=== PATIENT | female | born 1950 | race Caucasian/White ===

== ENCOUNTER → 2016-12-13 | Outpatient (CLI) | payer MEDICARE, BC ==
[2016-12-13 10:03] LABS: Anion Gap 12 mmol/L; Blood Urea Nitrogen 18 mg/dL (7-17); Calcium 9.9 mg/dL (8.4-10.2); Carbon Dioxide 27 mmol/L (22-30); Chloride 100 mmol/L (98-107); Cholesterol 182 mg/dL (<200); Glucose 87 mg/dL (74-99); HDL Cholesterol 66 mg/dL (40-60); Non-African American GFR(MDRD) 55 (>60 ml/min/1.73 sqM); Potassium 4.5 mmol/L (3.5-5.1); Sodium 139 mmol/L (137-145); Triglycerides 113 mg/dL (<150)
== END | disposition home or self-care (01) ==
LOC: LABWHC1 08:23
PROVIDERS: ATTEND Internal Medicine
DX: I11.9 Hypertensive heart disease without heart failure (principal); E78.2 Mixed hyperlipidemia
CPT/HCPCS: 36415; 80048; 80061

== ENCOUNTER 2016-12-15 01:35 | Emergency (ER) | payer MEDICARE, BC ==
[2016-12-15 01:43] VITALS: RESP 18
--- NOTE | 2016-12-15 02:17 | ED ---
General Adult HPI - General Chief complaint: Abdominal Pain Stated complaint: constipation Time Seen by Provider: 12/15/16 01:48 Source: patient Mode of arrival: ambulatory Limitations: no limitations - History of Present Illness Initial comments: This is a 66-year-old female with a history of constipation presents emergency department for constipation. She states the last time she had a bowel movement was 2 days ago. She was told by Dr. Flores to start taking Colace and Metamucil which she has been taking however she has not had a bowel movement. She states that she woke up tonight and felt very nauseated so she decided to come in. She was concerned about blockage. She denies any abdominal pain. No blood in the stool. Appears or chills. No other complaints. - Related Data Home Medications Medication Instructions Recorded Confirmed Calcium Carbonate/Vitamin D3 2 tab PO DAILY 08/20/15 06/12/16 [Calcium 600 + Vit D Tablet] Clopidogrel [Plavix] 75 mg PO DAILY 08/20/15 06/12/16 Diazepam [Valium] 10 mg PO BID 08/20/15 06/12/16 Fluocinolone Acetonide Oil 2 drop BOTH EARS BID PRN 08/20/15 06/12/16 [Fluocinolone Acetonide Oil (Otic)] Fluticasone Nasal [place] [Flonase 1 spray EA NOSTRIL DAILY PRN 08/20/15 06/12/16 Nasal [place]] HYDROcodone/APAP 5-325MG [[place] 5] 1 tab PO BID PRN 08/20/15 06/12/16 Ibuprofen [Advil] 200 mg PO Q6HR PRN 08/20/15 06/12/16 Loperamide [Imodium] 2 mg PO QID PRN 08/20/15 06/12/16 amLODIPine [Norvasc] 5 mg PO BID 08/20/15 06/12/16 Famotidine [Pepcid] 20 mg PO BID 08/21/15 06/12/16 L.acidoph,Paracasei, B.lactis 1 cap PO DAILY 08/21/15 06/12/16 [Probiotic] Meclizine [Antivert] 25 - 50 mg PO DAILY PRN 08/21/15 06/12/16 Oxybutynin Chloride [Oxybutynin 10 mg PO DAILY 08/21/15 06/12/16 Chloride ER] diphenhydrAMINE [Benadryl] 25 mg PO TID PRN 08/21/15 06/12/16 Amoxic-Pot Clav 875-125Mg 1 tab PO Q12HR 03/02/16 06/12/16 [Augmentin 875-125] Simvastatin [Zocor] 10 mg PO HS 03/02/16 06/12/16 Calcium Carbonate [Tums] 500 mg PO DAILY PRN 06/12/16 06/12/16 Estradiol Cream [Estrace Cream] 1 gm VAGINAL MOFR 06/12/16 06/12/16 Loratadine [Claritin] 10 mg PO DAILY PRN 06/12/16 06/12/16 Naphazoline HCl/Glycerin [Clear 15 ml OP DAILY 06/12/16 06/12/16 Eyes Max Redness Rlf Drp] Polyethylene Glycol 3350 [Miralax] 17 gm PO DAILY 06/12/16 06/12/16 Previous Rx's Medication Instructions Recorded Bisacodyl [Dulcolax] 10 mg RECTAL DAILY #15 supp 12/15/16 Allergies Allergy/AdvReac Type Severity Reaction Status Date / Time cefuroxime axetil Allergy Unknown Verified 12/15/16 01:43 [From Ceftin] levofloxacin [From Levaquin] Allergy Unknown Verified 12/15/16 01:43 Review of Systems ROS Statement: Those systems with pertinent positive or pertinent negative responses have been documented in the HPI. ROS Other: All systems not noted in ROS Statement are negative. Past Medical History Past Medical History: CVA/TIA, GERD/Reflux, Hyperlipidemia, Hypertension, Osteoarthritis (OA) Additional Past Medical History / Comment(s): IBS, overactive bladder; vertigo, steroids recently prescribed History of Any Multi-Drug Resistant Organisms: None Reported Past Surgical History: Breast Surgery Past Anesthesia/Blood Transfusion Reactions: No Reported Reaction Past Psychological History: Anxiety Smoking Status: Former smoker Past Alcohol Use History: None Reported Additional Past Alcohol Use History / Comment(s): started smoking age [age] years old quit 30 years ago 2 ppd Past Drug Use History: None Reported - Past Family History Father Family Medical History: Myocardial Infarction ([place]) Mother Family Medical History: Congestive Heart Failure (CHF) General Exam - General Exam Comments Initial Comments: Constitutional: Awake alert Appears comfortable Head: Normocephalic atraumatic Eyes: no conjunctival injection No scleral icterus EOMI Neck: No JVD Supple Heart: Regular rate rhythm normal S1-S2 no murmurs Lungs: Clear to auscultation bilaterally No wheezing No rales Abdomen: Soft nondistended nontender Extremities: Non edematous DP pulses intact Radial pulses intact Neuro: A&Ox3 No focal neurologic deficits Psych: Appropriate mood and affect Limitations: no limitations Course Vital Signs 12/15/16 12/15/16 01:40 03:47 Temperature 96.9 F L 96.8 F L Pulse Rate 87 78 Respiratory 18 18 Rate Blood Pressure 175/74 142/72 O2 Sat by Pulse 98 98 Oximetry Medical Decision Making - Medical Decision Making This is a 58-year-old female who presents emergency department for constipation. She was given a molasses enema with good result and had a bowel movement. She states she felt improved. Told her that I would send her home with o'clock suppositories. She can take these in addition to her Colace and Metamucil. She is to follow-up with Dr. hill as an outpatient. She can return to his worsening symptoms. Disposition Clinical Impression: Constipation Disposition: HOME SELF-CARE Condition: Stable Instructions: Constipation (ED) Prescriptions: Bisacodyl [Dulcolax] 10 mg RECTAL DAILY #15 supp Referrals: Munir Beltran MD [Primary Care Provider] - 1-2 days Luigi Lew MD [Medical Doctor] - 1-2 days
--- NOTE | 2016-12-15 02:48 | XR ---
EXAMINATION TYPE: XR abdomen acute w cxr DATE OF EXAM: 12/15/2016 2:18 AM COMPARISON: Abdominal x-ray 03/02/2016 and chest x-rays 03/02/2016. HISTORY: Constipation for several days TECHNIQUE: Single view of the chest and 2 views of the abdomen are submitted. FINDINGS: Single view of the chest fails demonstrate evidence for acute pulmonary disease. Chronic lung change s are suggested. Heart is not enlarged. There is no evidence for pneumoperitoneum. Supine and upright radiographs of abdomen showed mild to moderate gas distention of bowel loops in th e abdomen with mild focal ileus with few air-fluid levels in the midabdomen. Moderate to large amount of fecal material is noted in the colon and rectum. No unusual calcifications. IMPRESSION: 1. No active lung infiltrates. Chronic lung changes are suggested. 2. Suggestion of mild ileus. 3. Patient is constipated.
[2016-12-15 03:48] VITALS: BP 142/72; PULSE 78; TEMP 96.8
== END 2016-12-15 03:53 | disposition home or self-care (01) ==
LOC: EC 01:35
DX: K59.00 Constipation, unspecified (principal); M19.90 Unspecified osteoarthritis, unspecified site; I10 Essential (primary) hypertension; K21.9 Gastro-esophageal reflux disease without esophagitis; K58.9 Irritable bowel syndrome, unspecified; E78.5 Hyperlipidemia, unspecified; N32.81 Overactive bladder; R42 Dizziness and giddiness; F41.9 Anxiety disorder, unspecified; Z87.891 Personal history of nicotine dependence; Z79.899 Other long term (current) drug therapy; Z79.02 Long term (current) use of antithrombotics/antiplatelets; Z88.1 Allergy status to other antibiotic agents; Z86.73 Personal history of transient ischemic attack (TIA), and cerebral infarction without residual deficits
CPT/HCPCS: 74022; 99284

== ENCOUNTER 2016-12-16 22:54 | Inpatient (IN) | payer MEDICARE, BC ==
[2016-12-16] MEDS ORDERED: SODIUM CHLORIDE 0.9% 1,000 ML IV STA (23:44)
[2016-12-16] MEDS ORDERED: ACETAMINOPHEN IV (For NPO) 1,000 MG in SALINE 1 100ML.BAG IVPB STA (23:46)
[2016-12-16] MEDS ORDERED: FAMOTIDINE 20 MG/2 ML VIAL IV STA (23:46)
[2016-12-17 00:13] LABS: Basophils % (A) 0 %; Hyperchromasia Moderate; Luc # (Auto) 0.18; MCHC 36.2 g/dL (31.0-37.0); RDW 12.5 % (11.5-15.5)
[2016-12-17 00:19] LABS: Amylase 38 U/L (30-110); Anion Gap 8 mmol/L; Calcium 10.1 mg/dL (8.4-10.2); Carbon Dioxide 26 mmol/L (22-30); Chloride 94 mmol/L (98-107); Glucose 100 mg/dL (74-99); Non-African American GFR(MDRD) 55 (>60 ml/min/1.73 sqM); Sodium 128 mmol/L (137-145); Total Bilirubin 0.5 mg/dL (0.2-1.3); Total Protein 6.6 g/dL (6.3-8.2)
[2016-12-17 00:20] LABS: ALT 29 U/L (9-52); AST 17 U/L (14-36); Alkaline Phosphatase 51 U/L (38-126); Blood Urea Nitrogen 12 mg/dL (7-17); Potassium 4.4 mmol/L (3.5-5.1)
[2016-12-17 00:22] LABS: CH 33.4; Eosinophils # (A) 0.1 k/uL (0-0.7); Eosinophils % (A) 1 %; HCT 37.7 % (34.0-46.0); HDW 3.03; HGB 13.6 gm/dL (11.4-16.0); Luc % (Auto) 3; Lymphocytes # (A) 1.6 k/uL (1.0-4.8); Lymphocytes % (A) 23 %; MCH 31.1 pg (25.0-35.0); MCV 86.1 fL (80.0-100.0); Mean Platelet Volume 6.3; Monocytes # (A) 0.4 k/uL (0-1.0); Monocytes % (A) 7 %; Neutrophils # (A) 4.5 k/uL (1.3-7.7); Neutrophils % (A) 67 %; RBC 4.38 m/uL (3.80-5.40); WBC 6.7 k/uL (3.8-10.6); WBC (Perox) 6.89
[2016-12-17 00:26] LABS: Appearance,Urine Clear (Clear); Bilirubin,Urine Negative (Negative); Glucose,Urine (UA) Negative (Negative); Ketones,Urine Negative (Negative); Leukocyte Esterase,Urine Moderate (Negative); Mucus,Urine Rare /hpf; Nitrite,Urine Negative (Negative); Particle Count 1748; Protein,Urine Negative (Negative); RBC,Urine <1 /hpf (0-5); Specific Gravity,Urine 1.003 (1.001-1.035); Squamous Epithelial Cell,Urine 2 /hpf (0-4); UA Billing (MACRO vs. MICRO) MICRO; Urobilinogen,Urine <2.0 mg/dL (<2.0); WBC,Urine 5 /hpf (0-5)
[2016-12-17 00:28] LABS: Creatine Kinase 176 U/L (30-135)
[2016-12-17 00:41] LABS: Creatine Kinase MB 2.1 ng/mL (0.0-2.4); Troponin I <0.012 ng/mL (0.000-0.034)
--- NOTE | 2016-12-17 00:43 | XR ---
EXAMINATION TYPE: XR chest 2V DATE OF EXAM: 12/17/2016 12:19 AM COMPARISON: 12/15/2016 HISTORY: History of cough, history of breast surgery. TECHNIQUE: Frontal and lateral views of the chest are obtained. FINDINGS: Mild chronic interstitial lung changes are suggested bilaterally. There is no focal air space opacity, pleural effusion, or pneumothorax seen. The cardiac silhouette size is within normal limits. Mild degenerative changes are present in the thoracic spine. IMPRESSION: 1. No acute cardiopulmonary process. 2. No significant change.
--- NOTE | 2016-12-17 00:45 | XR ---
EXAMINATION TYPE: XR abdomen 1V DATE OF EXAM: 12/17/2016 12:20 AM CLINICAL HISTORY: Abdominal pain, constipation. TECHNIQUE: 2 supine frontal radiographs of abdomen were obtained. COMPARISON: 12/15/2016 FINDINGS: Scattered gas is seen in non-distended small bowel loops. [id number] fecal material is noted in the colon. There is no visceromegaly, pneumoperitoneum, or abnormal calcification apprec iated. The lung bases are clear and the osseous structures are intact. IMPRESSION: Mild to moderate fecal material is noted in the colon. Overall nonobstructive bowel gas pattern.
--- NOTE | 2016-12-17 00:55 | ED ---
Abdominal Pain HPI - General Chief Complaint: Abdominal Pain Stated Complaint: Nausea/Abd Pain Time Seen by Provider: 12/16/16 23:37 Source: patient, family, RN notes reviewed, old records reviewed Mode of arrival: wheelchair Limitations: no limitations - History of Present Illness Initial Comments: This is a 66-year-old female who presents with complaints of abdominal pain. She states is burning in nature and radiates up and down her abdomen and her lower chest. States he has some chills she was initially diverticulosis no fevers or sweats. She also complains of a toothache which seems to be unrelated. She was seen here 2 days ago and diagnosed with constipation. She' s taken to suppositories one laxative one enema. No other complaints at this time MD Complaint: abdominal pain - Related Data Home Medications Medication Instructions Recorded Confirmed Calcium Carbonate/Vitamin D3 2 tab PO DAILY 08/20/15 06/12/16 [Calcium 600 + Vit D Tablet] Clopidogrel [Plavix] 75 mg PO DAILY 08/20/15 06/12/16 Diazepam [Valium] 10 mg PO BID 08/20/15 06/12/16 Fluocinolone Acetonide Oil 2 drop BOTH EARS BID PRN 08/20/15 06/12/16 [Fluocinolone Acetonide Oil (Otic)] Fluticasone Nasal [place] [Flonase 1 spray EA NOSTRIL DAILY PRN 08/20/15 06/12/16 Nasal [place]] HYDROcodone/APAP 5-325MG [[place] 5] 1 tab PO BID PRN 08/20/15 06/12/16 Ibuprofen [Advil] 200 mg PO Q6HR PRN 08/20/15 06/12/16 Loperamide [Imodium] 2 mg PO QID PRN 08/20/15 06/12/16 amLODIPine [Norvasc] 5 mg PO BID 08/20/15 06/12/16 Famotidine [Pepcid] 20 mg PO BID 08/21/15 06/12/16 L.acidoph,Paracasei, B.lactis 1 cap PO DAILY 08/21/15 06/12/16 [Probiotic] Meclizine [Antivert] 25 - 50 mg PO DAILY PRN 08/21/15 06/12/16 Oxybutynin Chloride [Oxybutynin 10 mg PO DAILY 08/21/15 06/12/16 Chloride ER] diphenhydrAMINE [Benadryl] 25 mg PO TID PRN 08/21/15 06/12/16 Amoxic-Pot Clav 875-125Mg 1 tab PO Q12HR 03/02/16 06/12/16 [Augmentin 875-125] Simvastatin [Zocor] 10 mg PO HS 03/02/16 06/12/16 Calcium Carbonate [Tums] 500 mg PO DAILY PRN 06/12/16 06/12/16 Estradiol Cream [Estrace Cream] 1 gm VAGINAL MOFR 06/12/16 06/12/16 Loratadine [Claritin] 10 mg PO DAILY PRN 06/12/16 06/12/16 Naphazoline HCl/Glycerin [Clear 15 ml OP DAILY 06/12/16 06/12/16 Eyes Max Redness Rlf Drp] Polyethylene Glycol 3350 [Miralax] 17 gm PO DAILY 06/12/16 06/12/16 Previous Rx's Medication Instructions Recorded Bisacodyl [Dulcolax] 10 mg RECTAL DAILY #15 supp 12/15/16 Allergies Allergy/AdvReac Type Severity Reaction Status Date / Time cefuroxime axetil Allergy Unknown Verified 12/16/16 23:16 [From Ceftin] levofloxacin [From Levaquin] Allergy Unknown Verified 12/16/16 23:16 Review of Systems ROS Statement: Those systems with pertinent positive or pertinent negative responses have been documented in the HPI. ROS Other: All systems not noted in ROS Statement are negative. Past Medical History Past Medical History: CVA/TIA, GERD/Reflux, Hyperlipidemia, Hypertension, Osteoarthritis (OA) Additional Past Medical History / Comment(s): IBS, overactive bladder; vertigo, steroids recently prescribed History of Any Multi-Drug Resistant Organisms: None Reported Past Surgical History: Breast Surgery Past Anesthesia/Blood Transfusion Reactions: No Reported Reaction Past Psychological History: Anxiety Smoking Status: Former smoker Past Alcohol Use History: None Reported Additional Past Alcohol Use History / Comment(s): started smoking age [age] years old quit 30 years ago 2 ppd Past Drug Use History: None Reported - Past Family History Father Family Medical History: Myocardial Infarction ([place]) Mother Family Medical History: Congestive Heart Failure (CHF) General Exam - General Exam Comments Initial Comments: This is a well-developed well-nourished awake alert oriented x3 female Limitations: no limitations General appearance: alert, in no apparent distress Head exam: Present: atraumatic, normocephalic, normal inspection Eye exam: Present: normal appearance, PERRL, EOMI. Absent: scleral icterus, conjunctival injection, periorbital swelling ENT exam: Present: normal exam, mucous membranes moist Neck exam: Present: normal inspection. Absent: tenderness, meningismus, lymphadenopathy Respiratory exam: Present: normal lung sounds bilaterally. Absent: respiratory distress, wheezes, rales, rhonchi, stridor Cardiovascular Exam: Present: regular rate, normal rhythm, normal heart sounds. Absent: systolic murmur, diastolic murmur, rubs, gallop, clicks GI/Abdominal exam: Present: soft, normal bowel sounds. Absent: distended, tenderness, guarding, rebound, rigid Extremities exam: Present: normal inspection, full ROM, normal capillary refill. Absent: tenderness, pedal edema, joint swelling, calf tenderness Back exam: Present: normal inspection Neurological exam: Present: alert, oriented X3, CN II-XII intact Psychiatric exam: Present: normal affect, normal mood Skin exam: Present: warm, dry, intact, normal color. Absent: rash Course Vital Signs 12/16/16 23:10 Temperature 98.4 F Pulse Rate 92 Respiratory 16 Rate Blood Pressure 165/74 O2 Sat by Pulse 98 Oximetry Medical Decision Making - Medical Decision Making The patient continues with abdominal pain and nausea she will be admitted for IV hydration and evaluation. I did discuss the case with Dr. Ivy - Lab Data Result diagrams: 12/17/16 00:00 12/17/16 00:00 Lab Results 12/17/16 12/17/16 12/17/16 Range/Units 00:00 00:00 00:00 WBC 6.7 (3.8-10.6) k/uL RBC 4.38 (3.80-5.40) m/uL Hgb 13.6 (11.4-16.0) gm/dL Hct 37.7 (34.0-46.0) % MCV 86.1 (80.0-100.0) fL MCH 31.1 (25.0-35.0) pg MCHC 36.2 (31.0-37.0) g/dL RDW 12.5 (11.5-15.5) % Plt Count 336 (150-450) k/uL Neutrophils % 67 % Lymphocytes % 23 % Monocytes % 7 % Eosinophils % 1 % Basophils % 0 % Neutrophils # 4.5 (1.3-7.7) k/uL Lymphocytes # 1.6 (1.0-4.8) k/uL Monocytes # 0.4 (0-1.0) k/uL Eosinophils # 0.1 (0-0.7) k/uL Basophils # 0.0 (0-0.2) k/uL Hyperchromasia Moderate Sodium 128 L (137-145) mmol/L Potassium 4.4 (3.5-5.1) mmol/L Chloride 94 L (98-107) mmol/L Carbon Dioxide 26 (22-30) mmol/L Anion Gap 8 mmol/L BUN 12 (7-17) mg/dL Creatinine 1.00 (0.52-1.04) mg/dL Est GFR (MDRD) Af Amer >60 (>60 ml/min/1.73 sqM) Est GFR (MDRD) Non-Af 55 (>60 ml/min/1.73 sqM) Glucose 100 H (74-99) mg/dL Calcium 10.1 (8.4-10.2) mg/dL Magnesium 2.0 (1.6-2.3) mg/dL Total Bilirubin 0.5 (0.2-1.3) mg/dL AST 17 (14-36) U/L ALT 29 (9-52) U/L Alkaline Phosphatase 51 (38-126) U/L Total Creatine Kinase 176 H (30-135) U/L CK-MB (CK-2) 2.1 (0.0-2.4) ng/mL CK-MB (CK-2) Rel Index 1.2 Troponin I <0.012 (0.000-0.034) ng/mL Total Protein 6.6 (6.3-8.2) g/dL Albumin 4.0 (3.5-5.0) g/dL Amylase 38 (30-110) U/L Lipase 89 (23-300) U/L Urine Color Urine Appearance (Clear) Urine pH (5.0-8.0) Ur Specific [place] (1.001-1.035) Urine Protein (Negative) Urine Glucose (UA) (Negative) Urine Ketones (Negative) Urine Blood (Negative) Urine Nitrate (Negative) Urine Bilirubin (Negative) Urine Urobilinogen (<2.0) mg/dL Ur Leukocyte Esterase (Negative) Urine RBC (0-5) /hpf Urine WBC (0-5) /hpf Ur Squamous Epith Cells (0-4) /hpf Urine Mucus (None) /hpf 12/17/16 Range/Units 00:00 WBC (3.8-10.6) k/uL RBC (3.80-5.40) m/uL Hgb (11.4-16.0) gm/dL Hct (34.0-46.0) % MCV (80.0-100.0) fL MCH (25.0-35.0) pg MCHC (31.0-37.0) g/dL RDW (11.5-15.5) % Plt Count (150-450) k/uL Neutrophils % % Lymphocytes % % Monocytes % % Eosinophils % % Basophils % % Neutrophils # (1.3-7.7) k/uL Lymphocytes # (1.0-4.8) k/uL Monocytes # (0-1.0) k/uL Eosinophils # (0-0.7) k/uL Basophils # (0-0.2) k/uL Hyperchromasia Sodium (137-145) mmol/L Potassium (3.5-5.1) mmol/L Chloride (98-107) mmol/L Carbon Dioxide (22-30) mmol/L Anion Gap mmol/L BUN (7-17) mg/dL Creatinine (0.52-1.04) mg/dL Est GFR (MDRD) Af Amer (>60 ml/min/1.73 sqM) Est GFR (MDRD) Non-Af (>60 ml/min/1.73 sqM) Glucose (74-99) mg/dL Calcium (8.4-10.2) mg/dL Magnesium (1.6-2.3) mg/dL Total Bilirubin (0.2-1.3) mg/dL AST (14-36) U/L ALT (9-52) U/L Alkaline Phosphatase (38-126) U/L Total Creatine Kinase (30-135) U/L CK-MB (CK-2) (0.0-2.4) ng/mL CK-MB (CK-2) Rel Index Troponin I (0.000-0.034) ng/mL Total Protein (6.3-8.2) g/dL Albumin (3.5-5.0) g/dL Amylase (30-110) U/L Lipase (23-300) U/L Urine Color Colorless Urine Appearance Clear (Clear) Urine pH 7.0 (5.0-8.0) Ur Specific [place] 1.003 (1.001-1.035) Urine Protein Negative (Negative) Urine Glucose (UA) Negative (Negative) Urine Ketones Negative (Negative) Urine Blood Negative (Negative) Urine Nitrate Negative (Negative) Urine Bilirubin Negative (Negative) Urine Urobilinogen <2.0 (<2.0) mg/dL Ur Leukocyte Esterase Moderate H (Negative) Urine RBC <1 (0-5) /hpf Urine WBC 5 (0-5) /hpf Ur Squamous Epith Cells 2 (0-4) /hpf Urine Mucus Rare H (None) /hpf - Radiology Data Radiology results: report reviewed (I did review the imaging and reports no definite acute findings or is evidence of uterine fibroids and diverticulosis.) , image reviewed Disposition Clinical Impression: Abdominal pain, Intractable nausea and vomiting, Hyponatremia Disposition: ADMITTED IP TO THIS [facility] Condition: Stable Decision Time: 02:30
[2016-12-17] MEDS ORDERED: KETOROLAC 30 MG/ML 1 ML VIAL IVP STA (01:11)
[2016-12-17] MEDS ORDERED: MORPHINE SULFATE 4 MG/ML SYRINGE IVP STA (01:35)
[2016-12-17] MEDS ORDERED: SODIUM CHLORIDE 0.9% 1,000 ML IV STA (01:35)
--- NOTE | 2016-12-17 02:13 | CT ---
EXAMINATION TYPE: CT abdomen pelvis wo con DATE OF EXAM: 12/17/2016 1:18 AM COMPARISON: 03/02/2016 HISTORY: Abd pain, constipation. CT DLP: 234.50 mGycm Automated exposure control for dose reduction was used. TECHNIQUE: Helical acquisition of images was performed from the lung bases through the pelvis. FINDINGS: LUNG BASES: No significant abnormality is appreciated. LIVER/GB: Slight irregularity is noted in the outer contour of liver and possibility of mild acidosis changes and also portal hypertension changes cannot be excluded. Gallbladder is contracted. Thickened wall of gallbladder is probably related to contracted status. PANCREAS: No significant abnormality is seen. SPLEEN: No significant abnormality is seen. ADRENALS: No significant abnormality is seen. KIDNEYS: Mild fullness is noted in the bilateral kidneys without significant hydronephrosis or obstru cting opaque stones. RETROPERITONEAL ADENOPATHY: None visualized REPRODUCTIVE ORGANS: Uterus appears slightly prominent with possible uterine fibroids. There is 3.4 x 3.6 cm solid mass like area in the right adnexa in the axial image 66 and is probably related to sub serosal fibroid. Ovaries are not well visualized. URINARY BLADDER: Urinary bladder is moderately distended. PELVIC ADENOPATHY: None visualized. OSSEOUS STRUCTURES: There is mild degenerative changes in the thoracolumbar spine with mild grade 1 anterior spondylolisthesis of L4 on L5 vertebra with vacuum disc phenomenon with the degenerative dis c disease changes. BOWEL: Small hiatal hernia is noted. Small bowel loops showed mild fluid distention without significant obstruction. Colon showed moderate fecal material and gas. Mild to moderate colonic diverticulosis is noted. No si gnificant acute diverticulitis changes are present. Visualized appendix appears grossly unremarkable in the coronal image 29. OTHER: Small fat-containing umbilical hernia is noted. IMPRESSION: 1. MODERATE FECAL MATERIAL IN THE COLON. MILD COLONIC DIVERTICULOSIS IS NOTED WITHOUT ACUTE DIVERTICU LITIS. 2. MILD FULLNESS IS NOTED IN BILATERAL KIDNEYS WITHOUT SIGNIFICANT HYDRONEPHROSIS OR OBSTRUCTING STON ES. 3. APPENDIX APPEARS UNREMARKABLE. 4. 3.4 x 3.6 cm solid masslike area in the right side of the uterus is probably related to uterine fi broid. An ultrasound study would BE helpful in the evaluation. 5. No significant acute processes noted in the abdomen and pelvis.
[2016-12-17] MEDS ORDERED: ONDANSETRON 4 MG/2 ML VIAL IVP STA (02:32)
[2016-12-17] MEDS ORDERED: DICYCLOMINE 10 MG/ML 2 ML AMP IM STA (02:33)
[2016-12-17] MEDS ORDERED: NALOXONE 0.4 MG/ML 1 ML VIAL IV PRN (03:30)
[2016-12-17] MEDS: SODIUM CHLORIDE 0.9% 1,000 ML IV SCH ×3 (04:37→17:06)
[2016-12-17] MEDS ORDERED: KETOROLAC 30 MG/ML 1 ML VIAL IVP SCH (06:00)
[2016-12-17] MEDS: HYDROmorphone 1 MG/ML 1 ML SYRINGE IV PRN ×4 (08:45→23:29)
[2016-12-17] MEDS: ONDANSETRON 4 MG/2 ML VIAL IVP PRN ×2 (08:45→19:15)
[2016-12-17] MEDS: PANTOPRAZOLE 40 MG/10 ML VIAL IV SCH (10:01)
--- NOTE | 2016-12-17 16:28 | P.GSCN ---
History of Present Illness Consult date: 12/17/16 Reason for Consult: Abdominal pain constipation History of present illness: Patient is known to our service. The patient has issues with chronic constipation. She had an upper and lower endoscopy last year which did not reveal any evidence of obstruction. She has tried a variety of different stool softeners and cathartics at home. She struggles between constipation and diarrhea. She came to the hospital because of lower abdominal pain and persistent constipation. Enema is resolved her constipation she states. She had a CAT scan which showed a right pelvic mass for which a pelvic ultrasound is been ordered. Review of Systems The patient denies any acute changes in his vision or hearing, no dysphagia or odynophagia, no chest pain or shortness of breath, no dysuria or hematuria, no headache, no runny nose, no rectal bleeding or melena, no unexplained weight loss Past Medical History Past Medical History: CVA/TIA, GERD/Reflux, Hyperlipidemia, Hypertension, Osteoarthritis (OA) Additional Past Medical History / Comment(s): IBS, overactive bladder; vertigo, steroids recently prescribed, diverticulosis, uterine fibroids History of Any Multi-Drug Resistant Organisms: None Reported Past Surgical History: Breast Surgery Past Anesthesia/Blood Transfusion Reactions: No Reported Reaction Past Psychological History: Anxiety Smoking Status: Former smoker Past Alcohol Use History: None Reported Additional Past Alcohol Use History / Comment(s): started smoking age [age] years old quit 30 years ago 2 ppd Past Drug Use History: None Reported - Past Family History Father Family Medical History: Myocardial Infarction ([place]) Mother Family Medical History: Congestive Heart Failure (CHF) Medications and Allergies Home Medications Medication Instructions Recorded Confirmed Type Calcium Carbonate/Vitamin D3 2 tab PO DAILY 08/20/15 12/17/16 History [Calcium 600 + Vit D Tablet] Clopidogrel [Plavix] 75 mg PO DAILY 08/20/15 12/17/16 History Diazepam [Valium] 10 mg PO BID 08/20/15 12/17/16 History Fluocinolone Acetonide Oil 2 drop BOTH EARS BID PRN 08/20/15 12/17/16 History [Fluocinolone Acetonide Oil (Otic)] HYDROcodone/APAP 5-325MG [[place] 5] 1 tab PO BID PRN 08/20/15 12/17/16 History Ibuprofen [Advil] 200 mg PO Q6HR PRN 08/20/15 12/17/16 History Loperamide [Imodium] 2 mg PO QID PRN 08/20/15 12/17/16 History amLODIPine [Norvasc] 5 mg PO BID 08/20/15 12/17/16 History L.acidoph,Paracasei, B.lactis 1 cap PO DAILY 08/21/15 12/17/16 History [Probiotic] Meclizine [Antivert] 25 - 50 mg PO DAILY PRN 08/21/15 12/17/16 History Oxybutynin Chloride [Oxybutynin 10 mg PO DAILY 08/21/15 12/17/16 History Chloride ER] diphenhydrAMINE [Benadryl] 25 mg PO TID PRN 08/21/15 12/17/16 History Calcium Carbonate [Tums] 500 - 1,000 mg PO TID PRN 06/12/16 12/17/16 History Loratadine [Claritin] 10 mg PO DAILY PRN 06/12/16 12/17/16 History Naphazoline HCl/Glycerin [Clear 1 - 2 drops BOTH EYES DAILY PRN 06/12/16 History Eyes Max Redness Rlf Drp] Acetaminophen [Tylenol Arthritis] 650 mg PO Q4-6H PRN 12/17/16 12/17/16 History Aspirin/Acetaminophen/Caffeine 1 - 2 tab PO BID PRN 12/17/16 12/17/16 History [Excedrin Migraine Caplet] Atorvastatin Calcium [Lipitor] 10 mg PO DAILY 12/17/16 12/17/16 History Bisacodyl [Dulcolax] 10 mg RECTAL DAILY PRN 12/17/16 12/17/16 History Docusate [Colace] 100 mg PO BID 12/17/16 12/17/16 History Fexofenadine HCl [Charo Allergy] 90 mg PO DAILY 12/17/16 12/17/16 History Naproxen Sodium [Aleve] 220 mg PO Q12H PRN 12/17/16 12/17/16 History Phenyleph/Pramoxin/Glycr/W.pet 1 applic RECTAL DAILY PRN 12/17/16 12/17/16 History [Preparation H Cream] Phenylephrine HCl/[place] Butter 1 supp RECTAL DAILY PRN 12/17/16 12/17/16 History [Preparation H Suppository] Ranitidine HCl [Zantac] 75 mg PO AC-BID PRN 12/17/16 12/17/16 History Simethicone [Gas-X] 125 mg PO DAILY PRN 12/17/16 12/17/16 History Spironolactone [Aldactone] 25 mg PO BID 12/17/16 12/17/16 History Triamcinolone Acetonide [Nasacort] 1 - 2 spray EA NOSTRIL DAILY PRN 12/17/1604/27 History Wheat Dextrin [Benefiber] 1 packet PO TID 12/17/16 12/17/16 History Allergies Allergy/AdvReac Type Severity Reaction Status Date / Time cefuroxime axetil Allergy Unknown Verified 12/17/16 08:27 [From Ceftin] dicyclomine [From Bentyl] Allergy Unknown Verified 12/17/16 08:27 hyoscyamine [From Levbid] Allergy Unknown Verified 12/17/16 08:27 levofloxacin [From Levaquin] Allergy Unknown Verified 12/17/16 08:27 tramadol Allergy Unknown Verified 12/17/16 08:27 Surgical - Exam Vital Signs Temp Pulse Resp BP Pulse Ox 98.4 F 92 16 165/74 98 12/16/16 23:10 12/16/16 23:10 12/16/16 23:10 12/16/16 23:10 12/16/16 23:10 Physical exam: General: Well-developed, well-nourished HEENT: Normocephalic, sclerae nonicteric Abdomen: Nontender, nondistended Extremities: No edema Neuro: Alert and oriented Results - Labs 12/17/16 00:00 12/17/16 00:00 Assessment and Plan (1) Chronic constipation Narrative/Plan: Continue stool softeners. No surgical intervention planned. Status: Acute
[2016-12-17] MEDS ORDERED: DICYCLOMINE 10 MG CAP PO PRN (16:29)
[2016-12-17] MEDS ORDERED: MAGNESIUM HYDROXIDE 2,400 MG/10 ML CUP PO PRN (16:29)
--- NOTE | 2016-12-17 18:47 | US ---
EXAMINATION TYPE: US pelvis complete transvag DATE OF EXAM: 12/17/2016 6:24 PM COMPARISON: US, CT, and MRI in PACS CLINICAL HISTORY: uterine fibroids. Patient states she is not having any pelvic pain at this time TECHNIQUE: Transvaginal (TV) and Transabdominal (TA) Date of LMP: About 20 years ago EXAM MEASUREMENTS: Uterus: 4.5 x 2.6 x 3.0 cm cm Endometrial Stripe: 0.2 cm Right Ovary: Not visualized with certainty Left Ovary: 2.2 x 1.1 x 1.5 cm TECHNOLOGIST IMPRESSION: 1. Uterus: Multiple probable fibroids visualized, largest in the left uterine fundus measuring 2.2 x 1.8 x 2.1 2. Endometrium: wnl 3. Right Ovary: Not visualized with certainty. Within the right adnexa, there is a heterogeneous are a measuring 4.8 x 3.0 x 4.2 cm. There is bloodflow within this area. 4. Left Ovary: wnl 5. Bilateral Adnexa: Left adnexa: wnl, right adnexa: see above 6. Posterior cul-de-sac: wnl IMPRESSION: There is a complex area that measures overall 5 x 3 cm involving the right adnexa that co uld be an enlarged right ovary and solid ovarian mass. Follow-up is recommended.
--- NOTE | 2016-12-17 20:37 | HP ---
DATE OF ADMISSION: 12/17/2016 CHIEF COMPLAINT: Abdominal pain, nausea and vomiting. HISTORY OF PRESENT ILLNESS: This is a 66-year-old white female who was having abdominal pain, nausea and vomiting for about 2 days. Patient was in the emergency room with constipation 2 or 3 days ago. Patient denies any fever. Denies any vomiting of blood. She also has had no diarrhea. In the emergency room, her CT scan showed evidence of diverticulosis but no diverticulitis. There was a mass near the uterus, possibly due to fibroid. CBC showed a WBC count of 6.7, hemoglobin 13.6 and platelet count 336,000. Sodium was 128, potassium 4.4; BUN 12, creatinine 1.00. Blood sugar was 100. Liver enzymes within normal limits. Amylase and lipase within normal limits. Patient was admitted to the hospital for further evaluation and treatment. PAST MEDICAL HISTORY: 1. History of hypertensive cardiovascular disease. 2. Chronic obstructive pulmonary disease. 3. Gastroesophageal reflux disease. 4. Past history of CVA and TIA. Her current medications include: 1. Plavix 75 mg p.o. daily. 2. Valium 10 mg b.i.d. p.r.n. 3. Nasal sprays. 4. Calcium with vitamin D. 5. [place] 5/325 one b.i.d. p.r.n. 6. Imodium p.r.n. 7. Antivert 25 mg daily p.r.n. for dizziness. 8. Oxybutynin 10 mg p.o. daily. ALLERGIES: She has QUESTIONABLE ALLERGY TO CEFTIN AND LEVAQUIN. She does not smoke and she does not drink alcohol. Family history is strongly positive for heart disease. REVIEW OF SYSTEMS: Patient denies any headache. Appetite has been poor lately. She denies any chest pain or cough. She has abdominal pain, as mentioned before. She has no polyuria or dysuria. She has no neurological symptoms. Physical examination reveals a 66-year-old white female, well nourished and well developed. She is alert and oriented. She is complaining of abdominal pain, but she is not in acute distress. There is no jaundice. There is no generalized lymphadenopathy. There are no petechiae or bruises. Temperature in the ER was 98.4, respiration 16, blood pressure 165/74, oxygen saturation 98%. There is no jaundice. There is no generalized lymphadenopathy. There are no petechiae or bruises. Examination of the ENT is negative. Neck is supple. There is no jugular venous distention. There is no goiter. There is no carotid bruit. Heart is in sinus rhythm. Lungs are clear to auscultation and percussion. Abdomen is soft and non-tender. There is no mass palpable. Examination of the lower extremities reveals no pitting edema. Neurologic examination does not reveal any localizing signs. IMPRESSION: 1. Abdominal pain, nausea and vomiting. 2. Hyponatremia. 3. Diverticulosis of the colon. 4. Past history of cerebrovascular accident and transient ischemic attack. 5. Hypertensive cardiovascular disease. 6. Hyperlipidemia. 7. Chronic obstructive pulmonary disease. PLAN: Patient will be admitted to hospital. She will be given IV fluids to correct the electrolyte imbalance. Also initially she will be placed on liquid diet and placed back on her previous home medications. Pain will be controlled with Dilaudid given on a p.r.n. basis. Will also get surgical consultation; ( ) has asked Dr. Lew to see the patient in consultation. Prognosis is guarded. The diagnoses, prognosis and therapeutic plans were discussed in detail with the patient.
[2016-12-18] MEDS: HYDROmorphone 1 MG/ML 1 ML SYRINGE IV PRN ×5 (03:31→21:14)
[2016-12-18] MEDS: POLYETHYLENE GLYCOL 3350 17 GM POWD.PACK PO SCH (07:45)
[2016-12-18] MEDS: PANTOPRAZOLE 40 MG/10 ML VIAL IV SCH (07:45)
[2016-12-18] MEDS: SODIUM CHLORIDE 0.9% 1,000 ML IV SCH (07:45)
--- NOTE | 2016-12-18 10:45 | PN ---
DATE OF SERVICE: 12/18/2016 This is a 66-year-old white female who was admitted with abdominal pain, nausea and vomiting and patient also was found to have hyponatremia and patient was admitted to the hospital for further evaluation and treatment. She had a CT scan of the abdomen which showed some diverticulosis and there was a mass in the pelvis near the uterus and ultrasound was obtained. This showed a possible solid ovarian mass on the right side and patient was also seen by Dr. Louann mejias. Because the CT scan showed diverticulosis and apparently there was no evidence of diverticulitis. Patient is getting IV fluids to correct the hyponatremia. Patient is feeling better, but still has some nausea. Vital signs are otherwise stable. Heart is in sinus rhythm. Lungs are clear. There is no acute cardiorespiratory problems. We will get a gynecology consultation for the abdominal pain and possible right ovarian mass. Prognosis is guarded. The diagnosis, prognosis, and therapeutic plans were discussed in detail with the patient.
[2016-12-18 10:57] LABS: Basophils % (A) 0 %; CH 32.9; CHCM 37.5; Eosinophils % (A) 0 %; HCT 36.1 % (34.0-46.0); HDW 3.11; HGB 12.7 gm/dL (11.4-16.0); Hyperchromasia Slight; Luc % (Auto) 1; Lymphocytes % (A) 12 %; MCHC 35.1 g/dL (31.0-37.0); MCV 88.3 fL (80.0-100.0); Mean Platelet Volume 6.4; Monocytes # (A) 0.5 k/uL (0-1.0); Monocytes % (A) 6 %; Neutrophils # (A) 6.9 k/uL (1.3-7.7); Neutrophils % (A) 81 %; RBC 4.09 m/uL (3.80-5.40); RDW 12.4 % (11.5-15.5); WBC 8.6 k/uL (3.8-10.6); WBC (Perox) 9.42
[2016-12-18 11:08] LABS: Anion Gap 8 mmol/L; Blood Urea Nitrogen 4 mg/dL (7-17); Calcium 8.8 mg/dL (8.4-10.2); Carbon Dioxide 25 mmol/L (22-30); Chloride 95 mmol/L (98-107); Glucose 105 mg/dL (74-99); Non-African American GFR(MDRD) >60 (>60 ml/min/1.73 sqM); Potassium 3.9 mmol/L (3.5-5.1); Sodium 128 mmol/L (137-145)
[2016-12-18] MEDS: ONDANSETRON 4 MG/2 ML VIAL IVP PRN ×2 (13:11→21:10)
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
[2016-12-19] MEDS: SODIUM CHLORIDE 0.9% 1,000 ML IV SCH ×2 (01:57→04:57)
[2016-12-19] MEDS: HYDROmorphone 1 MG/ML 1 ML SYRINGE IV PRN ×4 (01:57→22:58)
[2016-12-19] MEDS: ONDANSETRON 4 MG/2 ML VIAL IVP PRN ×2 (04:58→17:56)
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
[2016-12-19] MEDS: PANTOPRAZOLE 40 MG TABLET PO SCH (09:22)
[2016-12-19] MEDS: POLYETHYLENE GLYCOL 3350 17 GM POWD.PACK PO SCH (09:22)
--- NOTE | 2016-12-19 12:28 | P.PN ---
Subjective Principal diagnosis: Constipation Patient doing well today. Her pain is improved. She is tolerating diet. She is having loose stools. Objective - Vital Signs Vital signs: Vital Signs Temp 97.1 F L 12/19/16 07:00 Pulse 77 12/19/16 07:00 Resp 18 12/19/16 07:00 BP 148/72 12/19/16 07:00 Pulse Ox 94 L 12/19/16 07:00 Intake & Output 12/18/16 12/19/16 12/19/16 18:59 06:59 18:59 Intake Total 500 Balance 500 Intake: Oral 500 Other: Voiding Method Toilet # Voids 3 1 - Exam Abdomen: Soft, nondistended, no appreciable tenderness - Labs CBC & Chem 7: 12/18/16 09:51 12/18/16 09:51 Assessment and Plan (1) Chronic constipation Narrative/Plan: Continue diet as tolerated. Continue stool softeners. I will be leaving town today. We'll sign off at this point. Please contact my coverage if issues arise. Status: Acute
--- NOTE | 2016-12-19 17:21 | PN ---
DATE OF SERVICE: 12/19/2016 This is a 66-year-old white female who was admitted with abdominal pain, nausea and vomiting. Patient's CT scan showed evidence of some diverticulosis, but no diverticulitis. No other abnormality except that in the pelvis there is some abnormal masses which look like a fibroid of the uterus, but there was one lesion in the region of the right ovary which was questionable and an ultrasound also was done that there was a suspicion of solid mass in the ovary. Dr. 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 The patient also was seen by Dr. Lew in consultation and he felt that the patient does not need any surgical intervention. The patient's overall symptoms are improving. Patient had a persistent hyponatremia. At the time of admission, sodium was 128 and the patient received IV normal saline and today also patient's serum sodium is 128 and because of his persistent hyponatremia, we will get a nephrology consultation. Otherwise, patient's vital signs are stable. Heart is in sinus rhythm. Lungs are clear. She denies any chest pain or shortness of breath. There are no acute cardiorespiratory problems. Will continue current medications and will have the human services assistant evaluate the patient. Overall prognosis is guarded.
[2016-12-20] MEDS: HYDROmorphone 1 MG/ML 1 ML SYRINGE IV PRN ×3 (04:49→20:11)
[2016-12-20] MEDS: SODIUM CHLORIDE 0.9% 1,000 ML IV SCH (04:49)
[2016-12-20] MEDS: FEXOFENADINE 180 MG TAB PO SCH (07:53)
[2016-12-20] MEDS: ONDANSETRON 4 MG/2 ML VIAL IVP PRN ×2 (07:53→20:11)
[2016-12-20] MEDS: PANTOPRAZOLE 40 MG TABLET PO SCH (07:53)
[2016-12-20 12:00] LABS: Anion Gap 9 mmol/L; Blood Urea Nitrogen 8 mg/dL (7-17); Calcium 9.6 mg/dL (8.4-10.2); Carbon Dioxide 29 mmol/L (22-30); Chloride 101 mmol/L (98-107); Glucose 99 mg/dL (74-99); Non-African American GFR(MDRD) >60 (>60 ml/min/1.73 sqM); Potassium 4.1 mmol/L (3.5-5.1); Sodium 139 mmol/L (137-145)
--- NOTE | 2016-12-20 13:27 | P.NPCON ---
History of Present Illness - Reason for Consult hypernatremia - History of Present Illness Reason for consultation: Hyponatremia History of present illness: Patient is a 66-year-old female seen in renal consultation for hyponatremia. Her sodium level on 12/13/2016 was 139. Her sodium level on December 17 and was 128. This morning is 139. Patient presented to the hospital with nausea and vomiting. Patient does a history of diverticulosis. She denies any diarrhea. Patient states oral intake has been quite poor due to abdominal cramps. Does admit to drinking quite a bit of water. Denies chest pain or shortness of breath. She's been maintained on IV fluids since admission with improvement in hyponatremia. She still feels quite nauseous. GFR is at baseline with creatinine of 0.84 today. Vital signs are stable. General: The patient appeared well nourished and normally developed. HEENT: Head exam is unremarkable. Neck is without jugular venous distension. LUNGS: Lungs are clear to auscultation and percussion. Breath sounds decreased. HEART: Rate and Rhythm are regular. First and second heart sounds normal. No murmurs, rubs or gallops. ABDOMEN: Abdominal exam reveals normal bowel sounds. Non-tender and non- distended. No evidence of peritonitis. EXTREMITITES: No clubbing, cyanosis, or edema. Past Medical History Past Medical History: CVA/TIA, GERD/Reflux, Hyperlipidemia, Hypertension, Osteoarthritis (OA) Additional Past Medical History / Comment(s): IBS, overactive bladder; vertigo, steroids recently prescribed, diverticulosis, uterine fibroids History of Any Multi-Drug Resistant Organisms: None Reported Past Surgical History: Breast Surgery Past Anesthesia/Blood Transfusion Reactions: No Reported Reaction Past Psychological History: Anxiety Smoking Status: Former smoker Past Alcohol Use History: None Reported Additional Past Alcohol Use History / Comment(s): started smoking age [age] years old quit 30 years ago 2 ppd Past Drug Use History: None Reported - Past Family History Father Family Medical History: Myocardial Infarction ([place]) Mother Family Medical History: Congestive Heart Failure (CHF) Medications and Allergies Home Medications Medication Instructions Recorded Confirmed Type Calcium Carbonate/Vitamin D3 2 tab PO DAILY 08/20/15 12/17/16 History [Calcium 600 + Vit D Tablet] Clopidogrel [Plavix] 75 mg PO DAILY 08/20/15 12/17/16 History Diazepam [Valium] 10 mg PO BID 10/10/15 02/06/17 History Fluocinolone Acetonide Oil 2 drop BOTH EARS BID PRN 08/20/15 12/17/16 History [Fluocinolone Acetonide Oil (Otic)] HYDROcodone/APAP 5-325MG [[place] 5] 1 tab PO BID PRN 08/20/15 12/17/16 History Ibuprofen [Advil] 200 mg PO Q6HR PRN 08/20/15 12/17/16 History Loperamide [Imodium] 2 mg PO QID PRN 08/20/15 12/17/16 History amLODIPine [Norvasc] 5 mg PO BID 08/20/15 12/17/16 History L.acidoph,Paracasei, B.lactis 1 cap PO DAILY 08/21/15 12/17/16 History [Probiotic] Meclizine [Antivert] 25 - 50 mg PO DAILY PRN 08/21/15 12/17/16 History Oxybutynin Chloride [Oxybutynin 10 mg PO DAILY 08/21/15 12/17/16 History Chloride ER] diphenhydrAMINE [Benadryl] 25 mg PO TID PRN 08/21/15 12/17/16 History Calcium Carbonate [Tums] 500 - 1,000 mg PO TID PRN 06/12/16 12/17/16 History Loratadine [Claritin] 10 mg PO DAILY PRN 06/12/16 12/17/16 History Naphazoline HCl/Glycerin [Clear 1 - 2 drops BOTH EYES DAILY PRN 06/12/16 History Eyes Max Redness Rlf Drp] Acetaminophen [Tylenol Arthritis] 650 mg PO Q4-6H PRN 12/17/16 12/17/16 History Aspirin/Acetaminophen/Caffeine 1 - 2 tab PO BID PRN 12/17/16 12/17/16 History [Excedrin Migraine Caplet] Atorvastatin Calcium [Lipitor] 10 mg PO DAILY 12/17/16 12/17/16 History Bisacodyl [Dulcolax] 10 mg RECTAL DAILY PRN 12/17/16 12/17/16 History Docusate [Colace] 100 mg PO BID 12/17/16 12/17/16 History Fexofenadine HCl [Charo Allergy] 90 mg PO DAILY 12/17/16 12/17/16 History Naproxen Sodium [Aleve] 220 mg PO Q12H PRN 12/17/16 12/17/16 History Phenyleph/Pramoxin/Glycr/W.pet 1 applic RECTAL DAILY PRN 12/17/16 12/17/16 History [Preparation H Cream] Phenylephrine HCl/[place] Butter 1 supp RECTAL DAILY PRN 12/17/16 12/17/16 History [Preparation H Suppository] Ranitidine HCl [Zantac] 75 mg PO AC-BID PRN 12/17/16 12/17/16 History Simethicone [Gas-X] 125 mg PO DAILY PRN 12/17/16 12/17/16 History Spironolactone [Aldactone] 25 mg PO BID 12/17/16 12/17/16 History Triamcinolone Acetonide [Nasacort] 1 - 2 spray EA NOSTRIL DAILY PRN 12/17/1604/27 History Wheat Dextrin [Benefiber] 1 packet PO TID 12/17/16 12/17/16 History Allergies Allergy/AdvReac Type Severity Reaction Status Date / Time cefuroxime axetil Allergy Unknown Verified 12/17/16 08:27 [From Ceftin] dicyclomine [From Bentyl] Allergy Unknown Verified 12/17/16 08:27 hyoscyamine [From Levbid] Allergy Unknown Verified 12/17/16 08:27 levofloxacin [From Levaquin] Allergy Unknown Verified 12/17/16 08:27 tramadol Allergy Unknown Verified 12/17/16 08:27 Physical Exam Vitals: Vital Signs Temp Pulse Resp BP Pulse Ox 12/20/16 07:00 96.7 F L 91 16 130/75 97 12/19/16 23:00 98.2 F 87 16 136/74 96 Intake and Output 12/19/16 12/20/16 12/20/16 22:59 06:59 14:59 Other: # Voids 2 2 Results - Lab Results Most recent lab results Calcium 9.6 mg/dL (8.4-10.2) 12/20/16 11:33 Magnesium 2.0 mg/dL (1.6-2.3) 12/17/16 00:00 12/18/16 09:51 12/20/16 11:33 Assessment and Plan Plan: Assessment: #1. Hypovolemic hyponatremia secondary to excess water intake in the setting of poor oral intake. There may also be a component of SIADH from nausea. Improving. Up to 139 this morning. Hyponatremia is acute in nature as sodium level on 12/13/2016 was 139. #2. Diverticulosis. #3. History of irritable bowel disease. Plan: Hep-Lock IV fluids. I will add ensure with meals. Currently on a full liquid diet. Repeat electrolytes in the morning. Thank you for the consultation. I will continue to follow the patient with you during her hospital stay.
[2016-12-20] MEDS: POLYETHYLENE GLYCOL 3350 17 GM POWD.PACK PO SCH (17:58)
--- NOTE | 2016-12-20 18:02 | PN ---
DATE OF SERVICE: 12/20/2016 This 66-year-old white female who was admitted with abdominal pain, nausea and vomiting and the patient was also found to have severe hyponatremia. Her sodium was 128. Also patient had a CT scan of the abdomen and pelvis which showed diverticulosis without any diverticulitis and also there was a masslike lesion at the region of the right ovary and the patient was seen by Dr. Lew in consultation and he felt that there is no need for surgical intervention. The patient was also was seen by Dr. Hernandez in consultation and felt that this is related to her uterine fibroids. Patient was given IV fluids to correct the electrolyte imbalance, but she did have persistent hyponatremia and Nephrology consultation has been requested. Today her sodium has come up to 189 and patient is still complaining of abdominal discomfort and loose stools and the patient was seen by Dr. Edwin Rueda in the past for possibly irritable bowel syndrome and the patient is insisting on getting Dr. Edwin Rueda to see her before discharge. Will put in a consultation for Dr. Edwin Rueda to see her. Patient's vital signs are otherwise stable. She denies any chest pain or cough and there is no acute cardiorespiratory problems. Her prognosis is guarded.
[2016-12-21] MEDS: HYDROmorphone 1 MG/ML 1 ML SYRINGE IV PRN ×2 (01:09→06:15)
[2016-12-21 07:48] VITALS: BP 142/87; PULSE 78; RESP 18; TEMP 98.4
[2016-12-21] MEDS: FEXOFENADINE 180 MG TAB PO SCH (08:04)
[2016-12-21] MEDS: ONDANSETRON 4 MG/2 ML VIAL IVP PRN (08:05)
[2016-12-21] MEDS: POLYETHYLENE GLYCOL 3350 17 GM POWD.PACK PO SCH ×2 (08:05→08:07)
[2016-12-21] MEDS: PANTOPRAZOLE 40 MG TABLET PO SCH (08:05)
[2016-12-21] MEDS ORDERED: HYDROcodone/APAP 5-325MG 1 EACH TAB PO PRN (08:53)
[2016-12-21] MEDS ORDERED: amLODIPine 5 MG TAB PO SCH (09:00)
[2016-12-21] MEDS ORDERED: CLOPIDOGREL 75 MG TAB PO SCH (09:00)
[2016-12-21] MEDS ORDERED: DOCUSATE 100 MG CAP PO SCH (09:00)
[2016-12-21] MEDS ORDERED: OXYBUTYNIN 10 MG TAB.ER.24 PO SCH (09:00)
[2016-12-21] MEDS ORDERED: DIAZEPAM 5 MG TAB PO SCH (09:00)
[2016-12-21] MEDS ORDERED: ATORVASTATIN 10 MG TAB PO SCH (09:00)
--- NOTE | 2016-12-21 10:21 | P.CONS ---
History of Present Illness - Reason for Consult Consult date: 12/21/16 IBS constipation Requesting physician: Munir Beltran - History of Present Illness 66-year-old female patient Dr. Beltran with past medical history of IBS-D, uterine fibroids, CVA TIA, GERD, diverticulosis, hyperlipidemia, anxiety, hypertension, and osteoarthritis. Admitted with abdominal pain nausea vomiting and hyponatremia. Sodium 128. Consultation requested for constipation. She underwent EGD colonoscopy with Dr. Lew less than a year ago with no evidence of obstruction. She has a history of IBS-D but now over the past 6 months more constipated. She has been taking [place] occasionally for osteoarthritis. She is having a bowel movement every 3-4 days. She has tried multiple over-the- counter laxatives including Dulcolax, MiraLAX without improvement. MiraLAX tends to make the patient feels more bloated and gassy. CT abdomen and pelvis reported findings consistent with constipation as well as colonic diverticulosis and uterine fibroid. Current laboratory studies sodium 139. White count 8.6. Hemoglobin 12.7. Review of Systems Constitutional: Denies fever, chills, sweats, weight gain, or loss. HEENT: Negative for migraines, blurred vision or loss, earaches, drainage, tinnitus, oral mucosal lesions, dysphagia, or odynophagia. CARDIAC: Hypertension. Hyperlipidemia. Negative for chest pain, arrhythmias, or palpitation. RESPIRATORY: Negative for shortness of breath, hemoptysis, cough, or sputum production. GI: See HPI for pertinent findings. : Negative for hematuria, urgency, frequency, polyuria, or dysuria. GYNc: Uterine fibroids. MUSCULOSKELETAL: Negative for muscle aches, swelling, arthritis, and arthralgias. NEUROLOGIC: History of CVA.. ENDOCRINE: Negative for thyroid problems. SKIN: Negative for rash or itching. PSYCHIATRIC: Anxiety All systems: negative (See HPI) Past Medical History Past Medical History: CVA/TIA, GERD/Reflux, Hyperlipidemia, Hypertension, Osteoarthritis (OA) Additional Past Medical History / Comment(s): IBS, overactive bladder; vertigo, steroids recently prescribed, diverticulosis, uterine fibroids History of Any Multi-Drug Resistant Organisms: None Reported Past Surgical History: Breast Surgery Past Anesthesia/Blood Transfusion Reactions: No Reported Reaction Past Psychological History: Anxiety Smoking Status: Former smoker Past Alcohol Use History: None Reported Additional Past Alcohol Use History / Comment(s): started smoking age [age] years old quit 30 years ago 2 ppd Past Drug Use History: None Reported - Past Family History Father Family Medical History: Myocardial Infarction (MT) Mother Family Medical History: Congestive Heart Failure (CHF) Medications and Allergies Home Medications Medication Instructions Recorded Confirmed Type Calcium Carbonate/Vitamin D3 2 tab PO DAILY 08/20/15 12/17/16 History [Calcium 600 + Vit D Tablet] Clopidogrel [Plavix] 75 mg PO DAILY 08/20/15 12/17/16 History Diazepam [Valium] 10 mg PO BID 08/20/15 12/17/16 History Fluocinolone Acetonide Oil 2 drop BOTH EARS BID PRN 08/20/15 12/17/16 History [Fluocinolone Acetonide Oil (Otic)] HYDROcodone/APAP 5-325MG [[place] 5] 1 tab PO BID PRN 08/20/15 12/17/16 History Ibuprofen [Advil] 200 mg PO Q6HR PRN 08/20/15 12/17/16 History Loperamide [Imodium] 2 mg PO QID PRN 08/20/15 12/17/16 History amLODIPine [Norvasc] 5 mg PO BID 08/20/15 12/17/16 History L.acidoph,Paracasei, B.lactis 1 cap PO DAILY 08/21/15 12/17/16 History [Probiotic] Meclizine [Antivert] 25 - 50 mg PO DAILY PRN 08/21/15 12/17/16 History Oxybutynin Chloride [Oxybutynin 10 mg PO DAILY 08/21/15 12/17/16 History Chloride ER] diphenhydrAMINE [Benadryl] 25 mg PO TID PRN 08/21/15 12/17/16 History Calcium Carbonate [Tums] 500 - 1,000 mg PO TID PRN 06/12/16 12/17/16 History Loratadine [Claritin] 10 mg PO DAILY PRN 06/12/16 12/17/16 History Naphazoline HCl/Glycerin [Clear 1 - 2 drops BOTH EYES DAILY PRN 06/12/16 History Eyes Max Redness Rlf Drp] Acetaminophen [Tylenol Arthritis] 650 mg PO Q4-6H PRN 12/17/16 12/17/16 History Aspirin/Acetaminophen/Caffeine 1 - 2 tab PO BID PRN 12/17/16 12/17/16 History [Excedrin Migraine Caplet] Atorvastatin Calcium [Lipitor] 10 mg PO DAILY 12/17/16 12/17/16 History Bisacodyl [Dulcolax] 10 mg RECTAL DAILY PRN 12/17/16 12/17/16 History Docusate [Colace] 100 mg PO BID 12/17/16 12/17/16 History Fexofenadine HCl [Charo Allergy] 90 mg PO DAILY 12/17/16 12/17/16 History Naproxen Sodium [Aleve] 220 mg PO Q12H PRN 12/17/16 12/17/16 History Phenyleph/Pramoxin/Glycr/W.pet 1 applic RECTAL DAILY PRN 12/17/16 12/17/16 History [Preparation H Cream] Phenylephrine HCl/[place] Butter 1 supp RECTAL DAILY PRN 12/17/16 12/17/16 History [Preparation H Suppository] Ranitidine HCl [Zantac] 75 mg PO AC-BID PRN 12/17/16 12/17/16 History Simethicone [Gas-X] 125 mg PO DAILY PRN 12/17/16 12/17/16 History Spironolactone [Aldactone] 25 mg PO BID 12/17/16 12/17/16 History Triamcinolone Acetonide [Nasacort] 1 - 2 spray EA NOSTRIL DAILY PRN 12/17/1604/27 History Wheat Dextrin [Benefiber] 1 packet PO TID 12/17/16 12/17/16 History Allergies Allergy/AdvReac Type Severity Reaction Status Date / Time cefuroxime axetil Allergy Unknown Verified 12/17/16 08:27 [From Ceftin] dicyclomine [From Bentyl] Allergy Unknown Verified 12/17/16 08:27 hyoscyamine [From Levbid] Allergy Unknown Verified 12/17/16 08:27 levofloxacin [From Levaquin] Allergy Unknown Verified 12/17/16 08:27 tramadol Allergy Unknown Verified 12/17/16 08:27 Physical Exam Vitals: Vital Signs Temp Pulse Resp BP Pulse Ox 12/21/16 08:00 18 12/21/16 07:00 98.4 F 78 18 142/87 97 12/20/16 21:39 83 16 144/81 97 12/20/16 15:00 97.0 F L 83 16 118/65 97 Intake and Output 12/20/16 12/21/16 12/21/16 22:59 06:59 14:59 Intake Total 400 300 200 Balance 400 300 200 Intake: Oral 400 300 200 Other: Voiding Method Toilet Toilet # Voids 1 General appearance: The patient is alert, oriented, in no acute distress. HET: Head is normocephalic and atraumatic. Pupils are equal and reactive. Oropharynx is clear without lesions. Neck: Supple without lymphadenopathy. Trachea midline. Heart: S1 S2. Regular rate and rhythm. Lungs: No crackles or wheezes are heard. Abdomen: Soft, nontender, nondistended with bowel sounds. No peritoneal signs. No palpable organomegaly or masses. Extremities: Normal skin color and turgor. No cyanosis, rash, ulceration, clubbing, or edema. Radial and pedal pulses are 2/4 bilaterally. Neurological: No focal deficits. Strength and sensation are grossly intact. Results CBC & Chem 7: 12/18/16 09:51 12/20/16 11:33 Assessment and Plan (1) IBS (irritable bowel syndrome) Narrative/Plan: 66-year-old female admitted with intractable nausea vomiting abdominal pain with hypovolemia hyponatremia with underlying history of IBS-D Tali reporting constipation over the last 6 months status post EGD colonoscopy less than a year ago without evidence of obstruction with underlying history diverticulosis. Status: Acute Plan: 1. Senokot-S 1-2 tablets 1-2 times daily; titrate for bowel movement every 1-2 days. 2. MiraLAX 17 g daily as needed. 3. Return to GI office in 2 weeks for reevaluation. 4. Discharge per medicine. Thank you for this kind referral and the opportunity to participate in the care of your patient. This consultation was discussed with Dr. Rueda. The impression and plan of care have been directed as dictated.
[2016-12-21] MEDS ORDERED: SENNOSIDES-DOCUSATE SODIUM 1 EACH TAB PO STA (10:23)
--- NOTE | 2016-12-21 16:17 | PN ---
Patient is seen for follow-up for hyponatremia. Her sodium is now up to 139. Patient denies the use of any thiazide diuretics. She is currently comfortable with no significant complaints. She is actually being discharged today. Urine osmolality and urine sodium was not performed. On examination, blood pressure is 142/87, heart rate 78 per minute. The patient is afebrile. She appears euvolemic with no evidence of edema bilateral lower extremities. Labs show sodium 139 from yesterday. ASSESSMENT: Hyponatremia possibly hypovolemic, currently improved status post IV fluids. Okay to resume Aldactone as outpatient. Patient is advised to maintain good protein intake and repeat labs as outpatient.
[2016-12-21] MEDS ORDERED: POLYETHYLENE GLYCOL 3350 17 GM POWD.PACK PO SCH (21:00)
[2016-12-24 14:42] LABS: Mis test requested (Blood) OVA #1
--- NOTE | 2017-01-13 09:12 | DS ---
DATE OF ADMISSION: 12/19/2016 DATE OF DISCHARGE: 12/21/2016 DISCHARGE DIAGNOSES: 1. Abdominal pain, nausea and vomiting. 2. Dehydration. 3. Hyponatremia due to hypovolemia. 4. Diverticulosis of the colon. 5. Past history of cerebrovascular accident and transient ischemic attacks. 6. Hypertensive cardiovascular disease. 7. Hyperlipidemia. 8. Chronic obstructive pulmonary disease. 9. Fibroid uterus. This is a 66-year-old white female who was having abdominal pain, nausea and vomiting and patient came to the emergency room with complaints of constipation for 2 to 3 days. Patient also had nausea and vomiting, abdominal pain and in the emergency room, her CT scan showed evidence of diverticulosis without diverticulitis. There was also a mass near the uterus which was considered fibroid uterus and CBC was unremarkable. WBC count of 6.7, hemoglobin 13.6 and BUN 12, creatinine 1 and blood sugar was 100. Because of persistent pain the patient was admitted to the hospital for further evaluation and treatment. For details of the physical examination at the time of admission, please refer to the history and physical. HOSPITAL COURSE: Patient was given IV fluids to correct the dehydration and electrolyte imbalance. CT scan showed evidence of diverticulosis, but there was no diverticulitis. The patient was seen by Dr. Lew in consultation and he felt that there is no clinical evidence requiring any surgical intervention. The patient also was seen by Dr. Hernandez in consultation because a possible mass in the pelvis and she felt that mass affect in the CT scan was due to fibroid of the uterus. The patient was known to have that even prior to this admission. The patient was also seen by [facility] [employer] in consultation. The patient has a history of irritable bowel syndrome and patient has been seeing Dr. Edwin Rueda. So Dr. Rueda was consulted and she also felt the patient has irritable bowel syndrome and she arranged for follow-up with her as outpatient in her office. As the patient's overall symptoms have improved and her condition stabilized, she was discharged home on 12/21/2016 and she was advised to continue on her previous home medications including Plavix and Valium and stool softeners and she also advised to take Imodium p.r.n. for diarrhea and we will continue her previous home medications and she will be seen in my office for follow-up in a week's time.
== END 2016-12-21 12:15 | disposition home or self-care (01) | DRG 392 ==
LOC: EC 22:54 → 4MS4W 12-17 03:30 → OBSVTOIN 12-19 15:50
PROVIDERS: ADMIT Internal Medicine; ATTEND Internal Medicine
DX: K58.9 Irritable bowel syndrome, unspecified (principal); E87.1 Hypo-osmolality and hyponatremia; I11.9 Hypertensive heart disease without heart failure; J44.9 Chronic obstructive pulmonary disease, unspecified; D25.9 Leiomyoma of uterus, unspecified; E78.5 Hyperlipidemia, unspecified; E86.0 Dehydration; E86.1 Hypovolemia; K08.89 Other specified disorders of teeth and supporting structures; K21.9 Gastro-esophageal reflux disease without esophagitis; K57.30 Diverticulosis of large intestine without perforation or abscess without bleeding; K59.09 Other constipation; M19.90 Unspecified osteoarthritis, unspecified site; N32.81 Overactive bladder; F41.9 Anxiety disorder, unspecified; R11.2 Nausea with vomiting, unspecified; Z79.02 Long term (current) use of antithrombotics/antiplatelets; Z79.899 Other long term (current) drug therapy; Z88.5 Allergy status to narcotic agent; Z88.8 Allergy status to other drugs, medicaments and biological substances; Z87.891 Personal history of nicotine dependence; Z88.1 Allergy status to other antibiotic agents; Z82.49 Family history of ischemic heart disease and other diseases of the circulatory system
CPT/HCPCS: 36415; 71020; 74000; 74176; 76830; 76856; 80048; 80053; 81001; 81503; 82150; 82550; 82553; 83690; 83735; 84484; 85025; 96361; 96365; 96372; 96375; 96376; 99285

== ENCOUNTER → 2017-02-21 | Outpatient (CLI) | payer MEDICARE, BC ==
[2017-02-21 07:43] LABS: ALT 33 U/L (9-52); AST 9 U/L (14-36); Cholesterol 152 mg/dL (<200); Creatine Kinase 38 U/L (30-135); HDL Cholesterol 79 mg/dL (40-60); Triglycerides 103 mg/dL (<150)
== END | disposition home or self-care (01) ==
LOC: LABWHC1 06:58
PROVIDERS: ATTEND Internal Medicine
DX: E78.2 Mixed hyperlipidemia (principal)
CPT/HCPCS: 36415; 80061; 82550; 84450; 84460

== ENCOUNTER → 2017-03-21 | Outpatient (CLI) | payer MEDICARE, BC ==
--- NOTE | 2017-03-28 11:05 | MM ---
Reason for exam: screening (asymptomatic). Last mammogram was performed 1 year and 1 month ago. History: Patient is postmenopausal. 2 benign excisional biopsies of the left breast. Took estrogen for 11 years 9 months. Took progesterone for 11 years 9 months. Physical Findings: Nurse did not find any significant physical abnormalities on exam. MG 3D Screening Mammo W/Cad Bilateral CC and MLO view(s) were taken. Prior study comparison: February 15, 2016, bilateral MG 3d screening mammo w/cad. February 08, 2015, bilateral MG diagnostic mammo w CAD [facility]. The breast tissue is heterogeneously dense. This may lower the sensitivity of mammography. There is chronic nodularity bilaterally. There is no dominant lesion. No significant changes when compared with prior studies. ASSESSMENT: Benign, BI-RAD 2 RECOMMENDATION: Routine screening mammogram of both breasts in 1 year.
== END ==
LOC: RADMAMWWP 13:43
PROVIDERS: ATTEND Internal Medicine
DX: Z12.31 Encounter for screening mammogram for malignant neoplasm of breast (principal)
CPT/HCPCS: 77063; G0202

== ENCOUNTER → 2017-06-05 | Outpatient (CLI) | payer MEDICARE, BC ==
[2017-06-05 09:38] LABS: CH 32.4; CHCM 36.2; HCT 41.4 % (34.0-46.0); HDW 3.21; HGB 14.6 gm/dL (11.4-16.0); MCH 31.7 pg (25.0-35.0); MCHC 35.2 g/dL (31.0-37.0); MCV 90.1 fL (80.0-100.0); Mean Platelet Volume 6.9; RBC 4.59 m/uL (3.80-5.40); RDW 13.7 % (11.5-15.5); WBC 5.9 k/uL (3.8-10.6)
[2017-06-05 10:35] LABS: ALT 30 U/L (9-52); AST 12 U/L (14-36); Alkaline Phosphatase 52 U/L (38-126); Anion Gap 11 mmol/L; Blood Urea Nitrogen 25 mg/dL (7-17); Calcium 9.8 mg/dL (8.4-10.2); Carbon Dioxide 26 mmol/L (22-30); Chloride 106 mmol/L (98-107); Glucose 82 mg/dL (74-99); Non-African American GFR(MDRD) 56 (>60 ml/min/1.73 sqM); Potassium 4.2 mmol/L (3.5-5.1); Sodium 143 mmol/L (137-145); Total Bilirubin 0.6 mg/dL (0.2-1.3); Total Protein 6.8 g/dL (6.3-8.2)
== END | disposition home or self-care (01) ==
LOC: LABWHC1 08:59
PROVIDERS: ATTEND Internal Medicine
DX: I11.9 Hypertensive heart disease without heart failure (principal); E78.2 Mixed hyperlipidemia; G45.9 Transient cerebral ischemic attack, unspecified
CPT/HCPCS: 36415; 80053; 84439; 84443; 85027

== ENCOUNTER → 2017-06-25 | Outpatient (CLI) | payer MEDICARE, BC ==
--- NOTE | 2017-06-25 15:53 | US ---
EXAMINATION TYPE: US carotid duplex BILAT DATE OF EXAM: 06/25/2017 COMPARISON: US CLINICAL HISTORY: R09.89 CAROTID BRUIT,G45.9 TIA. Bruit, TIA EXAM MEASUREMENTS: RIGHT: Peak Systolic Velocity (PSV) cm/sec ----- Right CCA: 85.3 ----- Right ICA: 79.8 ----- Right ECA: 93.0 ICA/CCA ratio: 0.9 RIGHT: End Diastole cm/sec ----- Right CCA: 20.4 ----- Right ICA: 22.6 ----- Right ECA: 18.2 LEFT: Peak Systolic Velocity (PSV) cm/sec ----- Left CCA: 98.5 ----- Left ICA: 70.1 ----- Left ECA: 70.1 ICA/CCA ratio: 0.7 LEFT: End Diastole cm/sec ----- Left CCA: 23.8 ----- Left ICA: 21.7 ----- Left ECA: 10.7 VERTEBRALS (direction of flow): Right Vertebral: Antegrade Left Vertebral: Antegrade No elevated velocities, no significant stenosis. IMPRESSION: No hemodynamically significant stenosis appreciated. Criteria for Assigning % of Stenosis / Diameter reduction (Estimation based on the indirect measurements of the internal carotid artery velocities (ICA PSV). 1. Normal (no stenosis)=ICA PSV < 125 cm/s: ratio < 2.0: ICA EDV<40 cm/s. 2. Less than 50% stenosis=ICA PSV < 125 cm/s: ratio < 2.0: ICA EDV<40 cm/s. 3. 50 to 69% stenosis=ICA PSV of 125 to 230 cm/s: ration 2.0 ? 4.0: ICA EDV 40-100 cm/s. 4. Greater than 70% stenosis to near occlusion= ICA PSV > 230 cm/s: ratio > 4.0: ICA EDV > 100 cm/s. 5. Near occlusion= ICA PSV velocities may be low or undetectable: variable ratio and ICA EDV. 6. Total occlusion=unable to detect flow.
== END | disposition home or self-care (01) ==
LOC: RADUSWWP 15:20
PROVIDERS: ATTEND Internal Medicine
DX: R09.89 Other specified symptoms and signs involving the circulatory and respiratory systems (principal); G45.9 Transient cerebral ischemic attack, unspecified
CPT/HCPCS: 93880

== ENCOUNTER 2018-05-24 21:54 | Emergency (ER) | payer MEDICARE, BC ==
[2018-05-24] MEDS ORDERED: MAG HYDROX/AL HYDROX/SIMETH 30 ML, HYOSCYAMINE ELIXIR 10 ML, CIMETIDINE HCL 300 MG, LID... PO STA ×4 (23:04)
[2018-05-24] MEDS ORDERED: SODIUM CHLORIDE 0.9% 500 ML IV STA (23:05)
--- NOTE | 2018-05-24 23:06 | ED ---
General Adult HPI - General Chief complaint: Recheck/Abnormal Lab/Rx Stated complaint: Cough Time Seen by Provider: 05/24/18 22:47 Source: patient Mode of arrival: ambulatory Limitations: no limitations - History of Present Illness Initial comments: This patient is a 67-year-old woman who presents with a constellation of symptoms that include nasal congestion and drainage, cough with occasional sputum, abdominal discomfort and nausea as well as epigastric pain. The patient states that her symptoms started approximately a month ago with a cough and some sputum. She was seen by the solar sales ambassador in preparation for a stress test and she was given course prednisone and antibiotic, and followed with an ear nose and throat doctor. She saw Dr. Caraballo who gave her another course of steroid and an antibiotic that she states she is having a difficult time taking because it gives a metallic taste when she has not had enough appetite take it with food. The patient states that she believes due to the sputum that she has been swallowing she has had some generalized abdominal and epigastric pain, dull or crampy in nature, constant, and at times there is some nausea. The patient does not believe that she has had much relief from the medications. Onset/Timin -: month(s) Location: chest, abdomen Radiation: non-radiation Quality: dull Consistency: constant Improves with: none Worsens with: none Associated Symptoms: cough Treatments Prior to Arrival: other (Patient has had 2 courses of steroids and course of antibiotics as well) - Related Data Home Medications Medication Instructions Recorded Confirmed Calcium Carbonate/Vitamin D3 2 tab PO DAILY 08/20/15 12/17/16 [Calcium 600 + Vit D Tablet] Clopidogrel [Plavix] 75 mg PO DAILY 08/20/15 12/17/16 Diazepam [Valium] 10 mg PO BID 08/20/15 12/17/16 Fluocinolone Acetonide Oil 2 drop BOTH EARS BID PRN 08/20/15 12/17/16 [Fluocinolone Acetonide Oil (Otic)] HYDROcodone/APAP 5-325MG [[place] 5] 1 tab PO BID PRN 08/20/15 12/17/16 Ibuprofen [Advil] 200 mg PO Q6HR PRN 08/20/15 12/17/16 Loperamide [Imodium] 2 mg PO QID PRN 08/20/15 12/17/16 amLODIPine [Norvasc] 5 mg PO BID 08/20/15 12/17/16 L.acidoph,Paracasei, B.lactis 1 cap PO DAILY 08/21/15 12/17/16 [Probiotic] Meclizine [Antivert] 25 - 50 mg PO DAILY PRN 08/21/15 12/17/16 Oxybutynin Chloride [Oxybutynin 10 mg PO DAILY 08/21/15 12/17/16 Chloride ER] diphenhydrAMINE [Benadryl] 25 mg PO TID PRN 08/21/15 12/17/16 Calcium Carbonate [Tums] 500 - 1,000 mg PO TID PRN 06/12/16 12/17/16 Loratadine [Claritin] 10 mg PO DAILY PRN 06/12/16 12/17/16 Naphazoline HCl/Glycerin [Clear 1 - 2 drops BOTH EYES DAILY PRN 06/12/16 Eyes Max Redness Rlf Drp] Acetaminophen [Tylenol Arthritis] 650 mg PO Q4-6H PRN 12/17/16 12/17/16 Aspirin/Acetaminophen/Caffeine 1 - 2 tab PO BID PRN 12/17/16 12/17/16 [Excedrin Migraine Caplet] Atorvastatin Calcium [Lipitor] 10 mg PO DAILY 12/17/16 12/17/16 Bisacodyl [Dulcolax] 10 mg RECTAL DAILY PRN 12/17/16 12/17/16 Docusate [Colace] 100 mg PO BID 12/17/16 12/17/16 Fexofenadine HCl [[place] Allergy] 90 mg PO DAILY 12/17/16 12/17/16 Naproxen Sodium [Aleve] 220 mg PO Q12H PRN 12/17/16 12/17/16 Phenyleph/Pramoxin/Glycr/W.pet 1 applic RECTAL DAILY PRN 12/17/16 12/17/16 [Preparation H Cream] Phenylephrine HCl/[place] Butter 1 supp RECTAL DAILY PRN 12/17/16 12/17/16 [Preparation H Suppository] Ranitidine HCl [Zantac] 75 mg PO AC-BID PRN 12/17/16 12/17/16 Simethicone [Gas-X] 125 mg PO DAILY PRN 12/17/16 12/17/16 Spironolactone [Aldactone] 25 mg PO BID 12/17/16 12/17/16 Triamcinolone Acetonide [Nasacort] 1 - 2 spray EA NOSTRIL DAILY PRN 12/17/1604/27 Wheat Dextrin [Benefiber] 1 packet PO TID 12/17/16 12/17/16 Previous Rx's Medication Instructions Recorded Sennosides-Docusate Sodium 2 tab PO DAILY #60 tablet 12/21/16 [Senokot-S] Benzonatate [Tessalon Perles] 100 mg PO TID PRN #15 capsule 05/25/18 Ondansetron Odt [Zofran ODT] 4 mg PO Q8HR PRN #10 tab 05/25/18 Allergies Allergy/AdvReac Type Severity Reaction Status Date / Time cefuroxime axetil Allergy Unknown Verified 05/24/18 22:11 [From Ceftin] dicyclomine [From Bentyl] Allergy Unknown Verified 05/24/18 22:11 hyoscyamine [From Levbid] Allergy Unknown Verified 05/24/18 22:11 levofloxacin [From Levaquin] Allergy Unknown Verified 05/24/18 22:11 tramadol Allergy Unknown Verified 05/24/18 22:11 Review of Systems ROS Statement: Those systems with pertinent positive or pertinent negative responses have been documented in the HPI. ROS Other: All systems not noted in ROS Statement are negative. Constitutional: Denies: fever, chills, weakness ENT: Reports: congestion. Denies: ear pain, throat pain Respiratory: Reports: cough. Denies: dyspnea, wheezes, hemoptysis Cardiovascular: Reports: palpitations. Denies: dyspnea on exertion, orthopnea, edema, syncope Gastrointestinal: Reports: abdominal pain, nausea. Denies: vomiting, diarrhea, constipation, melena, hematochezia Genitourinary: Denies: dysuria, hematuria Musculoskeletal: Denies: back pain Skin: Denies: rash Neurological: Denies: headache, weakness, numbness, paresthesias Psychiatric: Reports: anxiety Past Medical History Past Medical History: CVA/TIA, GERD/Reflux, Hyperlipidemia, Hypertension, Osteoarthritis (OA) Additional Past Medical History / Comment(s): IBS, overactive bladder; vertigo, steroids recently prescribed, diverticulosis, uterine fibroids, [place] History of Any Multi-Drug Resistant Organisms: None Reported Past Surgical History: Breast Surgery Past Anesthesia/Blood Transfusion Reactions: No Reported Reaction Past Psychological History: Anxiety Smoking Status: Former smoker Past Alcohol Use History: None Reported Past Drug Use History: None Reported - Past Family History Father Family Medical History: Myocardial Infarction ([place]) Mother Family Medical History: Congestive Heart Failure (CHF) General Exam Limitations: no limitations General appearance: alert, in no apparent distress, anxious Head exam: Present: atraumatic, normocephalic Eye exam: Present: normal appearance. Absent: scleral icterus, conjunctival injection ENT exam: Present: mucous membranes dry Neck exam: Present: normal inspection Respiratory exam: Present: normal lung sounds bilaterally. Absent: respiratory distress, wheezes, rales, rhonchi, stridor Cardiovascular Exam: Present: tachycardia (Heart rate approximately 108 at my exam), normal heart sounds. Absent: systolic murmur, diastolic murmur, rubs, gallop GI/Abdominal exam: Present: soft. Absent: distended, tenderness, guarding, rebound, rigid, mass Extremities exam: Present: normal inspection, normal capillary refill. Absent: pedal edema, calf tenderness Back exam: Present: normal inspection. Absent: CVA tenderness (R), CVA tenderness (L) Neurological exam: Present: alert Skin exam: Present: warm, dry, intact, normal color. Absent: rash Course Vital Signs 05/24/18 05/24/18 05/24/18 22:08 22:36 22:54 Temperature 98.6 F Pulse Rate 118 H 103 H 107 H Respiratory 20 20 18 Rate Blood Pressure 157/78 156/72 O2 Sat by Pulse 98 98 99 Oximetry 05/25/18 05/25/18 05/25/18 01:11 02:37 03:38 Temperature Pulse Rate 72 98 100 Respiratory 16 20 16 Rate Blood Pressure 150/70 156/71 167/66 O2 Sat by Pulse 97 99 Oximetry EKG Findings - EKG Results: EKG: interpreted by ERMD, sinus rhythm, normal axis, normal QRS, normal ST/T EKG shows: tachycardia (Rate approximately 111 bpm) Medical Decision Making - Medical Decision Making Case is discussed with Dr. Ivy, covering tonight for Dr. Beltran who is familiar with patient. Will see the patient first thing in clinic tomorrow morning, for follow-up. Discussed appropriate further care and follow-up as well as return parameters. - Lab Data Result diagrams: 05/24/18 22:25 05/24/18 22:25 Lab Results 05/24/18 05/24/18 05/24/18 Range/Units 22:25 22:25 22:25 WBC 15.8 H (3.8-10.6) k/uL RBC 4.80 (3.80-5.40) m/uL Hgb 15.0 (11.4-16.0) gm/dL Hct 41.8 (34.0-46.0) % MCV 87.1 (80.0-100.0) fL MCH 31.3 (25.0-35.0) pg MCHC 35.9 (31.0-37.0) g/dL RDW 12.3 (11.5-15.5) % Plt Count 315 (150-450) k/uL Neutrophils % 79 % Lymphocytes % 12 % Monocytes % 7 % Eosinophils % 0 % Basophils % 0 % Neutrophils # 12.5 H (1.3-7.7) k/uL Lymphocytes # 1.9 (1.0-4.8) k/uL Monocytes # 1.1 H (0-1.0) k/uL Eosinophils # 0.0 (0-0.7) k/uL Basophils # 0.0 (0-0.2) k/uL Hyperchromasia Slight Sodium 129 L (137-145) mmol/L Potassium 4.4 (3.5-5.1) mmol/L Chloride 93 L (98-107) mmol/L Carbon Dioxide 21 L (22-30) mmol/L Anion Gap 15 mmol/L BUN 21 H (7-17) mg/dL Creatinine 0.90 (0.52-1.04) mg/dL Est GFR (CKD-EPI)AfAm 76 (>60 ml/min/1.73 sqM) Est GFR (CKD-EPI)NonAf 66 (>60 ml/min/1.73 sqM) Glucose 116 H (74-99) mg/dL Calcium 10.1 (8.4-10.2) mg/dL Total Bilirubin 0.5 (0.2-1.3) mg/dL AST 13 L (14-36) U/L ALT 37 (9-52) U/L Alkaline Phosphatase 72 (38-126) U/L Troponin I <0.012 (0.000-0.034) ng/mL Total Protein 7.3 (6.3-8.2) g/dL Albumin 4.8 (3.5-5.0) g/dL Amylase 63 (30-110) U/L Lipase 192 (23-300) U/L Urine Color Urine Appearance (Clear) Urine pH (5.0-8.0) Ur Specific [place] (1.001-1.035) Urine Protein (Negative) Urine Glucose (UA) (Negative) Urine Ketones (Negative) Urine Blood (Negative) Urine Nitrite (Negative) Urine Bilirubin (Negative) Urine Urobilinogen (<2.0) mg/dL Ur Leukocyte Esterase (Negative) Group A Strep Rapid (Negative) 05/24/18 05/25/18 Range/Units 23:45 00:35 WBC (3.8-10.6) k/uL RBC (3.80-5.40) m/uL Hgb (11.4-16.0) gm/dL Hct (34.0-46.0) % MCV (80.0-100.0) fL MCH (25.0-35.0) pg MCHC (31.0-37.0) g/dL RDW (11.5-15.5) % Plt Count (150-450) k/uL Neutrophils % % Lymphocytes % % Monocytes % % Eosinophils % % Basophils % % Neutrophils # (1.3-7.7) k/uL Lymphocytes # (1.0-4.8) k/uL Monocytes # (0-1.0) k/uL Eosinophils # (0-0.7) k/uL Basophils # (0-0.2) k/uL Hyperchromasia Sodium (137-145) mmol/L Potassium (3.5-5.1) mmol/L Chloride (98-107) mmol/L Carbon Dioxide (22-30) mmol/L Anion Gap mmol/L BUN (7-17) mg/dL Creatinine (0.52-1.04) mg/dL Est GFR (CKD-EPI)AfAm (>60 ml/min/1.73 sqM) Est GFR (CKD-EPI)NonAf (>60 ml/min/1.73 sqM) Glucose (74-99) mg/dL Calcium (8.4-10.2) mg/dL Total Bilirubin (0.2-1.3) mg/dL AST (14-36) U/L ALT (9-52) U/L Alkaline Phosphatase (38-126) U/L Troponin I (0.000-0.034) ng/mL Total Protein (6.3-8.2) g/dL Albumin (3.5-5.0) g/dL Amylase (30-110) U/L Lipase (23-300) U/L Urine Color Light Yellow Urine Appearance Clear (Clear) Urine pH 6.5 (5.0-8.0) Ur Specific [place] 1.007 (1.001-1.035) Urine Protein Negative (Negative) Urine Glucose (UA) Negative (Negative) Urine Ketones Negative (Negative) Urine Blood Negative (Negative) Urine Nitrite Negative (Negative) Urine Bilirubin Negative (Negative) Urine Urobilinogen <2.0 (<2.0) mg/dL Ur Leukocyte Esterase Negative (Negative) Group A Strep Rapid Negative (Negative) Disposition Clinical Impression: Abdominal pain, Hyponatremia Disposition: HOME SELF-CARE Condition: Fair Instructions: Hyponatremia (ED), Abdominal Pain (ED) Prescriptions: Benzonatate [Tessalon Perles] 100 mg PO TID PRN #15 capsule PRN Reason: Cough Ondansetron Odt [Zofran ODT] 4 mg PO Q8HR PRN #10 tab PRN Reason: Nausea Is patient prescribed a controlled substance at d/c from ED?: No Referrals: Munir Beltran MD [Primary Care Provider] - 1-2 days
[2018-05-24 23:26] LABS: Basophils % (A) 0 %; Eosinophils % (A) 0 %; HCT 41.8 % (34.0-46.0); Hyperchromasia Slight; Lymphocytes # (A) 1.9 k/uL (1.0-4.8); Lymphocytes % (A) 12 %; MCH 31.3 pg (25.0-35.0); MCHC 35.9 g/dL (31.0-37.0); MCV 87.1 fL (80.0-100.0); Mean Platelet Volume 6.1; Monocytes # (A) 1.1 k/uL (0-1.0); Monocytes % (A) 7 %; Neutrophils # (A) 12.5 k/uL (1.3-7.7); Neutrophils % (A) 79 %; Platelet Count 315 k/uL (150-450); RDW 12.3 % (11.5-15.5); WBC 15.8 k/uL (3.8-10.6)
[2018-05-24 23:35] LABS: Albumin 4.8 g/dL (3.5-5.0); Calcium 10.1 mg/dL (8.4-10.2); Potassium 4.4 mmol/L (3.5-5.1); Total Bilirubin 0.5 mg/dL (0.2-1.3); Total Protein 7.3 g/dL (6.3-8.2)
--- NOTE | 2018-05-24 23:59 | XR ---
EXAMINATION TYPE: XR abdomen acute w cxr DATE OF EXAM: 05/24/2018 COMPARISON: 03/31/2018 HISTORY: Cough TECHNIQUE: Chest x-ray with supine and upright abdomen FINDINGS: There is no heart failure nor confluent pneumonic infiltrate. Heart size is normal. Costophrenic angl es are clear. There are chest leads. Bowel gas pattern is normal. There is no sign of intestinal obstruction or pneumoperitoneum. Fecal pa ttern is normal. There is no evidence of a mass. There are no pathologic calcifications over the kidn eys. IMPRESSION: Nonacute abdomen. No active cardiopulmonary disease. Chest is stable compared to old exam.
[2018-05-25] MEDS ORDERED: MORPHINE SULFATE 4 MG/ML SYRINGE IV STA ×2 (00:35→01:41)
[2018-05-25 00:59] LABS: Appearance,Urine Clear (Clear); Bilirubin,Urine Negative (Negative); Blood,Urine Negative (Negative); Color,Urine Light Yellow; Glucose,Urine (UA) Negative (Negative); Ketones,Urine Negative (Negative); Leukocyte Esterase,Urine Negative (Negative); Nitrite,Urine Negative (Negative); PH, Urine 6.5 (5.0-8.0); Protein,Urine Negative (Negative); Specific Gravity,Urine 1.007 (1.001-1.035); Urobilinogen,Urine <2.0 mg/dL (<2.0)
[2018-05-25] MEDS ORDERED: ONDANSETRON 4 MG/2 ML VIAL IVP STA (03:38)
--- NOTE | 2018-05-25 03:42 | CT ---
EXAMINATION TYPE: CT abdomen pelvis wo con DATE OF EXAM: 05/25/2018 COMPARISON: 12/17/2016 HISTORY: abd pain CT DLP: 292.90 mGycm Automated exposure control for dose reduction was used. TECHNIQUE: Helical acquisition of images was performed from the lung bases through the pelvis. FINDINGS: Lung bases are clear. There is no pleural effusion. Heart size is normal. There is no pericardial eff usion. There is small hiatal hernia. Liver spleen pancreas appear normal. Bile ducts are not dilated. There is no adrenal mass. Kidneys have normal size and contour. There is umbilical hernia that contai ns fat. Ureters are not dilated. Bladder distends smoothly. Uterus is apparently retroverted. There i s 3 cm soft tissue density mass in the pelvis on the right side at could be exophytic uterine fibroid . There is no ascites. Appendix appears normal. I see no intestinal wall thickening. There are no dilated loops. Lumbar spine is intact. There is a d egenerative first-degree L4-5 spondylolisthesis. IMPRESSION: NO SIGN OF ACUTE ABDOMEN AND PELVIS. SMALL HIATAL HERNIA. SMALL UMBILICAL HERNIA. THERE IS MILD ENLAR GEMENT OF THE RENAL COLLECTING SYSTEMS ON OLD EXAM THAT IS NOT PRESENT ON CURRENT EXAM. PELVIC MASS C ONSISTENT WITH UTERINE FIBROID IS UNCHANGED. THERE IS SIGMOID DIVERTICULOSIS WITHOUT DIVERTICULITIS.
[2018-05-25] MEDS ORDERED: SODIUM CHLORIDE 0.9% 1,000 ML IV ONE (03:51)
[2018-05-25] MEDS ORDERED: ACET/COD 300 MG/30 MG STARTER PACK 6 TAB BTL PO STA (04:44)
[2018-05-25 05:07] VITALS: BP 152/62; PULSE 88; RESP 20; TEMP 98
== END 2018-05-25 05:10 | disposition home or self-care (01) ==
LOC: EC 21:54
DX: E87.1 Hypo-osmolality and hyponatremia (principal); R00.0 Tachycardia, unspecified; R05 Cough; R10.13 Epigastric pain; R10.84 Generalized abdominal pain; R07.9 Chest pain, unspecified; R09.81 Nasal congestion; J34.89 Other specified disorders of nose and nasal sinuses; E78.5 Hyperlipidemia, unspecified; I10 Essential (primary) hypertension; N32.81 Overactive bladder; H91.90 Unspecified hearing loss, unspecified ear; Z87.891 Personal history of nicotine dependence; Z79.02 Long term (current) use of antithrombotics/antiplatelets; Z79.899 Other long term (current) drug therapy; Z88.1 Allergy status to other antibiotic agents; Z88.5 Allergy status to narcotic agent; Z88.8 Allergy status to other drugs, medicaments and biological substances; Z86.73 Personal history of transient ischemic attack (TIA), and cerebral infarction without residual deficits; Z82.49 Family history of ischemic heart disease and other diseases of the circulatory system
CPT/HCPCS: 36415; 93005; 80053; 82150; 83690; 84484; 85025; 81003; 87081; 87430; 74022; 74176; 99284; 96374; 96375; 96376; 96361 ×4; J2270; J2405

== ENCOUNTER 2018-05-28 22:50 | Emergency (ER) | payer MEDICARE, BC ==
[2018-05-28 23:06] VITALS: RESP 18
--- NOTE | 2018-05-28 23:32 | XR ---
EXAMINATION TYPE: XR chest 2V DATE OF EXAM: 05/28/2018 COMPARISON: 03/31/2018 HISTORY: Cough TECHNIQUE: Frontal and lateral views of the chest are obtained. FINDINGS: There is no heart failure. There is a small nodular infiltrate along right lateral chest w all. This is in the anterior segment right upper lobe. The other lung garcia are clear. Heart size is norm al. Bony thorax is intact. There is no pleural effusion. IMPRESSION: New small infiltrate on the right side could relate to some pleural plaque. This is incr eased compared to last exam. This appears new compared to 12/17/2016 exam. Normal heart.
[2018-05-28] MEDS ORDERED: IPRATROPIUM-ALBUTEROL 3 ML NEB INHALATION STA (23:59)
--- NOTE | 2018-05-29 00:23 | ED ---
URI HPI - General Chief Complaint: Upper Respiratory Infection Stated Complaint: cough Time Seen by Provider: 05/28/18 23:42 Source: patient, RN notes reviewed Mode of arrival: ambulatory Limitations: no limitations - History of Present Illness Initial Comments: This is a 67-year-old female who presents to the emergency department with chief complaint of cough. Patient states that she has had a persistent, chronic cough for the past few months. She states that a couple of months ago she was treated with antibiotics and steroids and a symptom through resolved. She states that the symptoms then returned. She was evaluated here in the emergency department on Saturday and did follow up with Dr. Caraballo yesterday. She states that she was given prescriptions for Augmentin and Tessalon Perles. Patient denies any fevers or chills, chest pain or shortness of breath. She presents complaining of this persistent cough. - Related Data Home Medications Medication Instructions Recorded Confirmed Calcium Carbonate/Vitamin D3 2 tab PO DAILY 08/20/15 12/17/16 [Calcium 600 + Vit D Tablet] Clopidogrel [Plavix] 75 mg PO DAILY 08/20/15 12/17/16 Diazepam [Valium] 10 mg PO BID 08/20/15 12/17/16 Fluocinolone Acetonide Oil 2 drop BOTH EARS BID PRN 08/20/15 12/17/16 [Fluocinolone Acetonide Oil (Otic)] HYDROcodone/APAP 5-325MG [[place] 5] 1 tab PO BID PRN 08/20/15 12/17/16 Ibuprofen [Advil] 200 mg PO Q6HR PRN 08/20/15 12/17/16 Loperamide [Imodium] 2 mg PO QID PRN 08/20/15 12/17/16 amLODIPine [Norvasc] 5 mg PO BID 08/20/15 12/17/16 L.acidoph,Paracasei, B.lactis 1 cap PO DAILY 08/21/15 12/17/16 [Probiotic] Meclizine [Antivert] 25 - 50 mg PO DAILY PRN 08/21/15 12/17/16 Oxybutynin Chloride [Oxybutynin 10 mg PO DAILY 08/21/15 12/17/16 Chloride ER] diphenhydrAMINE [Benadryl] 25 mg PO TID PRN 08/21/15 12/17/16 Calcium Carbonate [Tums] 500 - 1,000 mg PO TID PRN 06/12/16 12/17/16 Loratadine [Claritin] 10 mg PO DAILY PRN 06/12/16 12/17/16 Naphazoline HCl/Glycerin [Clear 1 - 2 drops BOTH EYES DAILY PRN 06/12/16 Eyes Max Redness Rlf Drp] Acetaminophen [Tylenol Arthritis] 650 mg PO Q4-6H PRN 12/17/16 12/17/16 Aspirin/Acetaminophen/Caffeine 1 - 2 tab PO BID PRN 12/17/16 12/17/16 [Excedrin Migraine Caplet] Atorvastatin Calcium [Lipitor] 10 mg PO DAILY 12/17/16 12/17/16 Bisacodyl [Dulcolax] 10 mg RECTAL DAILY PRN 12/17/16 12/17/16 Docusate [Colace] 100 mg PO BID 12/17/16 12/17/16 Fexofenadine HCl [Charo Allergy] 90 mg PO DAILY 12/17/16 12/17/16 Naproxen Sodium [Aleve] 220 mg PO Q12H PRN 12/17/16 12/17/16 Phenyleph/Pramoxin/Glycr/W.pet 1 applic RECTAL DAILY PRN 12/17/16 12/17/16 [Preparation H Cream] Phenylephrine HCl/[place] Butter 1 supp RECTAL DAILY PRN 12/17/16 12/17/16 [Preparation H Suppository] Ranitidine HCl [Zantac] 75 mg PO AC-BID PRN 12/17/16 12/17/16 Simethicone [Gas-X] 125 mg PO DAILY PRN 12/17/16 12/17/16 Spironolactone [Aldactone] 25 mg PO BID 12/17/16 12/17/16 Triamcinolone Acetonide [Nasacort] 1 - 2 spray EA NOSTRIL DAILY PRN 12/17/1604/27 Wheat Dextrin [Benefiber] 1 packet PO TID 12/17/16 12/17/16 Previous Rx's Medication Instructions Recorded Sennosides-Docusate Sodium 2 tab PO DAILY #60 tablet 12/21/16 [Senokot-S] Benzonatate [Tessalon Perles] 100 mg PO TID PRN #15 capsule 05/25/18 Ondansetron Odt [Zofran ODT] 4 mg PO Q8HR PRN #10 tab 05/25/18 Albuterol Inhaler [Ventolin Hfa 1 - 2 puff INHALATION Q6HR PRN #1 05/29/18 Inhaler] inhaler Allergies Allergy/AdvReac Type Severity Reaction Status Date / Time cefuroxime axetil Allergy Unknown Verified 05/24/18 22:11 [From Ceftin] dicyclomine [From Bentyl] Allergy Unknown Verified 05/24/18 22:11 hyoscyamine [From Levbid] Allergy Unknown Verified 05/24/18 22:11 levofloxacin [From Levaquin] Allergy Unknown Verified 05/24/18 22:11 tramadol Allergy Unknown Verified 05/24/18 22:11 Review of Systems ROS Statement: Those systems with pertinent positive or pertinent negative responses have been documented in the HPI. ROS Other: All systems not noted in ROS Statement are negative. Past Medical History Past Medical History: CVA/TIA, GERD/Reflux, Hyperlipidemia, Hypertension, Osteoarthritis (OA) Additional Past Medical History / Comment(s): IBS, overactive bladder; vertigo, steroids recently prescribed, diverticulosis, uterine fibroids, [place] History of Any Multi-Drug Resistant Organisms: None Reported Past Surgical History: Breast Surgery Past Anesthesia/Blood Transfusion Reactions: No Reported Reaction Past Psychological History: Anxiety Smoking Status: Former smoker Past Alcohol Use History: None Reported Past Drug Use History: None Reported - Past Family History Father Family Medical History: Myocardial Infarction ([place]) Mother Family Medical History: Congestive Heart Failure (CHF) General Exam - General Exam Comments Initial Comments: General: Awake and alert, well-developed; in no apparent distress. Patient sitting comfortably on ED stretcher. Cough does sound productive. HEENT: Head atraumatic, normocephalic. Pupils are equal, round and reactive to light. Extraocular movements intact. Oropharynx moist without erythema or exudate. Neck: Supple. Normal ROM. Cardiovascular: Regular rate and rhythm. No murmurs, rubs or gallops. Chest symmetrical. Respiratory: Lungs clear to auscultation bilaterally. No wheezes, rales or rhonchi. Normal respiratory effort with no use of accessory muscles. Musculoskeletal: Normal ROM, no tenderness bilateral upper and lower extremities. Ambulating normally. Skin: [place], warm and dry without rashes or lesions. Neurological: Alert and oriented x3. CN II-XII grossly intact. Speech is fluent and answers are appropriate. No focal neuro deficits. Psychiatric: Normal mood and affect. No overt signs of depression or anxiety noted. Limitations: no limitations Course Vital Signs 05/28/18 23:03 Temperature 98.7 F Pulse Rate 104 H Respiratory 18 Rate Blood Pressure 155/68 O2 Sat by Pulse 99 Oximetry Medical Decision Making - Medical Decision Making This is a 67-year-old female who presents to the emergency department with chief complaint of cough. Patient reports a persistent cough for the last few months. She was started on Augmentin, Tessalon Perles and Mucinex yesterday by Dr. Caraballo. Patient reports no improvement in her symptoms. A chest x-ray was obtained which revealed a new small infiltrate on the right side. Patient in no respiratory distress. Lungs are clear to auscultation bilaterally. DuoNeb treatment was administered. Recommended continuing medications that were prescribed yesterday. Patient does have a follow-up appointment in the morning with her primary care physician. Vital signs are stable and she is noted chest pressure she will be discharged home at this time. All questions were answered. Medications were reviewed and patient is not on an ROSE inhibitor. Disposition Clinical Impression: Bronchitis Disposition: HOME SELF-CARE Condition: Good Instructions: Chronic Bronchitis (ED) Additional Instructions: Please take medications as prescribed. Please follow up with primary care provider within 1-2 days. Return to emergency department if symptoms should worsen or any concerns arise. Prescriptions: Albuterol Inhaler [Ventolin Hfa Inhaler] 1 - 2 puff INHALATION Q6HR PRN #1 inhaler PRN Reason: Wheezing Is patient prescribed a controlled substance at d/c from ED?: No Referrals: Munir Beltran MD [Primary Care Provider] - 1-2 days Time of Disposition: 00:26
[2018-05-29 00:44] VITALS: BP 166/74; PULSE 95; TEMP 97.8
== END 2018-05-29 00:44 | disposition home or self-care (01) ==
LOC: EC 22:50
DX: J40 Bronchitis, not specified as acute or chronic (principal); K21.9 Gastro-esophageal reflux disease without esophagitis; E78.5 Hyperlipidemia, unspecified; I10 Essential (primary) hypertension; F41.9 Anxiety disorder, unspecified; M19.90 Unspecified osteoarthritis, unspecified site; Z86.73 Personal history of transient ischemic attack (TIA), and cerebral infarction without residual deficits; K58.9 Irritable bowel syndrome, unspecified; Z87.42 Personal history of other diseases of the female genital tract; Z87.891 Personal history of nicotine dependence; Z79.02 Long term (current) use of antithrombotics/antiplatelets; Z79.899 Other long term (current) drug therapy; Z88.1 Allergy status to other antibiotic agents; Z88.5 Allergy status to narcotic agent; Z88.8 Allergy status to other drugs, medicaments and biological substances
CPT/HCPCS: 71046; 94640; 99283

== ENCOUNTER 2018-06-01 11:42 | Emergency (ER) | payer MEDICARE, BC ==
[2018-06-01 12:07] VITALS: RESP 18; TEMP 98.5
[2018-06-01] MEDS ORDERED: IPRATROPIUM-ALBUTEROL 3 ML NEB INHALATION STA (13:59)
[2018-06-01] MEDS ORDERED: SODIUM CHLORIDE 0.9% 500 ML IV STA (13:59)
[2018-06-01] MEDS ORDERED: methylPREDNISolone SOD SUCCI 125 MG/2 ML VIAL IV STA (13:59)
[2018-06-01 14:26] LABS: Basophils % (A) 0 %; Eosinophils # (A) 0.1 k/uL (0-0.7); Eosinophils % (A) 1 %; HCT 43.2 % (34.0-46.0); HGB 15.1 gm/dL (11.4-16.0); Lymphocytes # (A) 2.1 k/uL (1.0-4.8); Lymphocytes % (A) 11 %; MCV 88.4 fL (80.0-100.0); Monocytes # (A) 0.8 k/uL (0-1.0); Monocytes % (A) 5 %; Neutrophils # (A) 15.1 k/uL (1.3-7.7); Neutrophils % (A) 82 %; Platelet Count 354 k/uL (150-450); RBC 4.88 m/uL (3.80-5.40); RDW 12.7 % (11.5-15.5); WBC 18.4 k/uL (3.8-10.6)
--- NOTE | 2018-06-01 14:32 | XR ---
EXAMINATION TYPE: XR chest 2V DATE OF EXAM: 06/01/2018 COMPARISON: 05/28/2018 HISTORY: Chest pain. Cough. TECHNIQUE: Frontal and lateral views of the chest are obtained. FINDINGS: Heart and mediastinum are normal. Lungs are clear of infiltrate. There is spurring in the thoracic spine. Costophrenic angles are clear. IMPRESSION: No active cardiopulmonary disease. No change.
[2018-06-01 14:35] LABS: Calcium 10.2 mg/dL (8.4-10.2); Potassium 4.5 mmol/L (3.5-5.1)
--- NOTE | 2018-06-01 14:36 | ED ---
General Adult HPI - General Chief complaint: Upper Respiratory Infection Stated complaint: Cough Time Seen by Provider: 06/01/18 13:34 Source: patient Mode of arrival: wheelchair Limitations: no limitations - History of Present Illness Initial comments: Monica is a 7-year-old female with past medical history of chronic bronchitis who presents to the emergency department today for persistent cough. Patient reports approximately one year ago she was diagnosed with bronchitis, she has followed with ENT and dental scheduling coordinator, she was seen by her dental scheduling coordinator earlier in the week and was prescribed low-dose steroids, Augmentin, albuterol and was advised to use Flonase, Charo and Mucinex. The patient reports that she has been compliant with this medical regimen, however she has a persistent cough. Patient reports that she has episodes of coughing and that she is just starting to feel run down and exhausted. Patient reports that at this time she just feels like she can't tolerate having a cough anymore. She denies any fevers, chills, nausea, vomiting, chest pain, chest pressure, palpitations, shortness of breath. She denies any recent change in activity level. Patient states that intermittently over the past year she has episodes of coughing so severe that she has had to seedling puller because she didnt feel safe driving. - Related Data Home Medications Medication Instructions Recorded Confirmed Calcium Carbonate/Vitamin D3 2 tab PO DAILY 08/20/15 12/17/16 [Calcium 600 + Vit D Tablet] Clopidogrel [Plavix] 75 mg PO DAILY 08/20/15 12/17/16 Diazepam [Valium] 10 mg PO BID 08/20/15 12/17/16 Fluocinolone Acetonide Oil 2 drop BOTH EARS BID PRN 08/20/15 12/17/16 [Fluocinolone Acetonide Oil (Otic)] HYDROcodone/APAP 5-325MG [[place] 5] 1 tab PO BID PRN 08/20/15 12/17/16 Ibuprofen [Advil] 200 mg PO Q6HR PRN 08/20/15 12/17/16 Loperamide [Imodium] 2 mg PO QID PRN 08/20/15 12/17/16 amLODIPine [Norvasc] 5 mg PO BID 08/20/15 12/17/16 L.acidoph,Paracasei, B.lactis 1 cap PO DAILY 08/21/15 12/17/16 [Probiotic] Meclizine [Antivert] 25 - 50 mg PO DAILY PRN 08/21/15 12/17/16 Oxybutynin Chloride [Oxybutynin 10 mg PO DAILY 08/21/15 12/17/16 Chloride ER] diphenhydrAMINE [Benadryl] 25 mg PO TID PRN 08/21/15 12/17/16 Calcium Carbonate [Tums] 500 - 1,000 mg PO TID PRN 06/12/16 12/17/16 Loratadine [Claritin] 10 mg PO DAILY PRN 06/12/16 12/17/16 Naphazoline HCl/Glycerin [Clear 1 - 2 drops BOTH EYES DAILY PRN 06/12/16 Eyes Max Redness Rlf Drp] Acetaminophen [Tylenol Arthritis] 650 mg PO Q4-6H PRN 12/17/16 12/17/16 Aspirin/Acetaminophen/Caffeine 1 - 2 tab PO BID PRN 12/17/16 12/17/16 [Excedrin Migraine Caplet] Atorvastatin Calcium [Lipitor] 10 mg PO DAILY 12/17/16 12/17/16 Bisacodyl [Dulcolax] 10 mg RECTAL DAILY PRN 12/17/16 12/17/16 Docusate [Colace] 100 mg PO BID 12/17/16 12/17/16 Fexofenadine HCl [Charo Allergy] 90 mg PO DAILY 12/17/16 12/17/16 Naproxen Sodium [Aleve] 220 mg PO Q12H PRN 12/17/16 12/17/16 Phenyleph/Pramoxin/Glycr/W.pet 1 applic RECTAL DAILY PRN 12/17/16 12/17/16 [Preparation H Cream] Phenylephrine HCl/[place] Butter 1 supp RECTAL DAILY PRN 12/17/16 12/17/16 [Preparation H Suppository] Ranitidine HCl [Zantac] 75 mg PO AC-BID PRN 12/17/16 12/17/16 Simethicone [Gas-X] 125 mg PO DAILY PRN 12/17/16 12/17/16 Spironolactone [Aldactone] 25 mg PO BID 12/17/16 12/17/16 Triamcinolone Acetonide [Nasacort] 1 - 2 spray EA NOSTRIL DAILY PRN 12/17/1604/27 Wheat Dextrin [Benefiber] 1 packet PO TID 12/17/16 12/17/16 Previous Rx's Medication Instructions Recorded Sennosides-Docusate Sodium 2 tab PO DAILY #60 tablet 12/21/16 [Senokot-S] Benzonatate [Tessalon Perles] 100 mg PO TID PRN #15 capsule 05/25/18 Ondansetron Odt [Zofran ODT] 4 mg PO Q8HR PRN #10 tab 05/25/18 Albuterol Inhaler [Ventolin Hfa 1 - 2 puff INHALATION Q6HR PRN #1 05/29/18 Inhaler] inhaler predniSONE [Deltasone] 40 mg PO DAILY 5 Days #10 tablet 06/01/18 Allergies Allergy/AdvReac Type Severity Reaction Status Date / Time cefuroxime axetil Allergy Unknown Verified 06/01/18 12:04 [From Ceftin] dicyclomine [From Bentyl] Allergy Unknown Verified 06/01/18 12:04 hyoscyamine [From Levbid] Allergy Unknown Verified 06/01/18 12:04 levofloxacin [From Levaquin] Allergy Unknown Verified 06/01/18 12:04 tramadol Allergy Unknown Verified 06/01/18 12:04 Review of Systems ROS Statement: Those systems with pertinent positive or pertinent negative responses have been documented in the HPI. ROS Other: All systems not noted in ROS Statement are negative. Constitutional: Denies: fever, chills ENT: Denies: ear pain, throat pain Respiratory: Reports: cough, wheezes. Denies: hemoptysis Cardiovascular: Denies: chest pain, palpitations, dyspnea on exertion, edema Endocrine: Reports: fatigue Gastrointestinal: Denies: abdominal pain, nausea, vomiting Genitourinary: Denies: urgency, dysuria Musculoskeletal: Denies: back pain Skin: Denies: rash, lesions Neurological: Denies: headache, weakness Psychiatric: Denies: anxiety, depression Hematological/Lymphatic: Reports: easy bleeding, easy bruising (on plavix) Past Medical History Past Medical History: COPD, CVA/TIA, GERD/Reflux, Hyperlipidemia, Hypertension, Osteoarthritis (OA) Additional Past Medical History / Comment(s): IBS, overactive bladder; vertigo, steroids recently prescribed, diverticulosis, uterine fibroids, [place] History of Any Multi-Drug Resistant Organisms: None Reported Past Surgical History: Breast Surgery Past Anesthesia/Blood Transfusion Reactions: No Reported Reaction Past Psychological History: Anxiety Smoking Status: Former smoker Past Alcohol Use History: None Reported Past Drug Use History: None Reported - Past Family History Father Family Medical History: Myocardial Infarction ([place]) Mother Family Medical History: Congestive Heart Failure (CHF) General Exam Limitations: no limitations General appearance: alert, in no apparent distress Head exam: Present: atraumatic, normocephalic Eye exam: Present: normal appearance, PERRL ENT exam: Present: normal exam, normal oropharynx, other (poor oral hygiene) Neck exam: Present: normal inspection Respiratory exam: Present: wheezes, other (crackles at right base). Absent: respiratory distress Cardiovascular Exam: Present: regular rate, normal rhythm GI/Abdominal exam: Present: soft. Absent: distended Rectal exam: Present: deferred Back exam: Present: normal inspection Neurological exam: Present: alert, oriented X3 Psychiatric exam: Present: anxious Skin exam: Present: warm, dry Course Vital Signs 06/01/18 06/01/18 06/01/18 12:04 14:32 14:43 Temperature 98.5 F Pulse Rate 97 93 100 Respiratory 18 Rate Blood Pressure 140/76 O2 Sat by Pulse 98 Oximetry 06/01/18 15:16 Temperature Pulse Rate 97 Respiratory 18 Rate Blood Pressure 158/74 O2 Sat by Pulse 96 Oximetry Medical Decision Making - Medical Decision Making 67-year-old female with a history of chronic bronchitis intermittently treated with steroids over the past year presents the ER with a persistent cough. This apparently has been going on intermittently for a year but has been pretty persistent over the past month. She has been evaluated by her primary care as well as dental scheduling coordinator. She is on very low dose steroids at this time. Vital signs reviewed, patient is afebrile, normal oxygen saturation, not tachypneic, not tachycardic, no Sirs criteria On physical exam patient has no concerning signs or symptoms, she does admit that this is a chronic cough that she is feeling set up. I will obtain a chest x-ray as well as basic labs and treat the patient with Dagmar montero steroids Labs reveal leukocytosis, however the patient is currently on steroids and has no signs of infection Chest x-ray with no acute findings Patient was reevaluated after steroids and DuoNeb, reports significant improvement. Patient is no longer coughing during her reexamination. Labs and x-ray findings were discussed with the patient who expresses relief that there is no pneumonia. I discussed treatment of COPD with the patient, at this time she is on symptomatic treatment but no preventative medicine. I advised her that she needs to follow up with a recovery operator helper who will I will refer her to for discussion of other medications for maintenance and prevention of exacerbations. In addition I will give a short burst dose of steroids. Patient requesting a refill on her albuterol, patient last saw her doctor 2 days ago. I advised the patient that she needs to have her albuterol by her doctor, she currently has plenty of albuterol to last her through the week. Patient asking for prescription for a nebulizer for home, I advised her again this needs to be discussed with her primary care physician. She contacted her primary care physician and advised him that she was in the emergency department. He recommended changing her antibiotics, he stated that he could call in a new antibiotic for her. At this time I don't feel antibiotic therapy is indicated. - Lab Data Result diagrams: 06/01/18 14:16 06/01/18 14:16 Lab Results 06/01/18 06/01/18 Range/Units 14:16 14:16 WBC 18.4 H (3.8-10.6) k/uL RBC 4.88 (3.80-5.40) m/uL Hgb 15.1 (11.4-16.0) gm/dL Hct 43.2 (34.0-46.0) % MCV 88.4 (80.0-100.0) fL MCH 31.0 (25.0-35.0) pg MCHC 35.0 (31.0-37.0) g/dL RDW 12.7 (11.5-15.5) % Plt Count 354 (150-450) k/uL Neutrophils % 82 % Lymphocytes % 11 % Monocytes % 5 % Eosinophils % 1 % Basophils % 0 % Neutrophils # 15.1 H (1.3-7.7) k/uL Lymphocytes # 2.1 (1.0-4.8) k/uL Monocytes # 0.8 (0-1.0) k/uL Eosinophils # 0.1 (0-0.7) k/uL Basophils # 0.0 (0-0.2) k/uL Sodium 131 L (137-145) mmol/L Potassium 4.5 (3.5-5.1) mmol/L Chloride 100 (98-107) mmol/L Carbon Dioxide 19 L (22-30) mmol/L Anion Gap 12 mmol/L BUN 27 H (7-17) mg/dL Creatinine 0.88 (0.52-1.04) mg/dL Est GFR (CKD-EPI)AfAm 78 (>60 ml/min/1.73 sqM) Est GFR (CKD-EPI)NonAf 68 (>60 ml/min/1.73 sqM) Glucose 101 H (74-99) mg/dL Calcium 10.2 (8.4-10.2) mg/dL Disposition Clinical Impression: Bronchitis Disposition: HOME SELF-CARE Condition: Good Instructions: Upper Respiratory Infection (ED), COPD (Chronic Obstructive Pulmonary Disease) (ED), Chronic Bronchitis (ED), How Your Lungs Work (ED) Prescriptions: predniSONE [Deltasone] 40 mg PO DAILY 5 Days #10 tablet Is patient prescribed a controlled substance at d/c from ED?: No Referrals: Munir Beltran MD [Primary Care Provider] - 1-2 days Jordan Quiñones DO [Doctor of Osteopathic Medicine] - 1-2 days Time of Disposition: 14:51
[2018-06-01 15:17] VITALS: BP 158/74; PULSE 97
== END 2018-06-01 15:17 | disposition home or self-care (01) ==
LOC: EC 11:42
DX: J40 Bronchitis, not specified as acute or chronic (principal); D72.829 Elevated white blood cell count, unspecified; J44.9 Chronic obstructive pulmonary disease, unspecified; K21.9 Gastro-esophageal reflux disease without esophagitis; E78.5 Hyperlipidemia, unspecified; I10 Essential (primary) hypertension; F41.9 Anxiety disorder, unspecified; Z86.73 Personal history of transient ischemic attack (TIA), and cerebral infarction without residual deficits; Z87.891 Personal history of nicotine dependence; Z79.02 Long term (current) use of antithrombotics/antiplatelets; Z79.899 Other long term (current) drug therapy; Z88.1 Allergy status to other antibiotic agents; Z88.8 Allergy status to other drugs, medicaments and biological substances; Z88.6 Allergy status to analgesic agent
CPT/HCPCS: 36415; 94640; 80048; 85025; 71046; 99284; 96374; 96361; J2930

== ENCOUNTER → 2018-07-04 | Outpatient (CLI) | payer MEDICARE, BC ==
[2018-07-04 10:05] LABS: HCT 43.9 % (34.0-46.0); HGB 15.4 gm/dL (11.4-16.0); MCH 32.4 pg (25.0-35.0); MCHC 35.1 g/dL (31.0-37.0); MCV 92.4 fL (80.0-100.0); Mean Platelet Volume 5.9; Platelet Count 261 k/uL (150-450); RBC 4.75 m/uL (3.80-5.40); RDW 13.2 % (11.5-15.5); WBC 8.3 k/uL (3.8-10.6)
[2018-07-04 11:13] LABS: Albumin 4.3 g/dL (3.5-5.0); Calcium 9.8 mg/dL (8.4-10.2); Potassium 4.6 mmol/L (3.5-5.1); Total Bilirubin 0.7 mg/dL (0.2-1.3); Total Protein 6.8 g/dL (6.3-8.2)
[2018-07-04 11:26] LABS: T4, Free (Free Thyroxine) 1.23 ng/dL (0.78-2.19)
== END | disposition home or self-care (01) ==
LOC: LABWHC1 09:14
PROVIDERS: ATTEND Internal Medicine
DX: Z00.00 Encounter for general adult medical examination without abnormal findings (principal); I11.9 Hypertensive heart disease without heart failure; E78.2 Mixed hyperlipidemia; K21.0 Gastro-esophageal reflux disease with esophagitis
CPT/HCPCS: 36415; 80053; 80061; 82272; 84439; 84443; 85027

== ENCOUNTER → 2018-08-06 | Outpatient (CLI) | payer MEDICARE, BC ==
--- NOTE | 2018-08-08 10:01 | MM ---
Reason for exam: screening (asymptomatic). Last mammogram was performed 1 year and 4 months ago. History: Patient is postmenopausal. 2 benign excisional biopsies of the left breast. Took estrogen for 11 years 9 months. Took progesterone for 11 years 9 months. Physical Findings: A clinical breast exam by your physician is recommended on an annual basis and results should be correlated with mammographic findings. MG 3D Screening Mammo W/Cad Bilateral CC and MLO view(s) were taken. Prior study comparison: March 21, 2017, bilateral MG 3d screening mammo w/cad. February 15, 2016, bilateral MG 3d screening mammo w/cad. There are scattered fibroglandular densities. There is chronic nodularity bilaterally. No significant changes when compared with prior studies. ASSESSMENT: Benign, BI-RAD 2 RECOMMENDATION: Routine screening mammogram of both breasts in 1 year.
== END | disposition home or self-care (01) ==
LOC: RADMAMWWP 15:11
PROVIDERS: ATTEND Internal Medicine
DX: Z12.31 Encounter for screening mammogram for malignant neoplasm of breast (principal)
CPT/HCPCS: 77063; 77067

== ENCOUNTER 2018-08-24 15:59 | Emergency (ER) | payer MEDICARE, BC ==
[2018-08-24 16:32] VITALS: TEMP 98.6
[2018-08-24] MEDS ORDERED: SODIUM CHLORIDE 0.9% 1,000 ML IV STA ×2 (17:01)
[2018-08-24] MEDS ORDERED: ONDANSETRON 4 MG/2 ML VIAL IVP STA (17:01)
[2018-08-24 17:19] LABS: Basophils % (A) 0 %; Eosinophils # (A) 0.1 k/uL (0-0.7); Eosinophils % (A) 1 %; HCT 44.1 % (34.0-46.0); HGB 15.3 gm/dL (11.4-16.0); Lymphocytes # (A) 1.4 k/uL (1.0-4.8); Lymphocytes % (A) 14 %; MCH 31.9 pg (25.0-35.0); MCHC 34.8 g/dL (31.0-37.0); MCV 91.8 fL (80.0-100.0); Mean Platelet Volume 6.1; Monocytes # (A) 0.5 k/uL (0-1.0); Monocytes % (A) 5 %; Neutrophils # (A) 7.7 k/uL (1.3-7.7); Neutrophils % (A) 78 %; Platelet Count 329 k/uL (150-450); RBC 4.81 m/uL (3.80-5.40); RDW 12.9 % (11.5-15.5); WBC 9.9 k/uL (3.8-10.6)
[2018-08-24 17:28] LABS: Albumin 4.9 g/dL (3.5-5.0); Calcium 10.6 mg/dL (8.4-10.2); Potassium 4.8 mmol/L (3.5-5.1); Total Bilirubin 0.5 mg/dL (0.2-1.3); Total Protein 7.8 g/dL (6.3-8.2)
[2018-08-24 17:32] LABS: INR 0.9 (<1.2); Partial Thromboplastin Time 23.2 sec (22.0-30.0); Prothrombin Time 9.4 sec (9.0-12.0)
--- NOTE | 2018-08-24 17:33 | ED ---
General Adult HPI - General Chief complaint: Nausea/Vomiting/Diarrhea Stated complaint: Abdominal pain & nausea Time Seen by Provider: 08/24/18 16:38 Source: patient, RN notes reviewed, old records reviewed Mode of arrival: ambulatory Limitations: no limitations - History of Present Illness Initial comments: is a 57-year-old female with history of IBS presents emergency department today with chief complaint of intermittent diarrhea and constipation for the past few months. Patient reports that she is concerned because she cannot seem to keep this under control. Patient states that she had episodes in the recent past where she is scheduled for bowel movements that she was unable to get to the bathroom fast enough. Patient states that it was after she was taking MiraLAX. Patient states that she does see Dr. Miguel GI specialist recommended Senokot. Patient has had no recent fever or chills. She denies any urinary symptoms. She just reports that she takes a Senokot she is having diffuse abdominal cramping. She also complains of significant nausea and has been using nausea medications at home. She had tomato soup today. She did not have any vomiting. Patient's concerned and states that she wants to be admitted for reevaluation. She denies any specific abdominal tenderness.Patient denies any recent fever, chills, shortness of breath, chest pain, back pain,, numbness or tingling, dysuria or hematuria, constipation or diarrhea, headaches or visual changes, or any other current symptoms - Related Data Home Medications Medication Instructions Recorded Confirmed Clopidogrel [Plavix] 75 mg PO DAILY 08/20/15 08/24/18 Fluocinolone Acetonide Oil 2 drop BOTH EARS BID PRN 08/20/15 08/24/18 [Fluocinolone Acetonide Oil (Otic)] Loperamide [Imodium] 2 mg PO QID PRN 08/20/15 08/24/18 amLODIPine [Norvasc] 5 mg PO DAILY 08/20/15 08/24/18 L.acidoph,Paracasei, B.lactis 1 cap PO DAILY 08/21/15 08/24/18 [Probiotic] Meclizine [Antivert] 25 - 50 mg PO DAILY PRN 08/21/15 08/24/18 Oxybutynin Chloride [Oxybutynin 10 mg PO DAILY 08/21/15 08/24/18 Chloride ER] Calcium Carbonate [Tums] 500 - 1,000 mg PO TID PRN 06/12/16 08/24/18 Naphazoline HCl/Glycerin [Clear 1 - 2 drops BOTH EYES DAILY PRN 06/12/16 Eyes Max Redness Rlf Drp] Acetaminophen [Tylenol Arthritis] 650 mg PO Q4-6H PRN 12/17/16 08/24/18 Atorvastatin Calcium [Lipitor] 10 mg PO DAILY 12/17/16 08/24/18 Fexofenadine HCl [Charo Allergy] 180 mg PO DAILY 12/17/16 08/24/18 Phenylephrine HCl/[place] Butter 1 supp RECTAL DAILY PRN 12/17/16 08/24/18 [Preparation H Suppository] Spironolactone [Aldactone] 25 mg PO BID 12/17/16 08/24/18 Triamcinolone Acetonide [Nasacort] 1 - 2 spray EA NOSTRIL DAILY PRN 12/17/16 ALPRAZolam [Xanax] 0.25 mg PO BID 08/24/18 08/24/18 Fleet Suppository 1 supp RECTAL DAILY PRN 08/24/18 08/24/18 LORazepam [Ativan] 0.5 mg PO BID 08/24/18 08/24/18 Lansoprazole 30 mg PO DAILY 08/24/18 08/24/18 Magnesium Citrate 296 ml PO DAILY PRN 08/24/18 08/24/18 Melatonin 3 mg PO HS PRN 08/24/18 08/24/18 Montelukast [Singulair] 10 mg PO HS 08/24/18 08/24/18 Multivitamins, Thera [Multivitamin 1 tab PO DAILY 08/24/18 08/24/18 (formulary)] Prochlorperazine [Compazine] 5 mg PO Q6HR PRN 08/24/18 08/24/18 Restfull Legs 1 tab PO DAILY PRN 08/24/18 08/24/18 Previous Rx's Medication Instructions Recorded Sennosides-Docusate Sodium 2 tab PO DAILY #60 tablet 12/21/16 [Senokot-S] Metoclopramide [Reglan] 10 mg PO ACHS #15 tab 08/24/18 Allergies Allergy/AdvReac Type Severity Reaction Status Date / Time amoxicillin [From Augmentin] Allergy Unknown Verified 08/24/18 17:11 cefuroxime axetil Allergy Unknown Verified 08/24/18 16:57 [From Ceftin] clavulanic acid Allergy Unknown Verified 08/24/18 17:11 [From Augmentin] dicyclomine [From Bentyl] Allergy Unknown Verified 08/24/18 16:57 hyoscyamine [From Levbid] Allergy Unknown Verified 08/24/18 16:57 levofloxacin [From Levaquin] Allergy Unknown Verified 08/24/18 16:57 tramadol Allergy Unknown Verified 08/24/18 16:57 Review of Systems ROS Statement: Those systems with pertinent positive or pertinent negative responses have been documented in the HPI. ROS Other: All systems not noted in ROS Statement are negative. Past Medical History Past Medical History: COPD, CVA/TIA, GERD/Reflux, Hyperlipidemia, Hypertension, Osteoarthritis (OA) Additional Past Medical History / Comment(s): IBS, overactive bladder; vertigo, steroids recently prescribed, diverticulosis, uterine fibroids, [place] History of Any Multi-Drug Resistant Organisms: None Reported Past Surgical History: Breast Surgery Past Anesthesia/Blood Transfusion Reactions: No Reported Reaction Past Psychological History: Anxiety Smoking Status: Former smoker Past Alcohol Use History: None Reported Past Drug Use History: None Reported - Past Family History Father Family Medical History: Myocardial Infarction ([place]) Mother Family Medical History: Congestive Heart Failure (CHF) General Exam - General Exam Comments Initial Comments: 67-year-old female. Alert and oriented 3. Patient appears in no significant distress. Limitations: no limitations General appearance: alert, in no apparent distress Head exam: Present: atraumatic, normocephalic, normal inspection Eye exam: Present: normal appearance, PERRL, EOMI. Absent: scleral icterus, conjunctival injection, periorbital swelling ENT exam: Present: normal exam, mucous membranes moist Neck exam: Present: normal inspection. Absent: tenderness, meningismus, lymphadenopathy Respiratory exam: Present: normal lung sounds bilaterally. Absent: respiratory distress, wheezes, rales, rhonchi, stridor Cardiovascular Exam: Present: regular rate, normal rhythm, normal heart sounds. Absent: systolic murmur, diastolic murmur, rubs, gallop, clicks GI/Abdominal exam: Present: soft, normal bowel sounds. Absent: distended, tenderness, guarding, rebound, rigid Extremities exam: Present: normal inspection, full ROM, normal capillary refill. Absent: tenderness, pedal edema, joint swelling, calf tenderness Back exam: Present: normal inspection Neurological exam: Present: alert, oriented X3, CN II-XII intact Psychiatric exam: Present: normal affect, normal mood Skin exam: Present: warm, dry, intact, normal color. Absent: rash Course Vital Signs 08/24/18 16:30 Temperature 98.6 F Pulse Rate 85 Respiratory 18 Rate Blood Pressure 133/72 O2 Sat by Pulse 99 Oximetry Medical Decision Making - Medical Decision Making 67-year-old female, well-appearing presents today with nausea as well as intermittent Patient diary. Patient's has no specific abdominal pain. Vital signs are stable. I did give the Patient IV fluids and lab work was obtained. Given Zofran for nausea. At this time patient's lab work was reviewed and unremarkable. She had a normal KUB. Patient has no tenderness. I discussed that with IBS in the medication she is taking to manage that she can't have the symptoms of nausea as well as cramping in her abdomen when she takes her constipation medication. Patient at this time has been informed that she's had normal exam findings and I do not want to do any further testing such as CT. Patient agrees. I discussed that she needs a prompt follow-up with her GI specialist and her primary care physician. Discussed close return parameters. - Lab Data Result diagrams: 08/24/18 17:06 08/24/18 17:06 Lab Results 08/24/18 08/24/18 08/24/18 Range/Units 17:06 17:06 17:06 WBC 9.9 (3.8-10.6) k/uL RBC 4.81 (3.80-5.40) m/uL Hgb 15.3 (11.4-16.0) gm/dL Hct 44.1 (34.0-46.0) % MCV 91.8 (80.0-100.0) fL MCH 31.9 (25.0-35.0) pg MCHC 34.8 (31.0-37.0) g/dL RDW 12.9 (11.5-15.5) % Plt Count 329 (150-450) k/uL Neutrophils % 78 % Lymphocytes % 14 % Monocytes % 5 % Eosinophils % 1 % Basophils % 0 % Neutrophils # 7.7 (1.3-7.7) k/uL Lymphocytes # 1.4 (1.0-4.8) k/uL Monocytes # 0.5 (0-1.0) k/uL Eosinophils # 0.1 (0-0.7) k/uL Basophils # 0.0 (0-0.2) k/uL PT 9.4 (9.0-12.0) sec INR 0.9 (<1.2) APTT 23.2 (22.0-30.0) sec Sodium 137 (137-145) mmol/L Potassium 4.8 (3.5-5.1) mmol/L Chloride 101 (98-107) mmol/L Carbon Dioxide 26 (22-30) mmol/L Anion Gap 10 mmol/L BUN 14 (7-17) mg/dL Creatinine 0.94 (0.52-1.04) mg/dL Est GFR (CKD-EPI)AfAm 72 (>60 ml/min/1.73 sqM) Est GFR (CKD-EPI)NonAf 62 (>60 ml/min/1.73 sqM) Glucose 112 H (74-99) mg/dL Calcium 10.6 H (8.4-10.2) mg/dL Total Bilirubin 0.5 (0.2-1.3) mg/dL AST 18 (14-36) U/L ALT 30 (9-52) U/L Alkaline Phosphatase 64 (38-126) U/L Total Protein 7.8 (6.3-8.2) g/dL Albumin 4.9 (3.5-5.0) g/dL Amylase 51 (30-110) U/L Lipase 50 (23-300) U/L Urine Color Urine Appearance (Clear) Urine pH (5.0-8.0) Ur Specific [place] (1.001-1.035) Urine Protein (Negative) Urine Glucose (UA) (Negative) Urine Ketones (Negative) Urine Blood (Negative) Urine Nitrite (Negative) Urine Bilirubin (Negative) Urine Urobilinogen (<2.0) mg/dL Ur Leukocyte Esterase (Negative) Urine RBC (0-5) /hpf Urine WBC (0-5) /hpf Ur Squamous Epith Cells (0-4) /hpf Urine Mucus (None) /hpf 10/14/18 Range/Units 17:41 WBC (3.8-10.6) k/uL RBC (3.80-5.40) m/uL Hgb (11.4-16.0) gm/dL Hct (34.0-46.0) % MCV (80.0-100.0) fL MCH (25.0-35.0) pg MCHC (31.0-37.0) g/dL RDW (11.5-15.5) % Plt Count (150-450) k/uL Neutrophils % % Lymphocytes % % Monocytes % % Eosinophils % % Basophils % % Neutrophils # (1.3-7.7) k/uL Lymphocytes # (1.0-4.8) k/uL Monocytes # (0-1.0) k/uL Eosinophils # (0-0.7) k/uL Basophils # (0-0.2) k/uL PT (9.0-12.0) sec INR (<1.2) APTT (22.0-30.0) sec Sodium (137-145) mmol/L Potassium (3.5-5.1) mmol/L Chloride (98-107) mmol/L Carbon Dioxide (22-30) mmol/L Anion Gap mmol/L BUN (7-17) mg/dL Creatinine (0.52-1.04) mg/dL Est GFR (CKD-EPI)AfAm (>60 ml/min/1.73 sqM) Est GFR (CKD-EPI)NonAf (>60 ml/min/1.73 sqM) Glucose (74-99) mg/dL Calcium (8.4-10.2) mg/dL Total Bilirubin (0.2-1.3) mg/dL AST (14-36) U/L ALT (9-52) U/L Alkaline Phosphatase (38-126) U/L Total Protein (6.3-8.2) g/dL Albumin (3.5-5.0) g/dL Amylase (30-110) U/L Lipase (23-300) U/L Urine Color Yellow Urine Appearance Clear (Clear) Urine pH 7.0 (5.0-8.0) Ur Specific [place] 1.011 (1.001-1.035) Urine Protein Negative (Negative) Urine Glucose (UA) Negative (Negative) Urine Ketones Negative (Negative) Urine Blood Negative (Negative) Urine Nitrite Negative (Negative) Urine Bilirubin Negative (Negative) Urine Urobilinogen <2.0 (<2.0) mg/dL Ur Leukocyte Esterase Trace H (Negative) Urine RBC 1 (0-5) /hpf Urine WBC 1 (0-5) /hpf Ur Squamous Epith Cells 1 (0-4) /hpf Urine Mucus Rare H (None) /hpf - Radiology Data Radiology results: report reviewed Nonacute abdomen. No acute changes noted. Disposition Clinical Impression: IBS (irritable bowel syndrome), Nausea Disposition: HOME SELF-CARE Condition: Good Instructions: Acute Nausea and Vomiting (ED), Irritable Bowel Syndrome (ED) Additional Instructions: Advised follow-up with primary care provider. She denies sick contact GI specialist, you may need Viberzi medication. Patient advised to monitor her sugar intake. Increase vegetables in your diet. Return to the emergency department if any alarming signs or symptoms occur. Prescriptions: Metoclopramide [Reglan] 10 mg PO ACHS #15 tab Is patient prescribed a controlled substance at d/c from ED?: No Referrals: Munir Beltran MD [Primary Care Provider] - 1-2 days Time of Disposition: 19:55
[2018-08-24 18:25] LABS: Appearance,Urine Clear (Clear); Bilirubin,Urine Negative (Negative); Blood,Urine Negative (Negative); Color,Urine Yellow; Glucose,Urine (UA) Negative (Negative); Ketones,Urine Negative (Negative); Leukocyte Esterase,Urine Trace (Negative); Mucus,Urine Rare /hpf; Nitrite,Urine Negative (Negative); Protein,Urine Negative (Negative); RBC,Urine 1 /hpf (0-5); Specific Gravity,Urine 1.011 (1.001-1.035); Squamous Epithelial Cell,Urine 1 /hpf (0-4); Urobilinogen,Urine <2.0 mg/dL (<2.0); WBC,Urine 1 /hpf (0-5)
[2018-08-24] MEDS ORDERED: ACETAMINOPHEN TAB 500 MG TAB PO STA (18:48)
--- NOTE | 2018-08-24 18:48 | XR ---
EXAMINATION TYPE: XR KUB DATE OF EXAM: 08/24/2018 COMPARISON: 05/24/2018 HISTORY: Abdominal pain TECHNIQUE: 2 views upright FINDINGS: There is no sign of intestinal obstruction or pneumoperitoneum. Fecal pattern is normal. Franny ng bases are clear. There are no pathologic calcifications. IMPRESSION: Nonacute abdomen. No change.
[2018-08-24 20:03] VITALS: BP 135/78; PULSE 93; RESP 16
== END 2018-08-24 20:10 | disposition home or self-care (01) ==
LOC: EC 15:59
DX: K58.0 Irritable bowel syndrome with diarrhea (principal); R11.0 Nausea; J44.9 Chronic obstructive pulmonary disease, unspecified; E78.5 Hyperlipidemia, unspecified; I10 Essential (primary) hypertension; N32.81 Overactive bladder; K21.9 Gastro-esophageal reflux disease without esophagitis; F41.9 Anxiety disorder, unspecified; H91.90 Unspecified hearing loss, unspecified ear; Z87.891 Personal history of nicotine dependence; Z88.0 Allergy status to penicillin; Z88.1 Allergy status to other antibiotic agents; Z88.5 Allergy status to narcotic agent; Z88.8 Allergy status to other drugs, medicaments and biological substances; Z79.02 Long term (current) use of antithrombotics/antiplatelets; Z79.899 Other long term (current) drug therapy; Z86.73 Personal history of transient ischemic attack (TIA), and cerebral infarction without residual deficits
CPT/HCPCS: 36415; 80053; 82150; 83690; 85025; 85610; 85730; 81001; 74018; 99284; 96374; 96361 ×2; J2405

== ENCOUNTER 2018-09-03 15:21 | Inpatient (IN) | payer MEDICARE, BC ==
[2018-09-03] MEDS ORDERED: SODIUM CHLORIDE 0.9% 500 ML 500 ML IV STA (15:47)
--- NOTE | 2018-09-03 15:52 | ED ---
General Adult HPI - General Chief complaint: Neuro Symptoms/Deficit Stated complaint: Numbness on R Side Source: patient Mode of arrival: wheelchair Limitations: no limitations - History of Present Illness Initial comments: Dictation was produced using [employer] dictation software. please excuse any grammatical, word or spelling errors. Chief Complaint: 67-year-old female past medical history of CVA several years ago presents with strokelike symptoms starting at 145. History of Present Illness: Patient is 67-year-old female presents to strokelike symptoms starting at 145. Patient states her symptoms are similar to when she had a stroke proximal couple years ago. Patient takes Plavix patient denies any anticoagulation medications. Patient states that she has paresthesias to the right upper right lower and right face region. Patient denies any history of intracranial hemorrhage. Denies any pain complaints. Any weakness. The ROS documented in this emergency department record has been reviewed and confirmed by me. Those systems with pertinent positive or negative responses have been documented in the HPI. All other systems are other negative and/or noncontributory. - Related Data Home Medications Medication Instructions Recorded Confirmed Clopidogrel [Plavix] 75 mg PO DAILY 08/20/15 09/03/18 Fluocinolone Acetonide Oil 2 drop BOTH EARS BID PRN 08/20/15 09/03/18 [Fluocinolone Acetonide Oil (Otic)] Loperamide [Imodium] 2 mg PO QID PRN 08/20/15 09/03/18 amLODIPine [Norvasc] 5 mg PO DAILY 08/20/15 09/03/18 L.acidoph,Paracasei, B.lactis 1 cap PO DAILY 08/21/15 09/03/18 [Probiotic] Meclizine [Antivert] 25 - 50 mg PO DAILY PRN 08/21/15 09/03/18 Oxybutynin Chloride [Oxybutynin 10 mg PO DAILY 08/21/15 09/03/18 Chloride ER] Calcium Carbonate [Tums] 500 - 1,000 mg PO TID PRN 06/12/16 09/03/18 Naphazoline HCl/Glycerin [Clear 1 - 2 drops BOTH EYES DAILY PRN 06/12/16 Eyes Max Redness Rlf Drp] Acetaminophen [Tylenol Arthritis] 650 mg PO Q4-6H PRN 12/17/16 09/03/18 Atorvastatin Calcium [Lipitor] 10 mg PO DAILY 12/17/16 09/03/18 Fexofenadine HCl [Charo Allergy] 180 mg PO DAILY 12/17/16 09/03/18 Phenylephrine HCl/[place] Butter 1 supp RECTAL DAILY PRN 12/17/16 09/03/18 [Preparation H Suppository] Spironolactone [Aldactone] 25 mg PO BID 12/17/16 09/03/18 Triamcinolone Acetonide [Nasacort] 1 - 2 spray EA NOSTRIL DAILY PRN 12/17/16 ALPRAZolam [Xanax] 0.25 mg PO BID 08/24/18 09/03/18 Fleet Suppository 1 supp RECTAL DAILY PRN 08/24/18 09/03/18 LORazepam [Ativan] 0.5 mg PO BID 08/24/18 09/03/18 Lansoprazole 30 mg PO DAILY 08/24/18 09/03/18 Magnesium Citrate 296 ml PO DAILY PRN 08/24/18 09/03/18 Melatonin 3 mg PO HS PRN 08/24/18 09/03/18 Montelukast [Singulair] 10 mg PO HS 08/24/18 09/03/18 Multivitamins, Thera [Multivitamin 1 tab PO DAILY 08/24/18 09/03/18 (formulary)] Prochlorperazine [Compazine] 5 mg PO Q6HR PRN 08/24/18 09/03/18 Restfull Legs 1 tab PO DAILY PRN 08/24/18 09/03/18 Previous Rx's Medication Instructions Recorded Sennosides-Docusate Sodium 2 tab PO DAILY #60 tablet 12/21/16 [Senokot-S] Metoclopramide [Reglan] 10 mg PO ACHS #15 tab 08/24/18 Allergies Allergy/AdvReac Type Severity Reaction Status Date / Time amoxicillin [From Augmentin] Allergy Unknown Verified 09/03/18 15:54 cefuroxime axetil Allergy Unknown Verified 09/03/18 15:54 [From Ceftin] clavulanic acid Allergy Unknown Verified 09/03/18 15:54 [From Augmentin] dicyclomine [From Bentyl] Allergy Unknown Verified 09/03/18 15:54 hyoscyamine [From Levbid] Allergy Unknown Verified 09/03/18 15:54 levofloxacin [From Levaquin] Allergy Unknown Verified 09/03/18 15:54 tramadol Allergy Unknown Verified 09/03/18 15:54 Review of Systems ROS Statement: Those systems with pertinent positive or pertinent negative responses have been documented in the HPI. ROS Other: All systems not noted in ROS Statement are negative. Past Medical History Past Medical History: COPD, CVA/TIA, GERD/Reflux, Hyperlipidemia, Hypertension, Osteoarthritis (OA) Additional Past Medical History / Comment(s): IBS, overactive bladder; vertigo, steroids recently prescribed, diverticulosis, uterine fibroids, [place] History of Any Multi-Drug Resistant Organisms: None Reported Past Surgical History: Breast Surgery Past Anesthesia/Blood Transfusion Reactions: No Reported Reaction Past Psychological History: Anxiety Smoking Status: Former smoker Past Alcohol Use History: None Reported Past Drug Use History: None Reported - Past Family History Father Family Medical History: Myocardial Infarction (AR) Mother Family Medical History: Congestive Heart Failure (CHF) General Exam - General Exam Comments Initial Comments: PHYSICAL EXAM: General Impression: Alert and oriented x3, not in acute distress HEENT: Normocephalic atraumatic, extra-ocular movements intact, pupils equal and reactive to light bilaterally, mucous membranes moist. Cardiovascular: Heart regular rate and rhythm, S1&S2 audible, no murmurs, rubs or gallops Chest: Lungs clear to auscultation bilaterally, no rhonchi, no wheeze, no rales Abdomen: Bowel sounds present, abdomen soft, non-tender, non-distended, no organomegaly Musculoskeletal: Pulses present and equal in all extremities, no peripheral edema Motor: Power 5/5 bilaterally, no focal deficits noted Neurological: CN II-XII grossly intact, mild sensory deficits to the entire right upper extremity, entire right lower extremity and miracle-face on the right side, patient mildly dysarthric. No aphasia, no facial weakness Skin: Intact with no visualized rashes Psych: Normal affect and mood Limitations: no limitations Course Vital Signs 09/03/18 09/03/18 09/03/18 15:23 15:39 15:45 Temperature 98.6 F 97.9 F Pulse Rate 110 H 98 Respiratory 18 22 18 Rate Blood Pressure 136/73 113/78 O2 Sat by Pulse 99 99 Oximetry 09/03/18 09/03/18 09/03/18 16:00 16:15 16:30 Temperature 98.0 F Pulse Rate 97 Respiratory 17 18 Rate Blood Pressure 155/77 144/70 132/63 O2 Sat by Pulse 98 100 Oximetry Medical Decision Making - Medical Decision Making ED course: 67-year-old female presents to strokelike symptoms started at 145. Vital signs upon arrival shows heart rate of 110. Blood pressure 136/73. Patient has a history of stroke. Patient has no absolute contraindications for TPA at this time. Patient is within 2 hours of onset. Code stroke was activated. Patient was given NIH of 4.Laboratory evaluation was obtained. CBC unremarkable. Coag panel unremarkable. Metabolic panel is negative. Urinalysis is unremarkable. CT angiogram of the head and neck shows right frontal lobe asymmetry and possibly of small vessel vasculature. No major intracranial occlusion aneurysm or dissection. CT of the brain did not show any intracranial bleeding however this progressive severe white matter change. Chest x-ray was obtained showing no acute findings. Closure was paged. Patient was evaluated by telemetry neurologist who did not recommend TPA administration. He did recommend administering aspirin, Lipitor. He also recommends MRI and neurology consultation. Patient reevaluated with stable medical condition. Patient felt slightly anxious and given 0.5 by mouth of Xanax. Patient be admitted for cerebral vascular accident. EKG interpretation: Ventricular rate 97, normal sinus rhythm,. Interval 132, care is 114, QTc 462. No TN prolongation, no QTC prolongation, no ST or T-wave changes noted. There appears to be right bundle-branch morphology. Compared to EKG from 05/24/2018 showing no changes.. Overall, this EKG is unremarkable - Lab Data Result diagrams: 09/03/18 16:02 09/03/18 16:02 Lab Results 09/03/18 09/03/18 09/03/18 Range/Units 16:02 16:02 16:02 WBC 6.5 (3.8-10.6) k/uL RBC 4.61 (3.80-5.40) m/uL Hgb 14.6 (11.4-16.0) gm/dL Hct 42.2 (34.0-46.0) % MCV 91.5 (80.0-100.0) fL MCH 31.6 (25.0-35.0) pg MCHC 34.5 (31.0-37.0) g/dL RDW 12.6 (11.5-15.5) % Plt Count 276 (150-450) k/uL Neutrophils % 63 % Lymphocytes % 29 % Monocytes % 6 % Eosinophils % 1 % Basophils % 1 % Neutrophils # 4.1 (1.3-7.7) k/uL Lymphocytes # 1.9 (1.0-4.8) k/uL Monocytes # 0.4 (0-1.0) k/uL Eosinophils # 0.1 (0-0.7) k/uL Basophils # 0.0 (0-0.2) k/uL PT (9.0-12.0) sec INR (<1.2) APTT (22.0-30.0) sec Sodium 139 (137-145) mmol/L Potassium 4.5 (3.5-5.1) mmol/L Chloride 106 (98-107) mmol/L Carbon Dioxide 24 (22-30) mmol/L Anion Gap 9 mmol/L BUN 17 (7-17) mg/dL Creatinine 0.98 (0.52-1.04) mg/dL Est GFR (CKD-EPI)AfAm 68 (>60 ml/min/1.73 sqM) Est GFR (CKD-EPI)NonAf 59 (>60 ml/min/1.73 sqM) Glucose 120 H (74-99) mg/dL Calcium 10.4 H (8.4-10.2) mg/dL Total Bilirubin 0.5 (0.2-1.3) mg/dL AST 17 (14-36) U/L ALT 37 (9-52) U/L Alkaline Phosphatase 53 (38-126) U/L Total Creatine Kinase 52 (30-135) U/L CK-MB (CK-2) 0.7 (0.0-2.4) ng/mL CK-MB (CK-2) Rel Index 1.3 Troponin I <0.012 (0.000-0.034) ng/mL Total Protein 7.4 (6.3-8.2) g/dL Albumin 4.8 (3.5-5.0) g/dL Urine Color Urine Appearance (Clear) Urine pH (5.0-8.0) Ur Specific [place] (1.001-1.035) Urine Protein (Negative) Urine Glucose (UA) (Negative) Urine Ketones (Negative) Urine Blood (Negative) Urine Nitrite (Negative) Urine Bilirubin (Negative) Urine Urobilinogen (<2.0) mg/dL Ur Leukocyte Esterase (Negative) Urine WBC (0-5) /hpf Ur Squamous Epith Cells (0-4) /hpf Urine Bacteria (None) /hpf 09/03/18 09/03/18 Range/Units 16:02 16:20 WBC (3.8-10.6) k/uL RBC (3.80-5.40) m/uL Hgb (11.4-16.0) gm/dL Hct (34.0-46.0) % MCV (80.0-100.0) fL MCH (25.0-35.0) pg MCHC (31.0-37.0) g/dL RDW (11.5-15.5) % Plt Count (150-450) k/uL Neutrophils % % Lymphocytes % % Monocytes % % Eosinophils % % Basophils % % Neutrophils # (1.3-7.7) k/uL Lymphocytes # (1.0-4.8) k/uL Monocytes # (0-1.0) k/uL Eosinophils # (0-0.7) k/uL Basophils # (0-0.2) k/uL PT 9.5 (9.0-12.0) sec INR 1.0 (<1.2) APTT 23.3 (22.0-30.0) sec Sodium (137-145) mmol/L Potassium (3.5-5.1) mmol/L Chloride (98-107) mmol/L Carbon Dioxide (22-30) mmol/L Anion Gap mmol/L BUN (7-17) mg/dL Creatinine (0.52-1.04) mg/dL Est GFR (CKD-EPI)AfAm (>60 ml/min/1.73 sqM) Est GFR (CKD-EPI)NonAf (>60 ml/min/1.73 sqM) Glucose (74-99) mg/dL Calcium (8.4-10.2) mg/dL Total Bilirubin (0.2-1.3) mg/dL AST (14-36) U/L ALT (9-52) U/L Alkaline Phosphatase (38-126) U/L Total Creatine Kinase (30-135) U/L CK-MB (CK-2) (0.0-2.4) ng/mL CK-MB (CK-2) Rel Index Troponin I (0.000-0.034) ng/mL Total Protein (6.3-8.2) g/dL Albumin (3.5-5.0) g/dL Urine Color Colorless Urine Appearance Clear (Clear) Urine pH 7.0 (5.0-8.0) Ur Specific [place] 1.016 (1.001-1.035) Urine Protein Negative (Negative) Urine Glucose (UA) Negative (Negative) Urine Ketones Negative (Negative) Urine Blood Negative (Negative) Urine Nitrite Negative (Negative) Urine Bilirubin Negative (Negative) Urine Urobilinogen <2.0 (<2.0) mg/dL Ur Leukocyte Esterase Trace H (Negative) Urine WBC 2 (0-5) /hpf Ur Squamous Epith Cells <1 (0-4) /hpf Urine Bacteria Rare H (None) /hpf Disposition Clinical Impression: Cerebrovascular accident Disposition: ADMITTED IP TO THIS HOSP Condition: Fair Referrals: Munir Beltran MD [Primary Care Provider] - 1-2 days Decision Time: 17:24
[2018-09-03 16:25] LABS: Basophils % (A) 1 %; Eosinophils # (A) 0.1 k/uL (0-0.7); Eosinophils % (A) 1 %; HCT 42.2 % (34.0-46.0); HGB 14.6 gm/dL (11.4-16.0); Lymphocytes # (A) 1.9 k/uL (1.0-4.8); Lymphocytes % (A) 29 %; MCH 31.6 pg (25.0-35.0); MCHC 34.5 g/dL (31.0-37.0); MCV 91.5 fL (80.0-100.0); Mean Platelet Volume 6.2; Monocytes # (A) 0.4 k/uL (0-1.0); Monocytes % (A) 6 %; Neutrophils # (A) 4.1 k/uL (1.3-7.7); Neutrophils % (A) 63 %; Platelet Count 276 k/uL (150-450); RBC 4.61 m/uL (3.80-5.40); RDW 12.6 % (11.5-15.5); WBC 6.5 k/uL (3.8-10.6)
[2018-09-03 16:28] LABS: Partial Thromboplastin Time 23.3 sec (22.0-30.0); Prothrombin Time 9.5 sec (9.0-12.0)
[2018-09-03 16:29] LABS: Albumin 4.8 g/dL (3.5-5.0); Calcium 10.4 mg/dL (8.4-10.2); Potassium 4.5 mmol/L (3.5-5.1); Total Bilirubin 0.5 mg/dL (0.2-1.3); Total Protein 7.4 g/dL (6.3-8.2)
--- NOTE | 2018-09-03 16:31 | CT ---
EXAMINATION TYPE: CT brain wo con for TPA DATE OF EXAM: 09/03/2018 COMPARISON: 08/20/2015 HISTORY: Left sided body weakness and numbness CT DLP: 788.3 mGycm Automated exposure control for dose reduction was used. TECHNIQUE: CT scan of the head is performed without contrast. FINDINGS: There is no acute intracranial hemorrhage or midline shift identified. There is diffuse v entricular and sulcal prominence consistent with diffuse age-related cerebral atrophy. No suspicious extra-axial fluid collection. There is confluent low-attenuation in the periventricular white matter consistent with chronic small vessel ischemic change. This is most pronounced in the frontal lobes as seen on the prior 2014, slightly progressed. The globes are intact and the visualized sinuses are clear. IMPRESSION: 1. No acute intracranial hemorrhage or midline shift. 2. Progression of severe white matter change in comparison the prior of 08/20/2015 most confluent in the frontal lobes.
[2018-09-03 16:32] LABS: Creatine Kinase 52 U/L (30-135)
--- NOTE | 2018-09-03 16:36 | CT ---
EXAMINATION TYPE: CT angio head neck DATE OF EXAM: 09/03/2018 HISTORY: Left sided body weakness and numbness COMPARISON: CT brain of the same date. CT DLP: 342.1 mGycm. Automated Exposure Control for Dose Reduction was Utilized. TECHNIQUE: CTA scan of the neck is performed with IV Contrast, patient injected with 65 mL of Isovue 370, axial images are obtained, coronal and sagittal reformatted images are reviewed. Three-D recons tructed images are created on an independent workstation and reviewed. FINDINGS: Carotid/Vascular Structures: There is normal variant direct origin of the left vertebral artery from the aortic arch. The right vertebral artery is slightly dominant. Basilar artery is unremarkable. The common carotid arteries are patent with nonhemodynamically significant stenosis of both carotid bulb s (less than 50%). The supraclinoid and cavernous portions of the internal carotid arteries demonstra te mild nonhemodynamically significant atheromatous plaquing as well. There is slight paucity of vasculature there is asymmetric within the right frontal lobe in compariso n to the left. This may be an incidental finding. No dissection or focal aneurysm. No complete occlus ion of the major intracranial vasculature. Other: Moderate multilevel degenerative change of the cervical spine is seen. IMPRESSION: Right frontal lobe slight asymmetry and paucity of small vessel vasculature may be an incidental find ing. No major intracranial vasculature occlusion, aneurysm or dissection. Follow-up MRI is suggested to evaluate for acute infarct.
[2018-09-03 16:45] LABS: Creatine Kinase MB 0.7 ng/mL (0.0-2.4); Troponin I <0.012 ng/mL (0.000-0.034)
[2018-09-03 16:49] LABS: Appearance,Urine Clear (Clear); Bacteria,Urine Rare /hpf; Bilirubin,Urine Negative (Negative); Blood,Urine Negative (Negative); Color,Urine Colorless; Glucose,Urine (UA) Negative (Negative); Ketones,Urine Negative (Negative); Leukocyte Esterase,Urine Trace (Negative); Nitrite,Urine Negative (Negative); Protein,Urine Negative (Negative); Specific Gravity,Urine 1.016 (1.001-1.035); Squamous Epithelial Cell,Urine <1 /hpf (0-4); Urobilinogen,Urine <2.0 mg/dL (<2.0); WBC,Urine 2 /hpf (0-5)
[2018-09-03] MEDS ORDERED: ALPRAZolam 0.5 MG TAB PO STA (17:00)
--- NOTE | 2018-09-03 17:09 | XR ---
EXAMINATION TYPE: XR chest 2V DATE OF EXAM: 09/03/2018 COMPARISON: 06/01/2018 HISTORY: Right-sided numbness TECHNIQUE: Frontal and lateral views of the chest are obtained. FINDINGS: Heart and mediastinum are normal. Lungs are clear. Diaphragm is normal. Bony thorax is int act. There are chest leads. IMPRESSION: No active cardiopulmonary disease. There is clearing of some pleural thickening and nodu larity on the right lateral chest wall compared to old exam.
[2018-09-03] MEDS ORDERED: ASPIRIN 81 MG PO STA (17:14)
[2018-09-03] MEDS ORDERED: ATORVASTATIN 40 MG TAB PO STA (17:14)
[2018-09-03] MEDS ORDERED: NALOXONE 0.4 MG/ML 1 ML VIAL IV PRN (17:24)
[2018-09-03] MEDS: SODIUM CHLORIDE 0.9% 1,000 ML IV SCH (17:49)
[2018-09-03] MEDS ORDERED: ALPRAZolam 1 MG TAB PO STA (19:35)
[2018-09-03] MEDS: ACETAMINOPHEN TAB 325 MG TAB PO PRN (21:42)
[2018-09-04] MEDS: ACETAMINOPHEN TAB 325 MG TAB PO PRN ×3 (02:42→20:45)
[2018-09-04] MEDS: ONDANSETRON 4 MG/2 ML VIAL IVP PRN ×3 (02:42→20:46)
[2018-09-04] MEDS: PANTOPRAZOLE 40 MG/10 ML VIAL IV SCH (08:48)
[2018-09-04] MEDS ORDERED: NON-FORMULARY DRUG (Acetaminophen [Tylenol Arthritis] 650 MG) PO PRN (08:51)
[2018-09-04] MEDS ORDERED: OXYBUTYNIN 10 MG TAB.ER.24 PO SCH (09:00)
[2018-09-04] MEDS: LACTULOSE 20 GM/30 ML CUP PO SCH ×3 (10:45→20:43)
[2018-09-04] MEDS: SPIRONOLACTONE 25 MG TAB PO SCH ×2 (10:46→20:43)
[2018-09-04] MEDS: MULTIVITAMINS, THERA 1 EACH TAB PO SCH (10:46)
[2018-09-04] MEDS: amLODIPine 5 MG TAB PO SCH (10:46)
[2018-09-04] MEDS: CLOPIDOGREL 75 MG TAB PO SCH (10:46)
[2018-09-04] MEDS: ALPRAZolam 0.25 MG TAB PO SCH ×3 (10:47→20:44)
[2018-09-04] MEDS: LACTOBACILLUS ACIDOPH & BULGAR 1 EACH PACKET PO SCH (10:47)
[2018-09-04] MEDS ORDERED: LORazepam 2 MG/ML INJ IV STA (16:12)
[2018-09-04] MEDS: SODIUM CHLORIDE 0.9% 1,000 ML IV SCH (17:18)
--- NOTE | 2018-09-04 18:21 | CONS ---
CONSULTATION DATE OF SERVICE: 09/04/2018. CHIEF COMPLAINT: Stroke. HISTORY OF PRESENT ILLNESS: The patient is a pleasant 67-year-old female, who is being evaluated by the neurology service per the request of Dr. Munir Beltran for a stroke. The patient was brought into [facility] Emergency Room after she had a sudden onset of numbness and tingling involving her right side. A CT scan of the brain was done which showed advanced small vessel ischemic changes. CT angiogram of the brain was done, which was normal. A CT angiogram of the neck showed less than 50% stenosis involving bilateral internal carotid arteries. The patient was within the therapeutic window for TPA but her symptoms were improving and it was decided to not undergo tPA therapy in the emergency room. The patient does take Plavix 75 mg daily at home. She is also on Lipitor for statin therapy. Her CBC, cardiac enzymes, urinalysis, and INR were all reviewed and were normal. Her comprehensive metabolic profile was normal except for mild hypercalcemia at 10.4 and hyperglycemia at 120. At the time of my evaluation, she is lying in her bed and appears to be in no acute distress. She states that the numbness and tingling has improved and is now having on and off symptoms on the right upper and lower extremity and also involving her right face. PAST MEDICAL HISTORY: Transient ischemic attack, gastroesophageal reflux disease, chronic obstructive pulmonary disease, dyslipidemia, hypertension, arthritis, irritable bowel syndrome, recurrent vertigo, diverticulosis, uterine fibroids, anxiety disorder, history of breast surgery. SOCIAL HISTORY: The patient is a former smoker. She denies any alcohol or drug use. FAMILY HISTORY: Positive for heart disease. HOME MEDICATIONS: Reviewed in the chart. ALLERGIES: AMOXICILLIN, CEFTIN, BENTYL, LEVBID, LEVAQUIN, AND TRAMADOL. REVIEW OF SYSTEMS: CONSTITUTIONAL: Negative. Eyes: Negative. ENT: Positive for occasional vertigo. CARDIOVASCULAR: Negative. RESPIRATORY: Positive for occasional shortness of breath. NEUROLOGICAL: As mentioned above. GASTROINTESTINAL: Positive for occasional heartburn. GENITOURINARY: Negative. PSYCHIATRIC: Positive for history of anxiety disorder. MUSCULOSKELETAL: Positive for occasional joint pain. ENDOCRINE: Negative. DERMATOLOGICAL: Negative. PHYSICAL EXAM: Vital signs show a temperature of 98.3, pulse 86, respirations 16, blood pressure 123/77. GENERAL APPEARANCE: The patient is a well-developed female who appears to be in no acute distress. HEENT: Normocephalic, atraumatic, no facial asymmetry is seen. Extraocular muscles are intact. NECK: Supple with no masses felt. CARDIOVASCULAR: Regular rate and rhythm. ABDOMEN: Nontender nondistended. Extremities showed no edema or clubbing. Neurological exam: The patient is awake and oriented x3. Speech and language are normal. Strength is full in all 4 extremities. Sensory exam showed slightly reduced light touch sensation in the right upper extremity compared to the left. Sensory exam was normal in the lower extremities. No pronator drift is seen. No tremors or seizure- like activity is noticed. No facial asymmetry is seen on cranial nerve testing but she did have slightly reduced light touch sensation on the right face compared to the left. IMPRESSION: 1. Acute ischemic stroke. 2. Right-sided numbness. 3. Hypertension. 4. Dyslipidemia. 5. Small vessel ischemic disease. 6. Mild to moderate carotid stenosis. RECOMMENDATION: The patient does appear to have suffered an acute ischemic stroke, likely involving the left middle cerebral artery or posterior circulation involving the thalamus. Her CT scan of the brain showed no acute intracranial abnormalities. I will order an MRI of the brain without contrast. I will pre treat her with Ativan IV as she does report a history of claustrophobia. I will order a fasting lipid panel, EEG, and serum homocystine level. Continue Plavix and Lipitor at the current doses. Continue IV hydration as tolerated. The patient reports that she needs to travel soon on a trip out of [facility]. From a neurology standpoint, I recommend holding off on traveling at this time. I will continue to follow with you. Further recommendations to follow. Thank you, Dr. Beltran for allowing me to participate in the care of your patient. If you have any questions, please feel free to contact me. MMODL / IJN: [id number] /
[2018-09-04] MEDS: MONTELUKAST 10 MG TAB PO SCH (20:43)
[2018-09-04] MEDS: OXYBUTYNIN 10 MG TAB.ER.24 PO SCH (20:44)
[2018-09-04] MEDS: MELATONIN 3 MG TABLET PO PRN (20:45)
[2018-09-04] MEDS: ATORVASTATIN 10 MG TAB PO SCH (20:48)
[2018-09-04] MEDS: LORATADINE 10 MG TAB PO SCH (20:48)
[2018-09-04] MEDS: CALCIUM CARBONATE 500 MG CHEWABLE PO PRN (20:49)
[2018-09-05] MEDS: ONDANSETRON 4 MG/2 ML VIAL IVP PRN (04:46)
[2018-09-05] MEDS: ACETAMINOPHEN TAB 325 MG TAB PO PRN ×3 (04:49→20:56)
[2018-09-05 07:09] LABS: Cholesterol 154 mg/dL (<200); HDL Cholesterol 69 mg/dL (40-60); LDL Cholesterol,Calculated 52 mg/dL (0-99); Triglycerides 167 mg/dL (<150)
[2018-09-05] MEDS ORDERED: LORazepam 2 MG/ML INJ IV STA (08:07)
[2018-09-05] MEDS: CALCIUM CARBONATE 500 MG CHEWABLE PO PRN ×2 (08:12→22:03)
[2018-09-05] MEDS: amLODIPine 5 MG TAB PO SCH (08:12)
[2018-09-05] MEDS: LORATADINE 10 MG TAB PO SCH (08:13)
[2018-09-05] MEDS: PANTOPRAZOLE 40 MG/10 ML VIAL IV SCH (08:13)
[2018-09-05] MEDS: CLOPIDOGREL 75 MG TAB PO SCH (08:13)
[2018-09-05] MEDS: ATORVASTATIN 10 MG TAB PO SCH (08:13)
[2018-09-05] MEDS: LACTOBACILLUS ACIDOPH & BULGAR 1 EACH PACKET PO SCH (08:13)
[2018-09-05] MEDS: ALPRAZolam 0.25 MG TAB PO SCH ×3 (08:14→20:56)
[2018-09-05] MEDS: SPIRONOLACTONE 25 MG TAB PO SCH ×2 (08:14→20:56)
[2018-09-05] MEDS: LACTULOSE 20 GM/30 ML CUP PO SCH ×3 (08:14→20:49)
[2018-09-05] MEDS: MULTIVITAMINS, THERA 1 EACH TAB PO SCH (08:14)
--- NOTE | 2018-09-05 09:22 | MR ---
EXAMINATION TYPE: MR brain wo con DATE OF EXAM: 09/05/2018 COMPARISON: Prior MRI brain August 22, 2015. CT brain from 2 days earlier. HISTORY: CVA per order. Acute onset left-sided body weakness and numbness for neuro deficits on admis fanny 2 days earlier. TECHNIQUE: Multiplanar, multisequence imaging of the brain and brainstem is performed without IV cont rast. FINDINGS: Diffusion weighted images demonstrate no evidence of a recent infarct or other diffusion abnormality. There is no worrisome extra-axial fluid collection. The ventricular system and cisternal spaces are normal in size and appearance. The brain volume is age appropriate. Confluent areas of T2 hyperinten sity in the seen throughout the deep and periventricular white matter bilaterally remain present. Mul tifocal areas of T2 hyperintensity superficial white matter bilaterally are redemonstrated. Midline structures demonstrate normal morphology. The craniocervical junction appears within normal limits. Normal vascular flow voids are present. The visualized sinuses are clear and the globes are i ntact. IMPRESSION: 1. No evidence of a recent infarct. 2. Fairly advanced nonspecific white matter changes presumed product of chronic small vessel ischemic change not significantly changed from 2015 MRI.
[2018-09-05] MEDS: SODIUM CHLORIDE 0.9% 1,000 ML IV SCH (15:33)
[2018-09-05] MEDS: MELATONIN 3 MG TABLET PO PRN (20:55)
[2018-09-05] MEDS: MONTELUKAST 10 MG TAB PO SCH (20:59)
--- NOTE | 2018-09-05 21:10 | P.PN ---
Subjective Progress Note Date: 09/05/18 Patient is a pleasant 67-year-old female who is being followed by the neurology service for possible stroke. Patient had sudden onset of numbness and tingling involving her right side. Patient states this is not the first time it happened. Patient states this happens when she is very anxious. Patient reports extreme family situation involving the Court and she is extremely anxious about this. Patient came to [facility] evaluation. Computed tomography scan of the brain was done which showed advanced small vessel ischemic changes. CT angiogram of the brain was done which was normal. CT angiogram of the neck showed less than 50% stenosis involving bilateral internal carotid arteries. MRI of the brain did not reveal any evidence of acute infarct. The patient is on Plavix 75 mg daily at home. She is also on statin therapy. At the time of my evaluation, patient is resting comfortably in bed and appears to be in no acute distress. Patient states numbness and tingling has improved but still comes and goes. Objective - Vital Signs Vital signs: Vital Signs Temp 97.6 F 09/05/18 16:00 Pulse 88 09/05/18 16:00 Resp 18 09/05/18 16:00 BP 126/62 09/05/18 16:00 Pulse Ox 98 09/05/18 16:00 Intake & Output 09/05/18 09/05/18 09/06/18 06:59 18:59 06:59 Intake Total 465 Balance 465 Intake: Intake, IV Titration 0 Amount Sodium Chloride 0.9% 1, 0 000 ml @ 20 mls/hr IV . Q24H [facility] Rx#:[id number] Oral 465 Other: Voiding Method Toilet Toilet # Voids 1 4 # Bowel Movements 2 - Exam PHYSICAL EXAM: GENERAL APPEARANCE: Patient is a well-developed, female who appears to be in no acute distress. HEENT: Normocephalic, atraumatic, no facial asymmetry is seen. Neck is supple with no masses felt. CARDIOVASCULAR: Regular rate and rhythm. ABDOMEN: Nontender, nondistended. EXTREMITIES: Show no edema or clubbing. NEUROLOGICAL EXAM: Patient is awake, alert, and oriented 3. Speech and language are normal. Strength is full in all 4 extremities. Sensory exam is normal to light touch in all 4 extremities. No facial asymmetry seen on cranial nerve testing. No tremors or seizure-like activity noted. - Labs CBC & Chem 7: 09/03/18 16:02 09/03/18 16:02 Labs: Abnormal Lab Results - Last 24 Hours (Table) 09/05/18 Range/Units 06:20 Triglycerides 167 H (<150) mg/dL HDL Cholesterol 69 H (40-60) mg/dL Assessment and Plan Plan: Impression: 1. Right-sided numbness 2. Hypertension 3. Dyslipidemia 4. Small vessel ischemic disease 5. Mild to moderate carotid stenosis Recommendation: The patient continues to have tingling sensation of the right upper extremity. Patient states this has happened in the past when she gets extremely anxious. As mentioned above, patient has a serious family crisis and she states she is extremely anxious about this. Computed tomography scan of the brain showed no acute abnormality. MRI of the brain showed no evidence of acute infarct. Lipid panel showed elevated triglycerides with an HDL of 69. Serum homocystine level was within normal limits. EEG was done and results are pending. Continue Plavix and Lipitor at current doses. Continue neurological checks. Patient is stable from a neurological standpoint for discharge. I will continue to follow with you on an as-needed basis. Feel free to call with any questions or concerns. I performed an examination of the patient and discussed the management with the PARTITION MAKING MACHINE OPERATOR. I have reviewed the PARTITION MAKING MACHINE OPERATOR notes and agree with the findings and plan of care.
[2018-09-05] MEDS: OXYBUTYNIN 10 MG TAB.ER.24 PO SCH (21:21)
[2018-09-06] MEDS: ONDANSETRON 4 MG/2 ML VIAL IVP PRN ×3 (00:59→21:25)
--- NOTE | 2018-09-06 03:55 | HP ---
HISTORY AND PHYSICAL DATE OF ADMISSION: 09/03/2018 HISTORY OF PRESENT ILLNESS: This is a 67-year-old white female who was brought to the emergency room with complaints of sudden onset of numbness and tingling of her right face and right side and she has a history of CVA and TIA's in the past and the patient was evaluated in the ER. She had a CT scan of the brain, which did not show any acute changes and she also had a CT angio of the brain that also did not show any acute changes, but there was evidence of widespread chronic microvascular ischemic changes. Her CBC showed a WBC count of 6.5, hemoglobin 14.6, and platelet count 276,000. Sodium 139, potassium 4.5, BUN 17, creatinine 0.68 and troponin less than 0.012. Chest x-ray did not show any acute process and EKG also did not show any acute changes. The patient continued to have symptoms in the ER of numbness and tingling of the right face and extremities. The patient was admitted to the hospital for further evaluation and treatment. PAST MEDICAL HISTORY: Reveals that she has multiple chronic medical problems. She has history of recurrent TIAs and CVAs in the past. She also has a history of irritable bowel syndrome and she has chronic diarrhea and constipation on and off. She has hypertensive cardiovascular disease and also she has severe anxiety disorder and gastroesophageal reflux disease and hyperlipidemia. ALLERGIES: SHE IS ALLERGIC TO AMOXICILLIN, CEFTIN, AUGMENTIN, AND BENTYL, LEVAQUIN, TRAMADOL. CURRENT MEDICATIONS: Include Tylenol 650 mg p.o. q.6 hours p.r.n., Xanax 0.25 mg p.o. t.i.d., Norvasc 5 mg p.o. daily, Lipitor 10 mg p.o. daily, Tums t.i.d. p.r.n., Plavix 75 mg p.o. daily, lactulose 20 g p.o. t.i.d., Claritin 10 mg p.o. daily, Antivert 50 mg p.o. daily, melatonin 3 mg p.o. q.h.s. p.r.n., Singulair 10 mg p.o. daily, oxybutynin 10 mg p.o. daily q.h.s., Protonix 40 mg p.o. daily, spironolactone 25 mg p.o. b.i.d. She also takes multivitamins. FAMILY HISTORY: Strongly positive for heart disease and arthritis and anxiety. REVIEW OF SYSTEMS: The patient denies any headache. She is extremely anxious and nervous. Appetite has been good. Has recurrent diarrhea and also has constant constipation on and off. She has no chest pain. She has cough on and off and also she is known to have asthma and COPD. She has abdominal pain on and off. She has no polyuria, dysuria, she is on oxybutynin for control of for bladder. She has neurological symptoms as mentioned before, numbness and tingling of the face and right side of the face and right extremities. PHYSICAL EXAMINATION: Reveals a 67-year-old white female and the patient was seen on 09/03/2018. She is alert and oriented, but extremely anxious and nervous. She is still complaining of the numbness in her face and right upper and lower extremities. Temperature 98.6, pulse 98 per minute, regular. Blood pressure 136/80. Examination of the ENT negative. Neck is supple. There is no jugular venous distention. There is no goiter. There is no carotid bruit. Heart is in sinus rhythm. LUNGS: Clear to auscultation and percussion. ABDOMEN: Soft and nontender. There is no mass palpable. Examination of the lower extremities reveal no pitting edema. Neurologic examination does not reveal any localizing signs other than her feeling of numbness and tingling right-side of the face and also right upper and lower extremities. IMPRESSION: 1. Acute onset of right-sided numbness and tingling involving the right side of the face and right extremities. 2. Possible transient ischemic attack. Rule out cerebrovascular accident recurrent. 3. History of hypertensive cardiovascular disease. 4. Severe anxiety and nervousness. 5. Hypertensive cardiovascular disease. 6. Irritable bowel syndrome. 7. Gastroesophageal reflux disease. 8. Hypertension. 9. Hyperlipidemia. PLAN: Patient will be admitted to hospital. We will monitor her neurological status. We will place her back on her previous home medications. We will get a neurology consultation and Dr. Wray has already been consulted. Prognosis is guarded. The diagnosis, prognosis and therapeutic plans were discussed in detail with the patient. MMODL / IJN: [id number] /
--- NOTE | 2018-09-06 04:01 | PN ---
PROGRESS NOTE DATE OF SERVICE: 09/04/2018 This is a 67-year-old white female who has a past history of CVA and TIA and the patient was brought to the emergency room with sudden onset of numbness and tingling of the right face and right extremities. The patient was evaluated in the ER and CT scan and CT angio came out essentially negative and there was significant small vessel ischemic changes. The patient was admitted to the hospital for further evaluation and treatment. She has been placed back on her previous home medications and since admission, her vital signs are stable. She is extremely nervous and anxious and heart is in sinus rhythm. Lungs are clear. There is no acute cardio or respiratory problems, but she still has symptoms of numbness and tingling of the right side and but she thinks that it is slightly better now. Neurology consultation has been requested and Dr. Wray is going to see her today. Prognosis is guarded. MMODL / IJN: [id number] /
--- NOTE | 2018-09-06 04:16 | PN ---
PROGRESS NOTE DATE OF SERVICE: 09/05/2018 This is a 67-year-old white female who was admitted with a symptoms of TIA and she came in with a sudden onset of numbness and tingling of the right face and right extremity. In the ER, her CT and CT angio did not show any acute process, but rather extensive chronic small-vessel ischemic changes. The patient was admitted to the hospital for further evaluation and treatment. The patient has been placed back on her previous home medications. She is extremely anxious and nervous and this is being controlled with Ativan. Neurology consultation was obtained. Dr. Wray saw the patient yesterday and he feels that the patient has an acute ischemic stroke and he has scheduled her for a MRI. The patient's neurologic symptoms shows some improvement and her vital signs are stable. Heart is in sinus rhythm. Lungs are clear. There is no acute cardio or respiratory problems. The MRI report is pending and we will continue to monitor her neurological status and continue the current medications and when her condition is stable and when it is okay with Dr. Wray, she will be discharged home. MMODL / IJN: [id number] /
[2018-09-06] MEDS: ALPRAZolam 0.25 MG TAB PO SCH ×3 (08:17→20:51)
[2018-09-06] MEDS: amLODIPine 5 MG TAB PO SCH (08:17)
[2018-09-06] MEDS: LORATADINE 10 MG TAB PO SCH (09:34)
[2018-09-06] MEDS: CLOPIDOGREL 75 MG TAB PO SCH (09:34)
[2018-09-06] MEDS: LACTOBACILLUS ACIDOPH & BULGAR 1 EACH PACKET PO SCH (09:35)
[2018-09-06] MEDS: ATORVASTATIN 10 MG TAB PO SCH (09:35)
[2018-09-06] MEDS: LACTULOSE 20 GM/30 ML CUP PO SCH ×3 (09:35→20:51)
[2018-09-06] MEDS: MULTIVITAMINS, THERA 1 EACH TAB PO SCH (09:35)
[2018-09-06] MEDS: SPIRONOLACTONE 25 MG TAB PO SCH ×2 (09:35→20:51)
[2018-09-06] MEDS: PANTOPRAZOLE 40 MG TABLET PO SCH (09:35)
[2018-09-06] MEDS: MECLIZINE 25 MG TAB PO PRN (11:36)
[2018-09-06] MEDS: CALCIUM CARBONATE 500 MG CHEWABLE PO PRN (11:36)
--- NOTE | 2018-09-06 15:23 | PN ---
PROGRESS NOTE DATE OF SERVICE: 09/06/2018 This is a 67-year-old white female who was admitted to the hospital through the emergency room with complaints of sudden onset of numbness and tingling of the right side of the face and right extremities. The patient also had extreme anxiety and nervousness. The patient has a past history of CVA and recurrent TIAs. The patient was evaluated in the ER and. Her CT scan and CT angio of the brain came out as without any acute process. The patient was admitted to hospital for further evaluation and treatment. Her neurological status was monitored and she was seen by Dr. Wray in consultation for neurological evaluation. The patient had an MRI of the brain which also did not show any acute process, but there were extensive small vessel ischemic changes. The patient was placed back on her previous medications. Neurologically her condition has stabilized. Patient's vital signs are stable. Heart is in sinus rhythm. Lungs are clear. There are no acute cardio or respiratory problems. However, the patient is extremely nervous and anxious and also apparently she has some signs of depression. The patient also is being continued on her anxiety medications. Her anxiety and her mental status were discussed in detail with the patient. I recommended that she have a psychiatric consultation and she is agreeable, so we will consult a psychiatrist to evaluate her for her severe anxiety, nervousness and also depression. The prognosis is guarded. The diagnosis, prognosis and therapeutic plans were discussed in detail with the patient today. AHMET / SHELLY: [id number] /
[2018-09-06] MEDS: SODIUM CHLORIDE 0.9% 1,000 ML IV SCH (15:29)
[2018-09-06] MEDS: OXYBUTYNIN 10 MG TAB.ER.24 PO SCH (20:51)
[2018-09-06] MEDS: MONTELUKAST 10 MG TAB PO SCH (20:51)
[2018-09-06] MEDS: MELATONIN 3 MG TABLET PO PRN (21:25)
[2018-09-07] MEDS: ONDANSETRON 4 MG/2 ML VIAL IVP PRN ×2 (06:14→16:16)
[2018-09-07] MEDS: PANTOPRAZOLE 40 MG TABLET PO SCH (07:30)
[2018-09-07] MEDS: CLOPIDOGREL 75 MG TAB PO SCH (07:30)
[2018-09-07] MEDS: ALPRAZolam 0.25 MG TAB PO SCH ×3 (07:30→21:00)
[2018-09-07] MEDS: ATORVASTATIN 10 MG TAB PO SCH (07:31)
[2018-09-07] MEDS: LACTOBACILLUS ACIDOPH & BULGAR 1 EACH PACKET PO SCH (07:31)
[2018-09-07] MEDS: amLODIPine 5 MG TAB PO SCH (07:31)
[2018-09-07] MEDS: SPIRONOLACTONE 25 MG TAB PO SCH ×2 (07:31→21:00)
[2018-09-07] MEDS: MULTIVITAMINS, THERA 1 EACH TAB PO SCH (07:32)
[2018-09-07] MEDS: LACTULOSE 20 GM/30 ML CUP PO SCH ×3 (07:32→21:00)
[2018-09-07] MEDS: LORATADINE 10 MG TAB PO SCH (07:32)
[2018-09-07] MEDS ORDERED: NA PHOS,M-B/NA PHOS,DI-BA 133 ML ENEMA RECTAL ONE (09:09)
--- NOTE | 2018-09-07 10:10 | XR ---
EXAMINATION TYPE: XR abdomen 2V , 2 VIEWS DATE OF EXAM ORDERED: 09/07/2018 HISTORY: abdominal pain . COMPARISON: Previous study dated 08/24/2018. FINDINGS: The lung bases are clear. Within the abdomen, the abdominal gas pattern is within normal limits. There is no evidence of obstru ction or free air. There are vascular calcifications within the pelvis. There are multiple air-fluid levels. IMPRESSION: FINDINGS CONSISTENT WITH GENERALIZED ILEUS.
--- NOTE | 2018-09-07 13:21 | CONS ---
CONSULTATION REASON FOR CONSULTATION: Abdominal pain, constipation. HISTORY OF PRESENT ILLNESS: The hospital is a 67-year-old pleasant white female admitted to the hospital with acute onset of numbness and tingling involving the right side of her body. The patient was subsequently admitted to the hospital. Neurology was consulted. She had a CT of the head done that was unremarkable. Neurology was consulted, was seen by Dr. Wray. Presently maintained on aspirin and Plavix. While in the hospital, she has been complaining of abdominal pain and abdominal bloating associated with severe constipation. The patient is very well known to me from outpatient setting. She was diagnosed with irritable bowel syndrome several years ago. Recently, her symptoms have been progressively getting worse. She was treated in the past with MiraLAX. Patient was started on Lactulose for the chronic constipation and still continues to have ongoing symptoms. Today she complains of diffuse abdominal pain and abdominal bloating. She had a bowel movement last night after she took some lactulose but caused more abdominal symptoms. She denies any nausea, vomiting. No fever, chills, night sweats. PAST MEDICAL HISTORY: Significant for hypertension, severe anxiety, history of CVA in the past, GERD, hyperlipidemia, osteoarthritis, portable bowel syndrome, vertigo. PAST SURGICAL HISTORY: Breast surgery. MEDICATIONS: The medications include: Imodium, Norvasc, , Antivert, oxybutynin, TUMs, Tylenol Arthritis, Lipitor, Charo, Aldactone, Nasacort, Xanax, Ativan, magnesium citrate, Singulair, multivitamin, Compazine. ALLERGIES: Allergies to Bentyl, Levbid, Levaquin, Augmentin. REVIEW OF SYSTEMS: CARDIOPULMONARY: No chest pain, no shortness of breath. GENITOURINARY: No dysuria, hematuria. MUSCULOSKELETAL: Unremarkable. SKIN: Unremarkable. ENDOCRINE: Unremarkable. NEUROLOGY: As mentioned above. ENT/VISION: Unremarkable. CONSTITUTIONAL: No recent weight loss. No fever, chills, night sweats. PSYCHIATRIC: History of severe anxiety. PHYSICAL EXAMINATION: She appears comfortable. No acute distress. Vital signs are stable. Blood pressure is 126/74, pulse rate 90, temperature 98.2. HEENT examination is unremarkable. Conjunctivae pink. Sclerae anicteric. Oral cavity, no lesions. NECK: No JVD or lymph node enlargement. Chest was clear to auscultation. HEART: Regular rate and rhythm. Abdomen is soft. Bowel sounds are positive. No organomegaly. EXTREMITIES: No pedal edema. SKIN: No rashes. NEUROLOGIC: Alert and oriented x3. No focal deficits. LAB DATA: Labs at the time of admission were all within normal limits. IMPRESSION: 1. This is a lady with history of irritable bowel syndrome-constipation predominant diagnosed several years ago and lately her symptoms have been progressively getting worse with ongoing anxiety. She has been managed on an outpatient basis with various laxatives and recently was started on lactulose 30 mL twice daily with which she is having a multitude of side effects including abdominal bloating, worsening abdominal cramping and persistent constipation. 2. Right-sided tingling, numbness for which Neurology has been consulted. No evidence of CVA. She is on aspirin, Plavix and Dr. Wray following the patient closely. RECOMMENDATION: 1. I agree with an abdominal x-ray. 2. Give her a Fleet enema today. 3. I advised the patient to stop the lactulose and use MiraLAX 1 scoop as needed and titrate the dose based on the bowel movement. She can also use Fleet enema as needed. 4. I agree with psychiatric consultation for management of her severe anxiety causing most of her GI symptoms. Thank you for this consultation. MMODL / IJN: [id number] /
[2018-09-07] MEDS ORDERED: POLYETHYLENE GLYCOL 3350 17 GM POWD.PACK PO PRN (15:26)
[2018-09-07] MEDS: SODIUM CHLORIDE 0.9% 1,000 ML IV SCH (15:27)
--- NOTE | 2018-09-07 20:27 | P.CN ---
Psychiatric Consult - . Consult date: 09/07/18 Consult:: 09/07/18 20:27 Identifying Information 67-year-old female with history of CVA was admitted with stroke like symptoms numbness to the rightside of body. Psychiatry was consulated to evaluate patient for anxiety and depression. Chief complaint Feeling very anxious and depressed. History of presenting illness Patient says her brother was involved in a law suit and wants her to testify. Patient states she has multiple medical problems and states she is not stable enough to fly to [place] to testify. She says she suffers from diverticulosis and complains of severe nausea and upset stomach. She states her anxiety and depression are making her gastro intestinal problems worse. She claims the xanax is not working well for her. She reports feeling shaky/worried most of the time. She is worried that if her dies before her she wont be able to support herself. She reports feeling very sad , hopeless and helpless. She reports loss of interest in doing things and claims she doesnt really care even if she dies. She however denies current suicidal or homicidal ideations. She says she is Denominational and does not want to kill herself. She denies symptoms of psychosis. Past psychiatric history She claims to have received psychiatric treatment forty years ago. She denies psychiatric hospitalizations. She claims to have taken valiums for years. She reports to have stopped taking valiums few months ago as she felt they were not helping her. She also report being prescribed Prozac by her front desk officer few years ago when she was going through her hormonal changes. Prozac made her suicidal. Substance use history Denies Legal problems Unknown Family psychiatric treatment history Unknown Medical history IBS, Diverticulosis, COPD, CVA/TIA, GERD/Reflux, Hyperlipidemia, Hypertension, Osteoarthritis (OA) Mental status exam Patient appears her stated age in fair grooming and hygiene. She is dressed in hospital gown. She reports feeling very anxious and depressed. Her thought process is goal directed. She denies current auditory or visual hallucinations. She denies paranoia. She is alert and orientedx4. She denies current suicidal or homicidal ideations. Diagnosis Major depression recurrent type Plan Patient refuses to take Zoloft due to its gastrointestinal side effects. She did not tolerate Prozac well in the past. She is willing to try wellbutrin. She was informed that wellbutrin might worsen her anxiety. Will recommend wellbutrin 75mg po qday. If she tolerates the medication well the dose can be titrated. Will recommend out patient psychiatry follow up. Consult psychiatry if needed Thank you for letting us participate in this patients care.
[2018-09-07] MEDS: OXYBUTYNIN 10 MG TAB.ER.24 PO SCH (21:00)
[2018-09-07] MEDS: MONTELUKAST 10 MG TAB PO SCH (21:00)
[2018-09-07] MEDS: MELATONIN 3 MG TABLET PO PRN (22:04)
[2018-09-08] MEDS: ONDANSETRON 4 MG/2 ML VIAL IVP PRN ×2 (01:23→11:09)
[2018-09-08 07:47] VITALS: BP 134/82; PULSE 89; RESP 16; TEMP 99
[2018-09-08] MEDS: LACTULOSE 20 GM/30 ML CUP PO SCH (08:16)
[2018-09-08] MEDS: ALPRAZolam 0.25 MG TAB PO SCH (08:18)
[2018-09-08] MEDS: LACTOBACILLUS ACIDOPH & BULGAR 1 EACH PACKET PO SCH (08:18)
[2018-09-08] MEDS: SPIRONOLACTONE 25 MG TAB PO SCH (08:18)
[2018-09-08] MEDS: CLOPIDOGREL 75 MG TAB PO SCH (08:19)
[2018-09-08] MEDS: LORATADINE 10 MG TAB PO SCH (08:19)
[2018-09-08] MEDS: PANTOPRAZOLE 40 MG TABLET PO SCH (08:19)
[2018-09-08] MEDS: amLODIPine 5 MG TAB PO SCH (08:19)
[2018-09-08] MEDS: MULTIVITAMINS, THERA 1 EACH TAB PO SCH (08:19)
[2018-09-08] MEDS: ATORVASTATIN 10 MG TAB PO SCH (08:19)
--- NOTE | 2018-09-08 09:39 | EEG ---
ELECTROENCEPHALOGRAM REPORT DATE OF TESTIN09/05/2018 REASON FOR TESTING: Stroke. DESCRIPTION OF THE PROCEDURE: This EEG was performed using a 21 channel digital electroencephalograph, following international 10-20 system. DESCRIPTION OF THE RECORDING: From the beginning of the tracing, and with patient's eyes closed, the background rhythm was mostly consisting of 9 Hz alpha frequency in the posterior occipital leads. No obvious asymmetry is seen. Occasional lead artifacts and movement artifacts are seen. Photic stimulation was performed with no driving response seen. No pathological waves were elicited. Hyperventilation was not performed. The patient does reach stage II of sleep during the tracing and occasional sleep spindles are seen. No epileptiform discharges were seen. Her EKG lead showed a regular rate and rhythm. INTERPRETATION: This asleep and awake EEG can be considered within normal limits. There is no asymmetry seen. No epileptiform discharges were noticed. The absence of epileptiform discharges does not rule out the diagnosis of epilepsy; therefore clinical correlation is recommended. MMLINSEY / SHELLY: [id number] /
[2018-09-08] MEDS: MECLIZINE 25 MG TAB PO PRN (09:44)
[2018-09-08] MEDS: CALCIUM CARBONATE 500 MG CHEWABLE PO PRN (09:44)
[2018-09-08] MEDS ORDERED: SENNOSIDES-DOCUSATE SODIUM 1 EACH TAB PO SCH (09:45)
--- NOTE | 2018-09-08 09:47 | P.PN ---
Subjective Progress Note Date: 09/08/18 Principal diagnosis: Nausea constipation 67-year-old female admitted with acute numbness tingling right side of her body as well as anxiety nausea constipation. Seen by psychiatry. She is passing bowel movements. Reports increased bloatedness gassiness with lactulose and MiraLAX. Denies abdominal pain. Objective - Vital Signs Vital signs: Vital Signs Temp 99.0 F 09/08/18 07:00 Pulse 89 09/08/18 07:00 Resp 16 09/08/18 07:00 BP 134/82 09/08/18 07:00 Pulse Ox 96 09/08/18 07:00 Intake & Output 09/07/18 09/08/18 09/08/18 18:59 06:59 18:59 Intake Total 1800 950 Balance 1800 950 Intake: Oral 1800 950 Other: Voiding Method Toilet # Voids 1 2 # Bowel Movements 2 - Exam General appearance: The patient is alert, oriented, in no acute distress. HET: Head is normocephalic and atraumatic. Pupils are equal and reactive. Oropharynx is clear without lesions. Neck: Supple without lymphadenopathy. Trachea midline. Heart: S1 S2. Regular rate and rhythm. Lungs: No crackles or wheezes are heard. Abdomen: Soft, nontender, nondistended with bowel sounds. No peritoneal signs. No palpable organomegaly or masses. Extremities: Normal skin color and turgor. No cyanosis, rash, ulceration, clubbing, or edema. Radial and pedal pulses are 2/4 bilaterally. Neurological: No focal deficits. Strength and sensation are grossly intact. - Labs CBC & Chem 7: 09/03/18 16:02 09/03/18 16:02 Assessment and Plan Assessment: Impression: 1. History of IBS with ongoing anxiety intermittent nausea constipation and abdominal bloatedness. 2. Right-sided tingling and numbness neurology consulted. 3. Anxiety psychiatry consulted. Plan: Recommendations: 1. 1/2-1 scoop of MiraLAX daily as tolerated; may increase to twice daily dosing. Hold lactulose. OTC Fleet enema as needed. Encourage ambulation increase fiber in diet. Follow up in GI office after discharge. Assessment and plan a care discussed with Dr. Roblero
[2018-09-08 11:16] VITALS: BMI 24.4
--- NOTE | 2018-09-08 15:15 | PN ---
PROGRESS NOTE DATE OF SERVICE: 09/07/2018 This is a 67-year-old white female who was admitted to the hospital with sudden onset of numbness and tingling of right and extremities and patient has a history of recurrent CVA and TIA in the past. Patient was seen by neurologist Dr. Wray and she had an MRI and CT angio and CT scan of the brain, did not show any . Dr. Wray felt that she had a mild acute ischemic stroke and patient also has multiple other medical problems. She has irritable bowel syndrome and recurrent episodes of abdominal pain and diarrhea and she was seen by Dr. Edwin Rueda and she recommend discontinuing the lactulose and placed her on MiraLax and also Fleets enema. Patient has severe anxiety and also she has mental depression and will get a psychiatric consultation before discharging the patient. Her vital signs are otherwise stable. She has no acute cardio or respiratory problems. Prognosis is guarded. The diagnosis, prognosis and therapeutic plans were discussed in detail with the patient. AHMET / DAVIDN: [id number] /
[2018-09-09] MEDS ORDERED: POLYETHYLENE GLYCOL 3350 17 GM POWD.PACK PO SCH (09:00)
== END 2018-09-08 13:05 | disposition home or self-care (01) | DRG 66 ==
LOC: EC 15:21 → 3SCARD 17:24 → 4MS4W 09-06 00:51
PROVIDERS: ADMIT Internal Medicine; ATTEND Internal Medicine
DX: I63.9 Cerebral infarction, unspecified (principal); E78.5 Hyperlipidemia, unspecified; E83.52 Hypercalcemia; F32.9 Major depressive disorder, single episode, unspecified; F41.9 Anxiety disorder, unspecified; I11.9 Hypertensive heart disease without heart failure; I65.29 Occlusion and stenosis of unspecified carotid artery; J44.9 Chronic obstructive pulmonary disease, unspecified; K21.9 Gastro-esophageal reflux disease without esophagitis; K58.0 Irritable bowel syndrome with diarrhea; K59.09 Other constipation; N32.81 Overactive bladder; D25.9 Leiomyoma of uterus, unspecified; K57.90 Diverticulosis of intestine, part unspecified, without perforation or abscess without bleeding; M19.90 Unspecified osteoarthritis, unspecified site; R73.9 Hyperglycemia, unspecified; H91.90 Unspecified hearing loss, unspecified ear; R42 Dizziness and giddiness; I73.9 Peripheral vascular disease, unspecified; Z87.891 Personal history of nicotine dependence; Z86.73 Personal history of transient ischemic attack (TIA), and cerebral infarction without residual deficits; Z79.02 Long term (current) use of antithrombotics/antiplatelets; Z79.899 Other long term (current) drug therapy; Z88.1 Allergy status to other antibiotic agents; Z88.5 Allergy status to narcotic agent; Z88.0 Allergy status to penicillin; Z88.8 Allergy status to other drugs, medicaments and biological substances; Z82.49 Family history of ischemic heart disease and other diseases of the circulatory system
CPT/HCPCS: 36415; 70450; 70496; 70498; 70551; 71046; 74019; 80053; 80061; 81001; 82550; 82553; 83090; 84484; 85025; 85610; 85730; 93005; 95819; 96360; 99285

== ENCOUNTER 2019-04-05 12:37 | Observation (INO) | payer MEDICARE, BC ==
--- NOTE | 2019-04-05 12:59 | ED ---
Chest Pain HPI - General Chief Complaint: Chest Pain Stated Complaint: CHEST PAIN Time Seen by Provider: 04/05/19 12:58 Source: patient, RN notes reviewed, old records reviewed Mode of arrival: ambulatory Limitations: no limitations - History of Present Illness Initial Comments: This is a 68-year-old female the ER for evaluation. Patient presents today for evaluation regarding chest pain history of high blood pressure high cholesterol. Patient does continue to current chest pain. No shortness of breath no diaphoresis no nausea vomiting or diarrhea. MD Complaint: chest pain -: hour(s) Onset: during rest Pain Location: substernal, left chest Pain Radiation: LUE Severity: mild Severity scale (1-10): 2 Quality: heaviness Consistency: constant Improves With: nothing Worsens With: nothing Anginal Symptoms: dyspnea Treatments Prior to Arrival: none - Related Data Home Medications Medication Instructions Recorded Confirmed Clopidogrel [Plavix] 75 mg PO DAILY 08/20/15 04/05/19 Fluocinolone Acetonide Oil 2 drop BOTH EARS BID PRN 08/20/15 04/05/19 [Fluocinolone Acetonide Oil (Otic)] Loperamide [Imodium] 2 mg PO QID PRN 08/20/15 04/05/19 amLODIPine [Norvasc] 5 mg PO DAILY 08/20/15 04/05/19 L.acidoph,Paracasei, B.lactis 1 cap PO DAILY 08/21/15 04/05/19 [Probiotic] Meclizine [Antivert] 25 - 50 mg PO DAILY PRN 08/21/15 04/05/19 Oxybutynin Chloride [Oxybutynin 10 mg PO DAILY 08/21/15 04/05/19 Chloride ER] Naphazoline HCl/Glycerin [Clear 1 - 2 drops BOTH EYES DAILY PRN 06/12/16 04/05/19 Eyes Max Redness Rlf Drp] Acetaminophen [Tylenol Arthritis] 650 mg PO Q4-6H PRN 12/17/16 04/05/19 Atorvastatin Calcium [Lipitor] 10 mg PO DAILY 12/17/16 04/05/19 Fexofenadine HCl [Charo Allergy] 180 mg PO DAILY 12/17/16 04/05/19 Phenylephrine HCl/[place] Butter 1 supp RECTAL DAILY PRN 12/17/16 04/05/19 [Preparation H Suppository] Spironolactone [Aldactone] 25 mg PO BID 12/17/16 04/05/19 Triamcinolone Acetonide [Nasacort] 1 - 2 spray EA NOSTRIL DAILY PRN 12/17/16 04/05/19 ALPRAZolam [Xanax] 0.25 mg PO BID 08/24/18 04/05/19 Fleet Suppository 1 supp RECTAL DAILY PRN 08/24/18 04/05/19 LORazepam [Ativan] 0.5 mg PO BID 08/24/18 04/05/19 Magnesium Citrate 296 ml PO DAILY PRN 08/24/18 04/05/19 Melatonin 3 mg PO HS PRN 08/24/18 04/05/19 Montelukast [Singulair] 10 mg PO HS 08/24/18 04/05/19 Multivitamins, Thera [Multivitamin 1 tab PO DAILY 08/24/18 04/05/19 (formulary)] Prochlorperazine [Compazine] 5 mg PO Q6HR PRN 08/24/18 04/05/19 Restfull Legs 1 tab PO DAILY PRN 08/24/18 04/05/19 Acetaminophen-Codeine 300-30mg 1 tab PO Q8HR PRN 04/05/19 04/05/19 [Tylenol w/codeine #3] Baclofen [Lioresal] 10 mg PO Q8HR PRN 04/05/19 04/05/19 Calcium Carb/Magnesium Hydrox 1 tab PO Q2H 04/05/19 04/05/19 [Rolaids Chewable Tablet] Ondansetron HCl [Zofran] 8 mg PO Q6H PRN 04/05/19 04/05/19 Polyethylene Glycol 3350 [Miralax] 17 gram PO DAILY 04/05/19 04/05/19 Ubidecarenone [Co Q-10] 100 mg PO DAILY 04/05/19 04/05/19 buPROPion [Wellbutrin] 75 mg PO BID 04/05/19 04/05/19 Previous Rx's Medication Instructions Recorded Sennosides-Docusate Sodium 2 tab PO DAILY #60 tablet 12/21/16 [Senokot-S] Metoclopramide [Reglan] 10 mg PO ACHS #15 tab 10/14/18 Allergies Allergy/AdvReac Type Severity Reaction Status Date / Time amoxicillin [From Augmentin] Allergy Unknown Verified 04/05/19 13:23 cefuroxime axetil Allergy Unknown Verified 04/05/19 13:23 [From Ceftin] clavulanic acid Allergy Unknown Verified 04/05/19 13:23 [From Augmentin] dicyclomine [From Bentyl] Allergy Unknown Verified 04/05/19 13:23 hyoscyamine [From Levbid] Allergy Unknown Verified 04/05/19 13:23 levofloxacin [From Levaquin] Allergy Unknown Verified 04/05/19 13:23 tramadol Allergy Unknown Verified 04/05/19 13:23 Review of Systems ROS Statement: Those systems with pertinent positive or pertinent negative responses have been documented in the HPI. ROS Other: All systems not noted in ROS Statement are negative. EKG Findings - EKG Comments: EKG Findings:: EKG shows sinus rhythm rate of 70, NH 134, QRS 120, QTC 444 Past Medical History Past Medical History: CVA/TIA, GERD/Reflux, Hyperlipidemia, Hypertension, Osteoarthritis (OA) Additional Past Medical History / Comment(s): IBS, overactive bladder; vertigo, diverticulosis, uterine fibroids, [place], tia, anx /depression.seasonal allergies, sinus problems, migrainespt state she has had both the prevnar 13 and shingles vaccine not sure of date-write unable to verify dats at time of admit. History of Any Multi-Drug Resistant Organisms: None Reported Past Surgical History: Breast Surgery Additional Past Surgical History / Comment(s): egd/colonoscopy, lt breast bx Past Anesthesia/Blood Transfusion Reactions: No Reported Reaction Past Psychological History: Anxiety, Depression Smoking Status: Former smoker Past Alcohol Use History: None Reported Past Drug Use History: None Reported - Past Family History Father Family Medical History: Myocardial Infarction ([place]) Mother Family Medical History: Congestive Heart Failure (CHF) General Exam Limitations: no limitations General appearance: alert, in no apparent distress Head exam: Present: atraumatic, normocephalic, normal inspection Eye exam: Present: normal appearance, PERRL, EOMI. Absent: scleral icterus, conjunctival injection, periorbital swelling ENT exam: Present: normal exam, mucous membranes moist Neck exam: Present: normal inspection. Absent: tenderness, meningismus, lymphadenopathy Respiratory exam: Present: normal lung sounds bilaterally. Absent: respiratory distress, wheezes, rales, rhonchi, stridor Cardiovascular Exam: Present: regular rate, normal rhythm, normal heart sounds. Absent: systolic murmur, diastolic murmur, rubs, gallop, clicks GI/Abdominal exam: Present: soft, normal bowel sounds. Absent: distended, tenderness, guarding, rebound, rigid Extremities exam: Present: normal inspection, full ROM, normal capillary refill. Absent: tenderness, pedal edema, joint swelling, calf tenderness Back exam: Present: normal inspection Neurological exam: Present: alert, oriented X3, CN II-XII intact Psychiatric exam: Present: normal affect, normal mood Skin exam: Present: warm, dry, intact, normal color. Absent: rash Course Vital Signs 04/05/19 04/05/19 04/05/19 12:50 14:00 15:00 Temperature 98.4 F Pulse Rate 85 78 85 Respiratory 18 20 18 Rate Blood Pressure 146/79 122/68 135/72 O2 Sat by Pulse 98 98 97 Oximetry - Reevaluation(s) Reevaluation #1: 04/05/19 16:47 Medical record is reviewed here Reevaluation #2: 04/05/19 16:47 Patient still having chest pain Chest Pain MDM - MDM 68 female the ER for evaluation. Patient has a for evaluation of chest pain, will admit for chest pain observation Critical Care Time Critical Care Time: Yes Total Critical Care Time: 31 Disposition Clinical Impression: Chest pain, Atypical chest pain Disposition: ADMITTED IP TO THIS [facility] Condition: Undetermined Instructions (If sedation given, give patient instructions): Chest Pain (ED) Is patient prescribed a controlled substance at d/c from ED?: No Referrals: Parvez Villarreal MD [Primary Care Provider] - 1-2 days
[2019-04-05 14:13] LABS: Basophils % (A) 0 %; Eosinophils # (A) 0.1 k/uL (0-0.7); Eosinophils % (A) 1 %; HCT 42.6 % (34.0-46.0); HGB 14.6 gm/dL (11.4-16.0); Hyperchromasia Slight; Lymphocytes # (A) 1.3 k/uL (1.0-4.8); Lymphocytes % (A) 18 %; MCH 30.6 pg (25.0-35.0); MCHC 34.3 g/dL (31.0-37.0); MCV 89.2 fL (80.0-100.0); Monocytes # (A) 0.4 k/uL (0-1.0); Monocytes % (A) 5 %; Neutrophils # (A) 5.3 k/uL (1.3-7.7); Neutrophils % (A) 74 %; Platelet Count 276 k/uL (150-450); RBC 4.77 m/uL (3.80-5.40); RDW 13.6 % (11.5-15.5); WBC 7.2 k/uL (3.8-10.6)
[2019-04-05 14:18] LABS: INR 0.9 (<1.2); Partial Thromboplastin Time 23.7 sec (22.0-30.0); Prothrombin Time 9.7 sec (9.0-12.0)
[2019-04-05 14:20] LABS: Albumin 4.5 g/dL (3.5-5.0); Calcium 10.4 mg/dL (8.4-10.2); Potassium 4.2 mmol/L (3.5-5.1); Total Bilirubin 0.4 mg/dL (0.2-1.3)
--- NOTE | 2019-04-05 14:38 | XR ---
EXAMINATION TYPE: XR chest 2V DATE OF EXAM: 04/05/2019 COMPARISON: 09/03/2018 INDICATION: Chest pain TECHNIQUE: Frontal and lateral views of the chest are obtained. FINDINGS: The heart size is normal. The pulmonary vasculature is normal. The lungs are clear. IMPRESSION: 1. No acute pulmonary process.
[2019-04-05] MEDS ORDERED: SODIUM CHLORIDE 0.9% 1,000 ML IV STA (16:18)
[2019-04-05] MEDS ORDERED: MORPHINE SULFATE 4 MG/ML SYRINGE IVP STA (16:18)
[2019-04-05] MEDS: MORPHINE SULFATE 4 MG/ML SYRINGE IVP PRN ×2 (18:48→23:31)
[2019-04-05] MEDS ORDERED: ASPIRIN 81 MG PO STA (20:20)
[2019-04-05] MEDS ORDERED: NITROGLYCERIN SL TABS 0.4 MG TAB SUBLINGUAL PRN (20:20)
[2019-04-05] MEDS ORDERED: HEPARIN SODIUM,PORCINE 5,000 UNIT/ML 1 ML VIAL IV PRN (20:20)
[2019-04-05] MEDS ORDERED: HEPARIN SODIUM,PORCINE 5,000 UNIT/ML 1 ML VIAL IV ONE (20:20)
[2019-04-05] MEDS ORDERED: HEPARIN SOD,PORK IN 0.45% NACL 25,000 UNIT in 0.45% NACL 1 250ML.BAG IV SCH (20:30)
[2019-04-05 22:03] VITALS: BMI 24.1
[2019-04-05] MEDS ORDERED: MECLIZINE 25 MG TAB PO PRN (22:11)
[2019-04-05] MEDS ORDERED: ACETAMINOPHEN TAB 325 MG TAB PO PRN (22:11)
[2019-04-05] MEDS ORDERED: LOPERAMIDE 2 MG CAP PO PRN (22:11)
[2019-04-05] MEDS ORDERED: MAGNESIUM CITRATE 296 ML BOTTLE PO PRN (22:11)
[2019-04-05] MEDS: METOPROLOL TARTRATE 25 MG TAB PO SCH (23:31)
[2019-04-06 02:41] VITALS: RESP 18
[2019-04-06] MEDS: MORPHINE SULFATE 4 MG/ML SYRINGE IVP PRN (03:35)
[2019-04-06] MEDS ORDERED: buPROPion 75 MG TAB PO SCH (09:00)
[2019-04-06] MEDS ORDERED: OXYBUTYNIN 10 MG TAB.ER.24 PO SCH (09:00)
[2019-04-06] MEDS ORDERED: ASPIRIN 325 MG TAB PO SCH (09:00)
[2019-04-06] MEDS ORDERED: CLOPIDOGREL 75 MG TAB PO SCH (09:00)
[2019-04-06] MEDS ORDERED: amLODIPine 5 MG TAB PO SCH (09:00)
[2019-04-06] MEDS ORDERED: LORazepam 0.5 MG TAB PO SCH (09:00)
[2019-04-06] MEDS ORDERED: SPIRONOLACTONE 25 MG TAB PO SCH (09:00)
[2019-04-06] MEDS ORDERED: ATORVASTATIN 80 MG TAB PO SCH (09:00)
[2019-04-06] MEDS ORDERED: Acetaminophen-Codeine 300-30mg TAB PO PRN (09:41)
[2019-04-06] MEDS ORDERED: BACLOFEN 10 MG TAB PO PRN (09:41)
[2019-04-06] MEDS ORDERED: ONDANSETRON 4 MG/2 ML VIAL IVP PRN (09:42)
[2019-04-06] MEDS ORDERED: FAMOTIDINE 20 MG TAB PO SCH (09:45)
[2019-04-06] MEDS: METOPROLOL TARTRATE 25 MG TAB PO SCH (10:09)
--- NOTE | 2019-04-06 10:14 | P.CRDCN ---
History of Present Illness Consult date: 04/06/19 Chief complaint: Chest pain History of present illness: This is a 68-year-old female patient with a past medical history significant for hypertension, dyslipidemia, reflux disease, and chronic neck pain, presented to the emergency room complaining of chest discomfort. The patient stated that she has been experiencing chronic neck pain lately. As a matter of fact she underwent an MRI of the neck recently. She stated that she has been exper iencing also the pain in the chest but he thinks that the pain in the chest this coming from the neck. She clearly stated that the neck and the chest discomfort is mostly once she lay on the left side. No symptoms of shortness of breath, dizziness, heart racing, or syncope. No sweating. No nausea and no vomiting. The patient is hemodynamically stable. She underwent a workup including EKG aye wing sinus rhythm with RBBB. The chest x-ray did not show any acute abnormalities. The cardiac enzymes were checked and came in to be unremarkable. The patient stated that she saw Dr. Rueda in the office about 8 months ago. And she was told in the past that she might need to have a stress test. Past Medical History Past Medical History: CVA/TIA, GERD/Reflux, Hyperlipidemia, Hypertension, Osteoarthritis (OA) Additional Past Medical History / Comment(s): IBS, overactive bladder; vertigo, diverticulosis, uterine fibroids, [place], tia, anx /depression.seasonal allergies, sinus problems, migrainespt state she has had both the prevnar 13 and shingles vaccine not sure of date-write unable to verify dats at time of admit. History of Any Multi-Drug Resistant Organisms: None Reported Past Surgical History: Breast Surgery Additional Past Surgical History / Comment(s): egd/colonoscopy, lt breast bx Past Anesthesia/Blood Transfusion Reactions: No Reported Reaction Past Psychological History: Anxiety, Depression Smoking Status: Former smoker Past Alcohol Use History: None Reported Additional Past Alcohol Use History / Comment(s): started smoking age [age] years old quit 30 years ago 2 ppd Past Drug Use History: None Reported - Past Family History Father Family Medical History: Myocardial Infarction ([place]) Mother Family Medical History: Congestive Heart Failure (CHF) Medications and Allergies Home Medications Medication Instructions Recorded Confirmed Type Clopidogrel [Plavix] 75 mg PO DAILY 08/20/15 04/05/19 History Fluocinolone Acetonide Oil 2 drop BOTH EARS BID PRN 08/20/15 04/05/19 History [Fluocinolone Acetonide Oil (Otic)] Loperamide [Imodium] 2 mg PO QID PRN 08/20/15 04/05/19 History amLODIPine [Norvasc] 5 mg PO DAILY 08/20/15 04/05/19 History L.acidoph,Paracasei, B.lactis 1 cap PO DAILY 08/21/15 04/05/19 History [Probiotic] Meclizine [Antivert] 25 - 50 mg PO DAILY PRN 08/21/15 04/05/19 History Oxybutynin Chloride [Oxybutynin 10 mg PO DAILY 08/21/15 04/05/19 History Chloride ER] Naphazoline HCl/Glycerin [Clear 1 - 2 drops BOTH EYES DAILY PRN 06/12/16 04/05/19 History Eyes Max Redness Rlf Drp] Acetaminophen [Tylenol Arthritis] 650 mg PO Q4-6H PRN 12/17/16 04/05/19 History Atorvastatin Calcium [Lipitor] 10 mg PO DAILY 12/17/16 04/05/19 History Fexofenadine HCl [Charo Allergy] 180 mg PO DAILY 12/17/16 04/05/19 History Phenylephrine HCl/[place] Butter 1 supp RECTAL DAILY PRN 12/17/16 04/05/19 History [Preparation H Suppository] Spironolactone [Aldactone] 25 mg PO BID 12/17/16 04/05/19 History Triamcinolone Acetonide [Nasacort] 1 - 2 spray EA NOSTRIL DAILY PRN 12/17/16 04/05/19 History Sennosides-Docusate Sodium 2 tab PO DAILY #60 tablet 12/21/16 04/05/19 Rx [Senokot-S] ALPRAZolam [Xanax] 0.25 mg PO BID 08/24/18 04/05/19 History Fleet Suppository 1 supp RECTAL DAILY PRN 08/24/18 04/05/19 History LORazepam [Ativan] 0.5 mg PO BID 08/24/18 04/05/19 History Magnesium Citrate 296 ml PO DAILY PRN 08/24/18 04/05/19 History Melatonin 3 mg PO HS PRN 08/24/18 04/05/19 History Metoclopramide [Reglan] 10 mg PO ACHS #15 tab 08/24/18 04/05/19 Rx Montelukast [Singulair] 10 mg PO HS 08/24/18 04/05/19 History Multivitamins, Thera [Multivitamin 1 tab PO DAILY 08/24/18 04/05/19 History (formulary)] Prochlorperazine [Compazine] 5 mg PO Q6HR PRN 08/24/18 04/05/19 History Restfull Legs 1 tab PO DAILY PRN 08/24/18 04/05/19 History Acetaminophen-Codeine 300-30mg 1 tab PO Q8HR PRN 04/05/19 04/05/19 History [Tylenol w/codeine #3] Baclofen [Lioresal] 10 mg PO Q8HR PRN 04/05/19 04/05/19 History Calcium Carb/Magnesium Hydrox 1 tab PO Q2H 04/05/19 04/05/19 History [Rolaids Chewable Tablet] Ondansetron HCl [Zofran] 8 mg PO Q6H PRN 04/05/19 04/05/19 History Polyethylene Glycol 3350 [Miralax] 17 gram PO DAILY 04/05/19 04/05/19 History Ubidecarenone [Co Q-10] 100 mg PO DAILY 04/05/19 04/05/19 History buPROPion [Wellbutrin] 75 mg PO BID 04/05/19 04/05/19 History Allergies Allergy/AdvReac Type Severity Reaction Status Date / Time amoxicillin [From Augmentin] Allergy Unknown Verified 04/05/19 13:23 cefuroxime axetil Allergy Unknown Verified 04/05/19 13:23 [From Ceftin] clavulanic acid Allergy Unknown Verified 04/05/19 13:23 [From Augmentin] dicyclomine [From Bentyl] Allergy Unknown Verified 04/05/19 13:23 hyoscyamine [From Levbid] Allergy Unknown Verified 04/05/19 13:23 levofloxacin [From Levaquin] Allergy Unknown Verified 04/05/19 13:23 tramadol Allergy Unknown Verified 04/05/19 13:23 Physical Exam Vitals: Vital Signs Temp Pulse Pulse Resp BP BP Pulse Ox 04/06/19 07:47 98.6 F 70 18 147/88 95 04/06/19 04:00 98.2 F 69 16 116/65 94 L 04/06/19 00:00 68 16 133/64 97 04/05/19 21:50 98.6 F 76 16 135/65 96 04/05/19 20:30 75 13 120/64 100 04/05/19 20:00 64 14 127/69 99 04/05/19 18:30 79 12 144/67 95 04/05/19 18:00 81 14 145/67 97 04/05/19 17:30 92 14 154/74 96 04/05/19 16:00 79 13 135/72 97 04/05/19 15:00 85 18 135/72 97 04/05/19 14:00 78 20 122/68 98 04/05/19 12:50 98.4 F 85 18 146/79 98 Intake and Output 04/05/19 04/06/19 04/06/19 22:59 06:59 14:59 Intake Total 547.451 Balance 547.451 Intake: IV 500 Sodium Chloride 0.9% 1, 500 000 ml @ 100 mls/hr IV . Q10H [facility] Rx#:[id number] Intake, IV Titration 47.451 Amount Heparin Sod,Pork in 0.45% 47.451 NaCl 25,000 unit In 0.45 % NaCl 1 250ml.bag @ 12 UNITS/KG/HR 7.512 mls/hr IV .Q24H [facility] Rx#: [id number] Other: Voiding Method Toilet Toilet # Voids 2 Weight 61.9 kg - Constitutional General appearance: no acute distress - Respiratory Respiratory: bilateral: CTA - Cardiovascular Rhythm: regular Heart sounds: normal: S1, S2 Results 04/05/19 14:00 04/05/19 14:00 Cardiac Enzymes 04/05/19 04/05/19 04/05/19 Range/Units 14:00 14:00 20:33 AST 14 (14-36) U/L Troponin I <0.012 <0.012 (0.000-0.034) ng/mL 04/06/19 Range/Units 02:18 AST (14-36) U/L Troponin I <0.012 (0.000-0.034) ng/mL Coagulation 04/05/19 04/06/19 Range/Units 14:00 02:18 PT 9.7 (9.0-12.0) sec APTT 23.7 37.6 H (22.0-30.0) sec CBC 04/05/19 Range/Units 14:00 WBC 7.2 (3.8-10.6) k/uL RBC 4.77 (3.80-5.40) m/uL Hgb 14.6 (11.4-16.0) gm/dL Hct 42.6 (34.0-46.0) % Plt Count 276 (150-450) k/uL Comprehensive Metabolic Panel 04/05/19 Range/Units 14:00 Sodium 142 (137-145) mmol/L Potassium 4.2 (3.5-5.1) mmol/L Chloride 108 H (98-107) mmol/L Carbon Dioxide 27 (22-30) mmol/L BUN 20 H (7-17) mg/dL Creatinine 0.86 (0.52-1.04) mg/dL Glucose 106 H (74-99) mg/dL Calcium 10.4 H (8.4-10.2) mg/dL AST 14 (14-36) U/L ALT 20 (9-52) U/L Alkaline Phosphatase 57 (38-126) U/L Total Protein 7.0 (6.3-8.2) g/dL Albumin 4.5 (3.5-5.0) g/dL Current Medications Generic Name Dose Route Start Last Admin Trade Name Freq PRN Reason Stop Dose Admin Acetaminophen 650 mg 04/05/19 22:11 Tylenol Tab PO Q4H PRN Pain Acetaminophen/Codeine Phosphate 1 each 04/06/19 09:41 Tylenol #3 PO Q8HR PRN Pain Amlodipine Besylate 5 mg 04/06/19 09:00 04/06/19 10:09 Norvasc PO 5 mg DAILY SAE Administration Aspirin 325 mg 04/06/19 09:00 04/06/19 10:08 Aspirin PO 325 mg DAILY SAE Administration Atorvastatin Calcium 80 mg 04/06/19 09:00 04/06/19 10:09 Lipitor PO 80 mg DAILY SAE Administration Baclofen 10 mg 04/06/19 09:41 Lioresal PO Q8HR PRN Muscle Spasm Bupropion HCl 75 mg 04/06/19 09:00 04/06/19 10:09 Wellbutrin PO 75 mg BID SAE Administration Clopidogrel Bisulfate 75 mg 04/06/19 09:00 04/06/19 10:09 Plavix PO 75 mg DAILY SAE Administration Famotidine 20 mg 04/06/19 09:45 04/06/19 09:50 Pepcid PO 20 mg DAILY SAE Administration Heparin Sodium (Porcine) 0 unit 04/05/19 20:20 Heparin IV Q6HR PRN Low PTT Protocol Heparin Sodium/Sodium Chloride 250 mls @ 7.512 mls/hr 04/05/19 20:30 04/06/19 03:13 25,000 unit/ Sodium Chloride IV 15 units/kg/hr .Q24H SAE 9.389 mls/hr Titration Protocol 12 UNITS/KG/HR Loperamide HCl 2 mg 04/05/19 22:11 Imodium PO QID PRN Diarrhea Magnesium Citrate 296 ml 04/05/19 22:11 Citrate Of Magnesia PO DAILY PRN Constipation Meclizine HCl 25 mg 04/05/19 22:11 Antivert PO DAILY PRN Vertigo Metoprolol Tartrate 25 mg 04/05/19 21:00 04/06/19 10:09 Lopressor PO 25 mg BID SAE Administration Montelukast Sodium 10 mg 04/06/19 21:00 Singulair PO HS SAE Morphine Sulfate 4 mg 04/05/19 16:18 04/06/19 03:35 Morphine Sulfate (Inj) IVP 4 mg Q4HR PRN Administration Pain Nitroglycerin 0.4 mg 04/05/19 20:20 Nitrostat SUBLINGUAL Q5M PRN Chest Pain Ondansetron HCl 4 mg 04/06/19 09:42 04/06/19 09:50 Zofran IVP 4 mg Q6HR PRN Administration Nausea And Vomiting Oxybutynin Chloride 10 mg 04/06/19 09:00 04/06/19 10:09 Ditropan Xl PO 10 mg DAILY SAE Administration Spironolactone 25 mg 04/06/19 09:00 04/06/19 10:09 Aldactone PO 25 mg BID SAE Administration Intake and Output 04/05/19 04/06/19 04/06/19 22:59 06:59 14:59 Intake Total 547.451 Balance 547.451 Intake: IV 500 Sodium Chloride 0.9% 1, 500 000 ml @ 100 mls/hr IV . Q10H [facility] Rx#:[id number] Intake, IV Titration 47.451 Amount Heparin Sod,Pork in 0.45% 47.451 NaCl 25,000 unit In 0.45 % NaCl 1 250ml.bag @ 12 UNITS/KG/HR 7.512 mls/hr IV .Q24H [facility] Rx#: [id number] Other: Voiding Method Toilet Toilet # Voids 2 Weight 61.9 kg 04/05/19 14:00 04/05/19 14:00 Assessment and Plan Assessment: Assessment #1 atypical chest discomfort, probably coming from the neck, it is positional #2 hypertension #3 dyslipidemia #4 multiple comorbid conditions Plan #1 the patient was ruled out for acute coronary event #2 the chest discomfort is very atypical and positional #3 from the cardiovascular standpoint overview, she device we can be discharged home and have a stress test as an outpatient. Thank you for allowing us participate in her care
[2019-04-06 11:02] LABS: Mean Platelet Volume 6.9; Platelet Count 319 k/uL (150-450)
[2019-04-06 11:18] LABS: Cholesterol 173 mg/dL (<200); HDL Cholesterol 85 mg/dL (40-60); LDL Cholesterol,Calculated 59 mg/dL (0-99); Triglycerides 143 mg/dL (<150)
--- NOTE | 2019-04-06 12:21 | P.HPIM ---
History of Present Illness 68-year-old pleasant female came in with the complaints of chest pain actually Pain radiating to the chest area. Patient has have a neck issues patient appears to [place] skeletal pain. She has bone spurs on the right side of the nec k but her pain is on the left side she says. Patient denied any diaphoresis pain is constant and sharp in nature nonradiating not assist with the lightheadedness diaphoresis doesn't increase with deep breathing. Patient was evaluated by cardiology. Troponins and EKG no significant abnormality was appreciated compared to old EKGs. Patient was ruled out acute chronic syndromes patient is cleared for discharge patient appears to [place] skeletal chest pain coming from the degenerative cervical spine disease and patient will be discharged to follow up with primary care physician as an outpatient and cardiology as an outpatient and might need a stress test as an outpatient. Patient will be given prescription for ibuprofen and GI prophylaxis. Kidney function is borderline and this need to be monitored with ibuprofen. Her chest pain presently resolved Review of Systems REVIEW OF SYSTEMS: CONSTITUTIONAL: No fever, no malaise, no fatigue. HEENT: No recent visual problems or hearing problems. Denied any sore throat. CARDIOVASCULAR: No orthopnea, PND, no palpitations, no syncope. PULMONARY: No shortness of breath, no cough, no hemoptysis. GASTROINTESTINAL: No diarrhea, no nausea, no vomiting, no abdominal pain. NEUROLOGICAL: No headaches, no weakness, no numbness. HEMATOLOGICAL: Denies any bleeding or petechiae. GENITOURINARY: Denies any burning micturition, frequency, or urgency. MUSCULOSKELETAL/RHEUMATOLOGICAL: Denies any joint pain, swelling, or any muscle pain. ENDOCRINE: Denies any polyuria or polydipsia. The rest of the 14-point review of systems is negative. Past Medical History Past Medical History: CVA/TIA, GERD/Reflux, Hyperlipidemia, Hypertension, Osteoarthritis (OA) Additional Past Medical History / Comment(s): IBS, overactive bladder; vertigo, diverticulosis, uterine fibroids, pauma, tia, anx /depression.seasonal allergies, sinus problems, migrainespt state she has had both the prevnar 13 and shingles vaccine not sure of date-write unable to verify dats at time of admit. History of Any Multi-Drug Resistant Organisms: None Reported Past Surgical History: Breast Surgery Additional Past Surgical History / Comment(s): egd/colonoscopy, lt breast bx Past Anesthesia/Blood Transfusion Reactions: No Reported Reaction Past Psychological History: Anxiety, Depression Smoking Status: Former smoker Past Alcohol Use History: None Reported Additional Past Alcohol Use History / Comment(s): started smoking age [age] years old quit 30 years ago 2 ppd Past Drug Use History: None Reported - Past Family History Father Family Medical History: Myocardial Infarction ([place]) Mother Family Medical History: Congestive Heart Failure (CHF) Medications and Allergies Home Medications Medication Instructions Recorded Confirmed Type Clopidogrel [Plavix] 75 mg PO DAILY 08/20/15 04/05/19 History Fluocinolone Acetonide Oil 2 drop BOTH EARS BID PRN 08/20/15 04/05/19 History [Fluocinolone Acetonide Oil (Otic)] Loperamide [Imodium] 2 mg PO QID PRN 08/20/15 04/05/19 History amLODIPine [Norvasc] 5 mg PO DAILY 08/20/15 04/05/19 History L.acidoph,Paracasei, B.lactis 1 cap PO DAILY 08/21/15 04/05/19 History [Probiotic] Meclizine [Antivert] 25 - 50 mg PO DAILY PRN 08/21/15 04/05/19 History Oxybutynin Chloride [Oxybutynin 10 mg PO DAILY 08/21/15 04/05/19 History Chloride ER] Naphazoline HCl/Glycerin [Clear 1 - 2 drops BOTH EYES DAILY PRN 06/12/16 04/05/19 History Eyes Max Redness Rlf Drp] Acetaminophen [Tylenol Arthritis] 650 mg PO Q4-6H PRN 12/17/16 04/05/19 History Atorvastatin Calcium [Lipitor] 10 mg PO DAILY 12/17/16 04/05/19 History Fexofenadine HCl [Charo Allergy] 180 mg PO DAILY 12/17/16 04/05/19 History Phenylephrine HCl/[place] Butter 1 supp RECTAL DAILY PRN 12/17/16 04/05/19 History [Preparation H Suppository] Spironolactone [Aldactone] 25 mg PO BID 12/17/16 04/05/19 History Triamcinolone Acetonide [Nasacort] 1 - 2 spray EA NOSTRIL DAILY PRN 12/17/16 04/05/19 History Sennosides-Docusate Sodium 2 tab PO DAILY #60 tablet 12/21/16 04/05/19 Rx [Senokot-S] ALPRAZolam [Xanax] 0.25 mg PO BID 08/24/18 04/05/19 History Fleet Suppository 1 supp RECTAL DAILY PRN 08/24/18 04/05/19 History LORazepam [Ativan] 0.5 mg PO BID 08/24/18 04/05/19 History Magnesium Citrate 296 ml PO DAILY PRN 08/24/18 04/05/19 History Melatonin 3 mg PO HS PRN 08/24/18 04/05/19 History Metoclopramide [Reglan] 10 mg PO ACHS #15 tab 08/24/18 04/05/19 Rx Montelukast [Singulair] 10 mg PO HS 08/24/18 04/05/19 History Multivitamins, Thera [Multivitamin 1 tab PO DAILY 08/24/18 04/05/19 History (formulary)] Prochlorperazine [Compazine] 5 mg PO Q6HR PRN 08/24/18 04/05/19 History Restfull Legs 1 tab PO DAILY PRN 08/24/18 04/05/19 History Acetaminophen-Codeine 300-30mg 1 tab PO Q8HR PRN 04/05/19 04/05/19 History [Tylenol w/codeine #3] Baclofen [Lioresal] 10 mg PO Q8HR PRN 04/05/19 04/05/19 History Calcium Carb/Magnesium Hydrox 1 tab PO Q2H 04/05/19 04/05/19 History [Rolaids Chewable Tablet] Ondansetron HCl [Zofran] 8 mg PO Q6H PRN 04/05/19 04/05/19 History Polyethylene Glycol 3350 [Miralax] 17 gram PO DAILY 04/05/19 04/05/19 History Ubidecarenone [Co Q-10] 100 mg PO DAILY 04/05/19 04/05/19 History buPROPion [Wellbutrin] 75 mg PO BID 04/05/19 04/05/19 History Ibuprofen [Motrin] 400 mg PO Q8HR PRN #30 tab 04/06/19 Rx Ranitidine HCl [Zantac] 150 mg PO BID #30 tab 04/06/19 Rx Allergies Allergy/AdvReac Type Severity Reaction Status Date / Time amoxicillin [From Augmentin] Allergy Unknown Verified 04/05/19 13:23 cefuroxime axetil Allergy Unknown Verified 04/05/19 13:23 [From Ceftin] clavulanic acid Allergy Unknown Verified 04/05/19 13:23 [From Augmentin] dicyclomine [From Bentyl] Allergy Unknown Verified 04/05/19 13:23 hyoscyamine [From Levbid] Allergy Unknown Verified 04/05/19 13:23 levofloxacin [From Levaquin] Allergy Unknown Verified 04/05/19 13:23 tramadol Allergy Unknown Verified 04/05/19 13:23 Physical Exam Vitals: Vital Signs Temp Pulse Pulse Resp BP BP Pulse Ox 04/06/19 07:47 98.6 F 70 18 147/88 95 04/06/19 04:00 98.2 F 69 16 116/65 94 L 04/06/19 00:00 68 16 133/64 97 04/05/19 21:50 98.6 F 76 16 135/65 96 04/05/19 20:30 75 13 120/64 100 04/05/19 20:00 64 14 127/69 99 04/05/19 18:30 79 12 144/67 95 04/05/19 18:00 81 14 145/67 97 04/05/19 17:30 92 14 154/74 96 04/05/19 16:00 79 13 135/72 97 04/05/19 15:00 85 18 135/72 97 04/05/19 14:00 78 20 122/68 98 04/05/19 12:50 98.4 F 85 18 146/79 98 Intake and Output 04/05/19 04/06/19 04/06/19 22:59 06:59 14:59 Intake Total 547.451 Balance 547.451 Intake: IV 500 Sodium Chloride 0.9% 1, 500 000 ml @ 100 mls/hr IV . Q10H [facility] Rx#:[id number] Intake, IV Titration 47.451 Amount Heparin Sod,Pork in 0.45% 47.451 NaCl 25,000 unit In 0.45 % NaCl 1 250ml.bag @ 12 UNITS/KG/HR 7.512 mls/hr IV .Q24H [facility] Rx#: [id number] Other: Voiding Method Toilet Toilet # Voids 2 1 Weight 61.9 kg PHYSICAL EXAMINATION: GENERAL: The patient is alert and oriented x3, not in any acute distress. Well developed, well nourished. HEENT: Pupils are round and equally reacting to light. EOMI. No scleral icterus. No conjunctival pallor. Normocephalic, atraumatic. No pharyngeal erythema. No thyromegaly. CARDIOVASCULAR: S1 and S2 present. No murmurs, rubs, or gallops. PULMONARY: Chest is clear to auscultation, no wheezing or crackles. ABDOMEN: Soft, nontender, nondistended, normoactive bowel sounds. No palpable organomegaly. MUSCULOSKELETAL: No joint swelling or deformity. EXTREMITIES: No cyanosis, clubbing, or pedal edema. NEUROLOGICAL: Gross neurological examination did not reveal any focal deficits. SKIN: No rashes. Results CBC & Chem 7: 04/06/19 10:36 04/05/19 14:00 Labs: Abnormal Lab Results - Last 24 Hours (Table) 04/05/19 04/06/19 04/06/19 Range/Units 14:00 02:18 10:36 APTT 37.6 H (22.0-30.0) sec Chloride 108 H (98-107) mmol/L BUN 20 H (7-17) mg/dL Glucose 106 H (74-99) mg/dL Calcium 10.4 H (8.4-10.2) mg/dL HDL Cholesterol 85 H (40-60) mg/dL 04/06/19 Range/Units 10:36 APTT 51.8 H (22.0-30.0) sec Chloride (98-107) mmol/L BUN (7-17) mg/dL Glucose (74-99) mg/dL Calcium (8.4-10.2) mg/dL HDL Cholesterol (40-60) mg/dL Thrombosis Risk Factor Assmnt - Choose All That Apply Any of the Below Risk Factors Present?: No Other Risk Factors: Yes Each Risk Factor Represents 2 Points: Age 61-74 years Thrombosis Risk Factor Assessment Total Risk Factor Score: 2 Thrombosis Risk Factor Assessment Level: Low Risk Assessment and Plan Plan: -Chest pain rule out acute coronary syndromes, patient will be discharged today patient has [place] skeletal chest pain from cervical degenerative neck disease. Follow-up with primary care patient is an outpatient -Gases patient reflux disease -hyperlipidemia Hypertension osteoarthritis multiple joints including cervical and lumbar sacral spine.
--- NOTE | 2019-04-06 12:22 | P.DS ---
Providers Date of admission: 04/05/19 20:22 Attending physician: Dre Avila Consults: 04/05/19 20:20 Consult Physician Urgent Consulting Provider: Christiano Love Consult Reason/Comments: cp Do you want consulting provider notified?: Yes Primary care physician: Parvez Villarreal [facility] Hospital Course: Please refer to my HPI Patient Condition at Discharge: Undetermined Plan - Discharge Summary Discharge Rx Participant: Yes New Discharge Prescriptions: New Ibuprofen [Motrin] 400 mg PO Q8HR PRN #30 tab PRN Reason: Pain Ranitidine HCl [Zantac] 150 mg PO BID #30 tab Continue Clopidogrel [Plavix] 75 mg PO DAILY amLODIPine [Norvasc] 5 mg PO DAILY Loperamide [Imodium] 2 mg PO QID PRN PRN Reason: Diarrhea Fluocinolone Acetonide Oil [Fluocinolone Acetonide Oil (Otic)] 2 drop BOTH EARS BID PRN PRN Reason: Sinus Symptoms L.acidoph,Paracasei, B.lactis [Probiotic] 1 cap PO DAILY Oxybutynin Chloride [Oxybutynin Chloride ER] 10 mg PO DAILY Meclizine [Antivert] 25 - 50 mg PO DAILY PRN PRN Reason: Vertigo Naphazoline HCl/Glycerin [Clear Eyes Max Redness Rlf Drp] 1 - 2 drops BOTH EYES DAILY PRN PRN Reason: Dry Eye(S) Phenylephrine HCl/[place] Butter [Preparation H Suppository] 1 supp RECTAL DAILY PRN PRN Reason: Hemorrhoids Fexofenadine HCl [Charo Allergy] 180 mg PO DAILY Acetaminophen [Tylenol Arthritis] 650 mg PO Q4-6H PRN PRN Reason: Pain Triamcinolone Acetonide [Nasacort] 1 - 2 spray EA NOSTRIL DAILY PRN PRN Reason: Nasal Congestion Atorvastatin Calcium [Lipitor] 10 mg PO DAILY Spironolactone [Aldactone] 25 mg PO BID Sennosides-Docusate Sodium [Senokot-S] 2 tab PO DAILY #60 tablet Melatonin 3 mg PO HS PRN PRN Reason: Insomnia Magnesium Citrate 296 ml PO DAILY PRN PRN Reason: Constipation Fleet Suppository 1 supp RECTAL DAILY PRN PRN Reason: Constipation Prochlorperazine [Compazine] 5 mg PO Q6HR PRN PRN Reason: Nausea Montelukast [Singulair] 10 mg PO HS Restfull Legs 1 tab PO DAILY PRN PRN Reason: restless legs Multivitamins, Thera [Multivitamin (formulary)] 1 tab PO DAILY LORazepam [Ativan] 0.5 mg PO BID ALPRAZolam [Xanax] 0.25 mg PO BID Metoclopramide [Reglan] 10 mg PO ACHS #15 tab buPROPion [Wellbutrin] 75 mg PO BID Ondansetron HCl [Zofran] 8 mg PO Q6H PRN PRN Reason: Nausea Polyethylene Glycol 3350 [Miralax] 17 gram PO DAILY Baclofen [Lioresal] 10 mg PO Q8HR PRN PRN Reason: Spasms Acetaminophen-Codeine 300-30mg [Tylenol w/codeine #3] 1 tab PO Q8HR PRN PRN Reason: Pain Calcium Carb/Magnesium Hydrox [Rolaids Chewable Tablet] 1 tab PO Q2H Ubidecarenone [Co Q-10] 100 mg PO DAILY Discharge Medication List Clopidogrel [Plavix] 75 mg PO DAILY 08/20/15 [History] Fluocinolone Acetonide Oil [Fluocinolone Acetonide Oil (Otic)] 2 drop BOTH EARS BID PRN 08/20/15 [History] Loperamide [Imodium] 2 mg PO QID PRN 08/20/15 [History] amLODIPine [Norvasc] 5 mg PO DAILY 08/20/15 [History] L.acidoph,Paracasei, B.lactis [Probiotic] 1 cap PO DAILY 08/21/15 [History] Meclizine [Antivert] 25 - 50 mg PO DAILY PRN 08/21/15 [History] Oxybutynin Chloride [Oxybutynin Chloride ER] 10 mg PO DAILY 08/21/15 [History] Naphazoline HCl/Glycerin [Clear Eyes Max Redness Rlf Drp] 1 - 2 drops BOTH EYES DAILY PRN 06/12/16 [History] Acetaminophen [Tylenol Arthritis] 650 mg PO Q4-6H PRN 12/17/16 [History] Atorvastatin Calcium [Lipitor] 10 mg PO DAILY 12/17/16 [History] Fexofenadine HCl [Charo Allergy] 180 mg PO DAILY 12/17/16 [History] Phenylephrine HCl/[place] Butter [Preparation H Suppository] 1 supp RECTAL DAILY PRN 12/17/16 [History] Spironolactone [Aldactone] 25 mg PO BID 12/17/16 [History] Triamcinolone Acetonide [Nasacort] 1 - 2 spray EA NOSTRIL DAILY PRN 12/17/16 [History] Sennosides-Docusate Sodium [Senokot-S] 2 tab PO DAILY #60 tablet 12/21/16 [Rx] ALPRAZolam [Xanax] 0.25 mg PO BID 08/24/18 [History] Fleet Suppository 1 supp RECTAL DAILY PRN 08/24/18 [History] LORazepam [Ativan] 0.5 mg PO BID 08/24/18 [History] Magnesium Citrate 296 ml PO DAILY PRN 08/24/18 [History] Melatonin 3 mg PO HS PRN 08/24/18 [History] Metoclopramide [Reglan] 10 mg PO ACHS #15 tab 08/24/18 [Rx] Montelukast [Singulair] 10 mg PO HS 08/24/18 [History] Multivitamins, Thera [Multivitamin (formulary)] 1 tab PO DAILY 08/24/18 [History] Prochlorperazine [Compazine] 5 mg PO Q6HR PRN 08/24/18 [History] Restfull Legs 1 tab PO DAILY PRN 08/24/18 [History] Acetaminophen-Codeine 300-30mg [Tylenol w/codeine #3] 1 tab PO Q8HR PRN 04/05/19 [History] Baclofen [Lioresal] 10 mg PO Q8HR PRN 04/05/19 [History] Calcium Carb/Magnesium Hydrox [Rolaids Chewable Tablet] 1 tab PO Q2H 04/05/19 [History] Ondansetron HCl [Zofran] 8 mg PO Q6H PRN 04/05/19 [History] Polyethylene Glycol 3350 [Miralax] 17 gram PO DAILY 04/05/19 [History] Ubidecarenone [Co Q-10] 100 mg PO DAILY 04/05/19 [History] buPROPion [Wellbutrin] 75 mg PO BID 04/05/19 [History] Ibuprofen [Motrin] 400 mg PO Q8HR PRN #30 tab 04/06/19 [Rx] Ranitidine HCl [Zantac] 150 mg PO BID #30 tab 04/06/19 [Rx] Follow up Appointment(s)/Referral(s): Parvez Villarreal MD [Primary Care Provider] - 3 Days Patient Instructions/Handouts: Chest Pain (ED) Discharge Disposition: HOME SELF-CARE
[2019-04-06 12:45] VITALS: BP 139/77; PULSE 73; TEMP 98.4
[2019-04-06] MEDS ORDERED: MONTELUKAST 10 MG TAB PO SCH (21:00)
== END 2019-04-06 13:19 | disposition home or self-care (01) ==
LOC: EC 12:37 → 3SCARD 20:22
PROVIDERS: ADMIT Hospitalist; ATTEND Hospitalist
DX: R07.89 Other chest pain (principal); I10 Essential (primary) hypertension; E78.5 Hyperlipidemia, unspecified; E78.00 Pure hypercholesterolemia, unspecified; K21.9 Gastro-esophageal reflux disease without esophagitis; N32.81 Overactive bladder; K58.9 Irritable bowel syndrome, unspecified; K57.90 Diverticulosis of intestine, part unspecified, without perforation or abscess without bleeding; J30.2 Other seasonal allergic rhinitis; H91.90 Unspecified hearing loss, unspecified ear; G89.29 Other chronic pain; M54.2 Cervicalgia; M25.78 Osteophyte, vertebrae; M15.9 Polyosteoarthritis, unspecified; M47.812 Spondylosis without myelopathy or radiculopathy, cervical region; M47.817 Spondylosis without myelopathy or radiculopathy, lumbosacral region; I45.10 Unspecified right bundle-branch block; G43.909 Migraine, unspecified, not intractable, without status migrainosus; F41.9 Anxiety disorder, unspecified; F32.9 Major depressive disorder, single episode, unspecified; Z79.891 Long term (current) use of opiate analgesic; Z79.02 Long term (current) use of antithrombotics/antiplatelets; Z79.899 Other long term (current) drug therapy; Z88.0 Allergy status to penicillin; Z88.1 Allergy status to other antibiotic agents; Z88.5 Allergy status to narcotic agent; Z88.8 Allergy status to other drugs, medicaments and biological substances; Z86.73 Personal history of transient ischemic attack (TIA), and cerebral infarction without residual deficits; Z87.891 Personal history of nicotine dependence; Z82.49 Family history of ischemic heart disease and other diseases of the circulatory system
CPT/HCPCS: 96376 ×3; 96366 ×2; 96375 ×2; 96361; 96365; 99291; 36415; 93005; 83880; 80061; 80053; 83690; 83735; 84484 ×2; 85025; 85049; 85610; 85730 ×2; 71046; G0378 ×2; J2270 ×2; J1644 ×2; J2405

== ENCOUNTER → 2019-07-21 | Outpatient (CLI) | payer MEDICARE, BC ==
[~2019-07-21] MED LIST: DENOSUMAB 60 MG/ML 1 ML SYRINGE SQ NR
[2019-07-21 10:25] VITALS: RESP 16
== END | disposition home or self-care (01) ==
LOC: PROCWHC3 09:54
PROVIDERS: ATTEND Family Medicine
DX: M81.0 Age-related osteoporosis without current pathological fracture (principal)
CPT/HCPCS: 96372; J0897

== ENCOUNTER → 2019-08-07 | Outpatient (CLI) | payer MEDICARE, BC ==
--- NOTE | 2019-08-10 12:54 | MM ---
Reason for exam: screening (asymptomatic). Last mammogram was performed 1 year ago. History: Patient is postmenopausal. 2 benign excisional biopsies of the left breast. Took estrogen for 11 years 9 months. Took progesterone for 11 years 9 months. Physical Findings: A clinical breast exam by your physician is recommended on an annual basis and results should be correlated with mammographic findings. MG 3D Screening Mammo W/Cad Bilateral CC and MLO view(s) were taken. Prior study comparison: August 06, 2018, bilateral MG 3d screening mammo w/cad. March 21, 2017, bilateral MG 3d screening mammo w/cad. Benign appearing bilateral calcifications. There are benign appearing oval circumscribed left periareolar masses back to 2016. No suspicious abnormality. ASSESSMENT: Benign, BI-RAD 2 RECOMMENDATION: Routine screening mammogram of both breasts in 1 year.
== END | disposition home or self-care (01) ==
LOC: RADMAMWWP 14:42
PROVIDERS: ATTEND Family Medicine
DX: Z12.31 Encounter for screening mammogram for malignant neoplasm of breast (principal)
CPT/HCPCS: 77063; 77067

== ENCOUNTER 2019-10-31 12:50 | Emergency (ER) | payer MEDICARE, BC ==
[2019-10-31] MEDS ORDERED: SODIUM CHLORIDE 0.9% 1,000 ML IV STA (13:13)
[2019-10-31] MEDS ORDERED: ONDANSETRON 4 MG/2 ML VIAL IVP STA ×2 (13:20→16:33)
[2019-10-31 13:40] LABS: Basophils % (A) 0 %; Eosinophils # (A) 0.1 k/uL (0-0.7); Eosinophils % (A) 1 %; HCT 40.6 % (34.0-46.0); HGB 14.4 gm/dL (11.4-16.0); Lymphocytes # (A) 1.1 k/uL (1.0-4.8); Lymphocytes % (A) 12 %; MCH 31.7 pg (25.0-35.0); MCHC 35.5 g/dL (31.0-37.0); MCV 89.3 fL (80.0-100.0); Mean Platelet Volume 6.7; Monocytes # (A) 0.3 k/uL (0-1.0); Monocytes % (A) 4 %; Neutrophils # (A) 7.1 k/uL (1.3-7.7); Neutrophils % (A) 82 %; Platelet Count 269 k/uL (150-450); RBC 4.55 m/uL (3.80-5.40); RDW 13.1 % (11.5-15.5); WBC 8.6 k/uL (3.8-10.6)
--- NOTE | 2019-10-31 13:40 | ED ---
Dizziness HPI - General Chief Complaint: Dizziness Stated Complaint: Dizziness, R Sided Weakness Time Seen by Provider: 10/31/19 13:04 Source: patient, RN notes reviewed, old records reviewed Mode of arrival: wheelchair Limitations: no limitations - History of Present Illness Initial Comments: this is a 68-year-old female here with multiple symptoms. Patient complaining of neurological complaints. Dizziness lightheadedness right facial numbness and tingling right arm numbness and tingling. She does have history of heart disease and CVA with right-sided weakness which is resolved no permanent deficits from prior stroke. No recent travel history no sick contacts she has been battling sinus infection on Bactrim. No fevers currently her headache currently MD Complaint: dizziness, lightheadedness, other (vertiginous symptoms) -: days(s) Timing: gradual onset Description: sense of movement, off-balance History of Same: Yes History of Trauma: No Severity: mild Improves With: remaining still Worsens With: movement, exertion Associated Symptoms: fever/chills, loss of appetite, weakness - Related Data Home Medications Medication Instructions Recorded Confirmed Clopidogrel [Plavix] 75 mg PO DAILY 08/20/15 10/31/19 Fluocinolone Acetonide Oil 2 drop BOTH EARS BID PRN 08/20/15 10/31/19 [Fluocinolone Acetonide Oil (Otic)] Loperamide [Imodium] 2 mg PO QID PRN 08/20/15 10/31/19 L.acidoph,Paracasei, B.lactis 1 cap PO DAILY 08/21/15 10/31/19 [Probiotic] Meclizine [Antivert] 25 - 50 mg PO DAILY PRN 08/21/15 10/31/19 Oxybutynin Chloride [Oxybutynin 20 mg PO DAILY 08/21/15 10/31/19 Chloride ER] Atorvastatin Calcium [Lipitor] 10 mg PO DAILY 12/17/16 10/31/19 Fexofenadine HCl [Charo Allergy] 180 mg PO DAILY 12/17/16 10/31/19 Phenylephrine HCl/[place] Butter 1 supp RECTAL DAILY PRN 12/17/16 10/31/19 [Preparation H Suppository] Triamcinolone Acetonide [Nasacort] 1 - 2 spray EA NOSTRIL DAILY PRN 12/17/16 10/31/19 LORazepam [Ativan] 0.5 mg PO BID 08/24/18 10/31/19 Magnesium Citrate 296 ml PO DAILY PRN 08/24/18 10/31/19 Montelukast [Singulair] 10 mg PO HS 08/24/18 10/31/19 Multivitamins, Thera [Multivitamin 1 tab PO DAILY 08/24/18 10/31/19 (formulary)] Prochlorperazine [Compazine] 5 mg PO Q6HR PRN 08/24/18 10/31/19 Restfull Legs 1 tab PO DAILY PRN 08/24/18 10/31/19 Acetaminophen-Codeine 300-30mg 1 tab PO BID PRN 04/05/19 10/31/19 [Tylenol w/codeine #3] Baclofen [Lioresal] 10 mg PO Q8H PRN 04/05/19 10/31/19 Calcium Carb/Magnesium Hydrox 1 tab PO Q2H PRN 04/05/19 10/31/19 [Rolaids Chewable Tablet] Ondansetron HCl [Zofran] 8 mg PO Q6H PRN 04/05/19 10/31/19 Polyethylene Glycol 3350 [Miralax] 17 gram PO DAILY PRN 04/05/19 10/31/19 Ubidecarenone [Co Q-10] 200 mg PO DAILY 04/05/19 10/31/19 buPROPion [Wellbutrin] 75 mg PO BID 04/05/19 10/31/19 ALPRAZolam [Xanax] 0.5 mg PO BID PRN 10/31/19 10/31/19 Artificial Tears-Hypromellose 1 drop BOTH EYES QID PRN 10/31/19 10/31/19 [Artificial Tear Drops] Atenolol/Chlorthalidone 1 tab PO DAILY 10/31/19 10/31/19 [Atenolol-Chlorthalidone 50-25] Denosumab [Prolia] 60 mg SQ Q180D 10/31/19 10/31/19 Famotidine [Pepcid AC] 10 mg PO DAILY PRN 10/31/19 10/31/19 Glycerin Adult Suppository 1 supp RECTAL ONCE PRN 10/31/19 10/31/19 Hydrochlorothiazide [Hydrodiuril] 25 mg PO DAILY 10/31/19 10/31/19 Sennosides-Docusate Sodium 2 tab PO DAILY PRN 10/31/19 10/31/19 [Senokot-S] Simethicone [Gas-X] 125 mg PO QID PRN 10/31/19 10/31/19 Sulfamethox-Tmp 800-160Mg [Bactrim 1 tab PO Q12H 10/31/19 10/31/19 DS 800-160 mg] Triamcinolone 0.025% Cream 1 applic TOPICAL BID PRN 10/31/19 10/31/19 [Kenalog 0.025% Cream] methylPREDNISolone [Medrol Dose See Taper PO DIRECTED 10/31/19 10/31/19 Pack] traZODone HCL 150 mg PO HS 10/31/19 10/31/19 Allergies Allergy/AdvReac Type Severity Reaction Status Date / Time amoxicillin [From Augmentin] Allergy Unknown Verified 10/31/19 16:20 cefuroxime axetil Allergy Unknown Verified 10/31/19 16:20 [From Ceftin] clavulanic acid Allergy Unknown Verified 10/31/19 16:20 [From Augmentin] dicyclomine [From Bentyl] Allergy Unknown Verified 10/31/19 16:20 hyoscyamine [From Levbid] Allergy Unknown Verified 10/31/19 16:20 levofloxacin [From Levaquin] Allergy Unknown Verified 10/31/19 16:20 tramadol Allergy Unknown Verified 10/31/19 16:20 Review of Systems ROS Statement: Those systems with pertinent positive or pertinent negative responses have been documented in the HPI. ROS Other: All systems not noted in ROS Statement are negative. Past Medical History Past Medical History: CVA/TIA, GERD/Reflux, Hyperlipidemia, Hypertension, Osteoarthritis (OA) Additional Past Medical History / Comment(s): IBS, overactive bladder; vertigo, diverticulosis, uterine fibroids, [place]. OSTEOPOROSIS. History of Any Multi-Drug Resistant Organisms: None Reported Past Surgical History: Breast Surgery Additional Past Surgical History / Comment(s): egd/colonoscopy, lt breast bx Past Anesthesia/Blood Transfusion Reactions: No Reported Reaction Past Psychological History: Anxiety, Depression Smoking Status: Former smoker Past Alcohol Use History: None Reported Past Drug Use History: None Reported - Past Family History Father Family Medical History: Myocardial Infarction ([place]) Mother Family Medical History: Congestive Heart Failure (CHF) General Exam - General Exam Comments Initial Comments: NIH of 0 Limitations: no limitations General appearance: alert, in no apparent distress Head exam: Present: atraumatic, normocephalic, normal inspection Eye exam: Present: normal appearance, PERRL, EOMI. Absent: scleral icterus, con junctival injection, periorbital swelling ENT exam: Present: normal exam, mucous membranes moist Neck exam: Present: normal inspection. Absent: tenderness, meningismus, lymphadenopathy Respiratory exam: Present: normal lung sounds bilaterally. Absent: respiratory distress, wheezes, rales, rhonchi, stridor Cardiovascular Exam: Present: regular rate, normal rhythm, normal heart sounds. Absent: systolic murmur, diastolic murmur, rubs, gallop, clicks GI/Abdominal exam: Present: soft, normal bowel sounds. Absent: distended, tenderness, guarding, rebound, rigid Extremities exam: Present: normal inspection, full ROM, normal capillary refill. Absent: tenderness, pedal edema, joint swelling, calf tenderness Back exam: Present: normal inspection Neurological exam: Present: alert, oriented X3, CN II-XII intact Psychiatric exam: Present: normal affect, normal mood Skin exam: Present: warm, dry, intact, normal color. Absent: rash Course Vital Signs 10/31/19 10/31/19 10/31/19 12:57 14:46 17:17 Temperature 98.5 F 98.8 F Pulse Rate 70 72 63 Respiratory 19 18 16 Rate Blood Pressure 153/75 138/64 156/75 O2 Sat by Pulse 96 97 98 Oximetry EKG Findings - EKG Comments: EKG Findings:: EKG shows sinus rhythm of 63, [place] 134, QRS 144, QTC 427 Medical Decision Making - Medical Decision Making 68 female here for evaluation patient for evaluation of right-sided numbness tingling paresthesia type symptoms. Patient can be discharged - Lab Data Result diagrams: 10/31/19 13:20 10/31/19 13:20 Lab Results 10/31/19 10/31/19 10/31/19 Range/Units 13:20 13:20 13:20 WBC 8.6 (3.8-10.6) k/uL RBC 4.55 (3.80-5.40) m/uL Hgb 14.4 (11.4-16.0) gm/dL Hct 40.6 (34.0-46.0) % MCV 89.3 (80.0-100.0) fL MCH 31.7 (25.0-35.0) pg MCHC 35.5 (31.0-37.0) g/dL RDW 13.1 (11.5-15.5) % Plt Count 269 (150-450) k/uL Neutrophils % 82 % Lymphocytes % 12 % Monocytes % 4 % Eosinophils % 1 % Basophils % 0 % Neutrophils # 7.1 (1.3-7.7) k/uL Lymphocytes # 1.1 (1.0-4.8) k/uL Monocytes # 0.3 (0-1.0) k/uL Eosinophils # 0.1 (0-0.7) k/uL Basophils # 0.0 (0-0.2) k/uL Sodium 133 L (137-145) mmol/L Potassium 4.8 (3.5-5.1) mmol/L Chloride 100 (98-107) mmol/L Carbon Dioxide 22 (22-30) mmol/L Anion Gap 11 mmol/L BUN 23 H (7-17) mg/dL Creatinine 1.27 H (0.52-1.04) mg/dL Est GFR (CKD-EPI)AfAm 50 (>60 ml/min/1.73 sqM) Est GFR (CKD-EPI)NonAf 43 (>60 ml/min/1.73 sqM) Glucose 133 H (74-99) mg/dL Calcium 10.4 H (8.4-10.2) mg/dL Phosphorus 4.4 (2.5-4.5) mg/dL Magnesium 2.0 (1.6-2.3) mg/dL Total Bilirubin 0.5 (0.2-1.3) mg/dL AST 13 L (14-36) U/L ALT 14 (4-34) U/L Alkaline Phosphatase 31 L (38-126) U/L Troponin I <0.012 (0.000-0.034) ng/mL Total Protein 7.1 (6.3-8.2) g/dL Albumin 4.6 (3.5-5.0) g/dL Urine Color Urine Appearance (Clear) Urine pH (5.0-8.0) Ur Specific [place] (1.001-1.035) Urine Protein (Negative) Urine Glucose (UA) (Negative) Urine Ketones (Negative) Urine Blood (Negative) Urine Nitrite (Negative) Urine Bilirubin (Negative) Urine Urobilinogen (<2.0) mg/dL Ur Leukocyte Esterase (Negative) 10/31/19 Range/Units 14:25 WBC (3.8-10.6) k/uL RBC (3.80-5.40) m/uL Hgb (11.4-16.0) gm/dL Hct (34.0-46.0) % MCV (80.0-100.0) fL MCH (25.0-35.0) pg MCHC (31.0-37.0) g/dL RDW (11.5-15.5) % Plt Count (150-450) k/uL Neutrophils % % Lymphocytes % % Monocytes % % Eosinophils % % Basophils % % Neutrophils # (1.3-7.7) k/uL Lymphocytes # (1.0-4.8) k/uL Monocytes # (0-1.0) k/uL Eosinophils # (0-0.7) k/uL Basophils # (0-0.2) k/uL Sodium (137-145) mmol/L Potassium (3.5-5.1) mmol/L Chloride (98-107) mmol/L Carbon Dioxide (22-30) mmol/L Anion Gap mmol/L BUN (7-17) mg/dL Creatinine (0.52-1.04) mg/dL Est GFR (CKD-EPI)AfAm (>60 ml/min/1.73 sqM) Est GFR (CKD-EPI)NonAf (>60 ml/min/1.73 sqM) Glucose (74-99) mg/dL Calcium (8.4-10.2) mg/dL Phosphorus (2.5-4.5) mg/dL Magnesium (1.6-2.3) mg/dL Total Bilirubin (0.2-1.3) mg/dL AST (14-36) U/L ALT (4-34) U/L Alkaline Phosphatase (38-126) U/L Troponin I (0.000-0.034) ng/mL Total Protein (6.3-8.2) g/dL Albumin (3.5-5.0) g/dL Urine Color Light Yellow Urine Appearance Clear (Clear) Urine pH 7.0 (5.0-8.0) Ur Specific [place] 1.011 (1.001-1.035) Urine Protein Negative (Negative) Urine Glucose (UA) Negative (Negative) Urine Ketones Negative (Negative) Urine Blood Negative (Negative) Urine Nitrite Negative (Negative) Urine Bilirubin Negative (Negative) Urine Urobilinogen <2.0 (<2.0) mg/dL Ur Leukocyte Esterase Negative (Negative) - Radiology Data Radiology results: report reviewed (CT brain CT head neck negative for acute disease), image reviewed Disposition Clinical Impression: Transient cerebral ischemia, Cerebrovascular accident Disposition: HOME SELF-CARE Condition: Good Instructions (If sedation given, give patient instructions): Transient Ischemic Attack (ED), Stroke (DC) Is patient prescribed a controlled substance at d/c from ED?: No Referrals: Parvez Villarreal MD [Primary Care Provider] - 1-2 days
[2019-10-31 13:53] LABS: Albumin 4.6 g/dL (3.5-5.0); Calcium 10.4 mg/dL (8.4-10.2); Phosphorus 4.4 mg/dL (2.5-4.5); Potassium 4.8 mmol/L (3.5-5.1); Total Bilirubin 0.5 mg/dL (0.2-1.3); Total Protein 7.1 g/dL (6.3-8.2)
[2019-10-31 15:03] LABS: Appearance,Urine Clear (Clear); Bilirubin,Urine Negative (Negative); Blood,Urine Negative (Negative); Color,Urine Light Yellow; Glucose,Urine (UA) Negative (Negative); Ketones,Urine Negative (Negative); Leukocyte Esterase,Urine Negative (Negative); Nitrite,Urine Negative (Negative); Protein,Urine Negative (Negative); Specific Gravity,Urine 1.011 (1.001-1.035); Urobilinogen,Urine <2.0 mg/dL (<2.0)
--- NOTE | 2019-10-31 15:49 | CT ---
EXAMINATION TYPE: CT brain wo con DATE OF EXAM: 10/31/2019 COMPARISON: CT brain 09/03/2018 HISTORY: Dizziness, weakness CT DLP: 1392.2 mGycm Automated exposure control for dose reduction was used. Helical imaging through the brain. FINDINGS: Periventricular white matter shows low attenuation as on prior exam. Cerebral vascular calcifications are present. There is no hemorrhage or hydrocephalus. Orbits show symmetric appearance. Calvarium is intact. Paranasal sinuses and mastoid air cells are unremarkable. IMPRESSION: STABLE NONSPECIFIC WHITE MATTER DEMYELINATION.
--- NOTE | 2019-10-31 16:26 | CT ---
EXAMINATION TYPE: CT angio head neck DATE OF EXAM: 10/31/2019 HISTORY: Dizziness COMPARISON: Prior CT angiogram of the head and neck 09/03/2018 CT DLP: 1392.2 mGycm. Automated Exposure Control for Dose Reduction was Utilized. TECHNIQUE: CTA scan of the neck is performed without and with IV Contrast, patient injected with 65 ml mL of Isovue 370, axial images are obtained, coronal and sagittal reformatted images are reviewed. Three-D reconstructed images are created on an independent workstation and reviewed. FINDINGS: Carotid/Vascular Structures: Cerebral vascular calcifications are present. Anterior posterior circula tion is intact. No evident aneurysm, embolus, or dissection. For super aortic branch vessels are pres ent. Transverse aorta, left and right subclavian, left and right common carotid, left and right internal a nd external carotid arteries are patent, vertebral arteries are patent, right vertebral artery is dom inant. Other: Lung apices are remarkable for scattered groundglass opacities. Degenerative disc disease pres ent within the visualized spine, there is multilevel foraminal encroachment. IMPRESSION: No evident proximal internal carotid artery or vertebral artery stenosis.
[2019-10-31 17:18] VITALS: BP 156/75; PULSE 63; RESP 16; TEMP 98.8
== END 2019-10-31 17:15 | disposition home or self-care (01) ==
LOC: EC 12:50
DX: I63.9 Cerebral infarction, unspecified (principal); G45.9 Transient cerebral ischemic attack, unspecified; K21.9 Gastro-esophageal reflux disease without esophagitis; E78.5 Hyperlipidemia, unspecified; I10 Essential (primary) hypertension; K58.9 Irritable bowel syndrome, unspecified; M81.0 Age-related osteoporosis without current pathological fracture; M19.90 Unspecified osteoarthritis, unspecified site; N32.81 Overactive bladder; F32.9 Major depressive disorder, single episode, unspecified; F41.9 Anxiety disorder, unspecified; H91.90 Unspecified hearing loss, unspecified ear; Z87.891 Personal history of nicotine dependence; Z88.0 Allergy status to penicillin; Z88.1 Allergy status to other antibiotic agents; Z88.5 Allergy status to narcotic agent; Z88.8 Allergy status to other drugs, medicaments and biological substances; Z79.02 Long term (current) use of antithrombotics/antiplatelets; Z79.52 Long term (current) use of systemic steroids; Z79.891 Long term (current) use of opiate analgesic; Z79.899 Other long term (current) drug therapy
CPT/HCPCS: 99285; 96374; 96376; 96361; 36415; 93005; 80053; 83735; 84100; 84484; 85025; 81003; 70496; 70450; 70498; J2405; Q9967

== ENCOUNTER → 2020-01-21 | Outpatient (CLI) | payer MEDICARE, BC ==
[2020-01-21 14:04] VITALS: BP 145/77; PULSE 59; RESP 18; TEMP 98.3
== END | disposition home or self-care (01) ==
LOC: PROCWHC3 13:37
PROVIDERS: ATTEND Family Medicine
DX: M81.0 Age-related osteoporosis without current pathological fracture (principal)
CPT/HCPCS: 96372; J0897

== ENCOUNTER → 2020-07-28 | Outpatient (CLI) | payer MEDICARE, BC ==
[~2020-07-28] MED LIST changes: -DENOSUMAB 60 MG/ML 1 ML SYRINGE SQ NR; +DENOSUMAB 60 MG/ML 1 ML SYRINGE SQ ONE
[2020-07-28 13:50] VITALS: BP 130/59; PULSE 63; RESP 16; TEMP 98.3
== END | disposition home or self-care (01) ==
LOC: PROCWHC3 13:43
PROVIDERS: ATTEND Family Medicine
DX: M81.0 Age-related osteoporosis without current pathological fracture (principal)
CPT/HCPCS: 96372; J0897

== ENCOUNTER → 2021-01-30 | Outpatient (CLI) | payer MEDICARE, BC ==
[~2021-01-30] MED LIST changes: +DENOSUMAB 60 MG/ML 1 ML SYRINGE SQ NR; -DENOSUMAB 60 MG/ML 1 ML SYRINGE SQ ONE
[2021-01-30 14:10] VITALS: BP 125/79; PULSE 69; RESP 16; TEMP 98.7
== END | disposition home or self-care (01) ==
LOC: PROCWHC3 13:14
PROVIDERS: ATTEND Family Medicine
DX: M81.0 Age-related osteoporosis without current pathological fracture (principal)
CPT/HCPCS: 96372; J0897

== ENCOUNTER 2021-05-03 15:07 | Emergency (ER) | payer MEDICARE, BC ==
[2021-05-03] MEDS ORDERED: LORazepam 2 MG/ML INJ IV STA (17:06)
[2021-05-03 17:21] LABS: Appearance,Urine Clear (Clear); Bilirubin,Urine Negative (Negative); Blood,Urine Negative (Negative); Color,Urine Light Yellow; Glucose,Urine (UA) Negative (Negative); Ketones,Urine Negative (Negative); Leukocyte Esterase,Urine Negative (Negative); Nitrite,Urine Negative (Negative); PH, Urine 6.5 (5.0-8.0); Protein,Urine Negative (Negative); Specific Gravity,Urine 1.007 (1.001-1.035); Urobilinogen,Urine <2.0 mg/dL (<2.0)
[2021-05-03 17:31] LABS: Basophils % (A) 1 %; Eosinophils % (A) 0 %; HCT 36.9 % (34.0-46.0); HGB 13.2 gm/dL (11.4-16.0); Hyperchromasia Slight; INR 0.9 (<1.2); Lymphocytes # (A) 1.4 k/uL (1.0-4.8); Lymphocytes % (A) 21 %; MCH 32.6 pg (25.0-35.0); MCHC 35.8 g/dL (31.0-37.0); MCV 91.1 fL (80.0-100.0); Mean Platelet Volume 6.5; Monocytes # (A) 0.3 k/uL (0-1.0); Monocytes % (A) 5 %; Neutrophils % (A) 72 %; Partial Thromboplastin Time 23.1 sec (22.0-30.0); Platelet Count 212 k/uL (150-450); Prothrombin Time 9.9 sec (9.0-12.0); RBC 4.05 m/uL (3.80-5.40); RDW 12.9 % (11.5-15.5)
[2021-05-03 17:32] LABS: ALT 14 U/L (4-34); AST 18 U/L (14-36); African American GFR (CKD) >90 (>60 ml/min/1.73 sqM); Albumin 4.1 g/dL (3.5-5.0); Alkaline Phosphatase 31 U/L (38-126); Anion Gap 8 mmol/L; Blood Urea Nitrogen 16 mg/dL (7-17); Calcium 9.2 mg/dL (8.4-10.2); Carbon Dioxide 28 mmol/L (22-30); Chloride 95 mmol/L (98-107); Glucose 94 mg/dL (74-99); Non-African American GFR(CKD) 89 (>60 ml/min/1.73 sqM); Potassium 3.9 mmol/L (3.5-5.1); Sodium 131 mmol/L (137-145); Total Bilirubin 0.3 mg/dL (0.2-1.3); Total Protein 6.5 g/dL (6.3-8.2)
--- NOTE | 2021-05-03 17:32 | ED ---
General Adult HPI - General Chief complaint: Syncope Stated complaint: Syncope Time Seen by Provider: 05/03/21 16:23 Source: patient, family Mode of arrival: wheelchair Limitations: no limitations - History of Present Illness Initial comments: Patient is a 70-year-old female with history of TIAs, hypertension, presenting to the emergency Department after having a syncopal event yesterday. Patient states that approximate 4 AM yesterday morning she woke up feeling nauseous, she walked to the kitchen to get some nausea medication when she had a syncopal event in the kitchen. She states when she came to, about 20 seconds later she noticed she had a bump on the back of her head. Patient states she is on Plavix secondary to a few mini strokes over the past couple years. She denies any neck pain. She states that she does occasionally get lightheaded when she changes positions, she denies any dizziness today. She does have a small headache in the back of her head where she hit. She denies any nausea or vomiting, no chest pain or shortness of breath. She denies any blurry vision. She states she did call her doctor's office today who recommended coming into the ER for evaluation. She denies any new medications, no dysuria. She denies any fevers or chills. She has no further complaints at this time. Upon arrival to the ER, her vitals are stable. - Related Data Home Medications Medication Instructions Recorded Confirmed Clopidogrel [Plavix] 75 mg PO DAILY 08/20/15 01/30/21 Loperamide [Imodium] 2 mg PO QID PRN 08/20/15 01/30/21 fluocinolone acetonide oiL 2 drop BOTH EARS BID PRN 08/20/15 01/30/21 [Fluocinolone Acetonide Oil (Otic)] L.acidoph,Paracasei, B.lactis 1 cap PO DAILY 08/21/15 01/30/21 [Probiotic] Meclizine [Antivert] 25 - 50 mg PO DAILY PRN 08/21/15 01/30/21 Oxybutynin Chloride [Oxybutynin 15 mg PO DAILY 08/21/15 01/30/21 Chloride ER] Atorvastatin Calcium [Lipitor] 10 mg PO DAILY 12/17/16 01/30/21 Fexofenadine HCl [Charo Allergy] 100 mg PO DAILY 12/17/16 01/30/21 Phenylephrine HCl/[place] Butter 1 supp RECTAL DAILY PRN 12/17/16 01/30/21 [Preparation H Suppository] Triamcinolone Acetonide [Nasacort] 1 - 2 spray EA NOSTRIL DAILY PRN 12/17/16 01/30/21 LORazepam [Ativan] 0.5 mg PO BID 08/24/18 01/30/21 Magnesium Citrate 296 ml PO DAILY PRN 08/24/18 01/30/21 Montelukast [Singulair] 10 mg PO HS 08/24/18 01/30/21 Multivitamins, Thera [Multivitamin 1 tab PO DAILY 08/24/18 01/30/21 (formulary)] Prochlorperazine [Compazine] 5 mg PO Q6HR PRN 08/24/18 01/30/21 Restfull Legs 1 tab PO DAILY PRN 08/24/18 01/30/21 Acetaminophen-Codeine 300-30mg 1 tab PO BID PRN 04/05/19 01/30/21 [Tylenol w/codeine #3] Baclofen [Lioresal] 5 mg PO Q8H PRN 04/05/19 01/30/21 Calcium Carb/Magnesium Hydrox 1 tab PO Q2H PRN 04/05/19 01/30/21 [Rolaids Chewable Tablet] Ubidecarenone [Co Q-10] 200 mg PO DAILY 04/05/19 01/30/21 ondansetron HCL [Zofran] 8 mg PO Q6H PRN 04/05/19 01/30/21 polyethylene glycoL 3350 [Miralax] 17 gram PO DAILY PRN 04/05/19 01/30/21 ALPRAZolam [Xanax] 0.5 mg PO BID PRN 10/31/19 01/30/21 Artificial Tears-Hypromellose 1 drop BOTH EYES QID PRN 10/31/19 01/30/21 [Artificial Tear Drops] Atenolol/Chlorthalidone 1 tab PO DAILY 10/31/19 01/30/21 [Atenolol-Chlorthalidone 50-25] Denosumab [Prolia] 60 mg SQ Q180D 10/31/19 01/30/21 Famotidine [Pepcid AC] 10 mg PO DAILY PRN 10/31/19 01/30/21 Glycerin Adult Suppository 1 supp RECTAL ONCE PRN 10/31/19 01/30/21 Sennosides-Docusate Sodium 2 tab PO DAILY PRN 10/31/19 01/30/21 [Senokot-S] Simethicone [Gas-X] 125 mg PO QID PRN 10/31/19 01/30/21 Triamcinolone 0.025% Cream 1 applic TOPICAL BID PRN 10/31/19 01/30/21 [Kenalog 0.025% Cream] traZODone HCL 100 mg PO HS 10/31/19 01/30/21 Sertraline HCl [Zoloft] 1 tab PO DAILY 07/28/20 01/30/21 Allergies Allergy/AdvReac Type Severity Reaction Status Date / Time amoxicillin [From Augmentin] Allergy Unknown Verified 05/03/21 16:09 cefuroxime axetil Allergy Unknown Verified 05/03/21 16:09 [From Ceftin] clavulanic acid Allergy Unknown Verified 05/03/21 16:09 [From Augmentin] dicyclomine [From Bentyl] Allergy Unknown Verified 05/03/21 16:09 hyoscyamine [From Levbid] Allergy Unknown Verified 05/03/21 16:09 levofloxacin [From Levaquin] Allergy Unknown Verified 05/03/21 16:09 tramadol Allergy Unknown Verified 05/03/21 16:09 Review of Systems ROS Statement: Those systems with pertinent positive or pertinent negative responses have been documented in the HPI. ROS Other: All systems not noted in ROS Statement are negative. Past Medical History Past Medical History: CVA/TIA, GERD/Reflux, Hyperlipidemia, Hypertension, Osteoarthritis (OA) Additional Past Medical History / Comment(s): IBS, overactive bladder; vertigo, diverticulosis, uterine fibroids, [place]. OSTEOPOROSIS. History of Any Multi-Drug Resistant Organisms: None Reported Past Surgical History: Breast Surgery Additional Past Surgical History / Comment(s): egd/colonoscopy, lt breast bx Past Anesthesia/Blood Transfusion Reactions: No Reported Reaction Past Psychological History: Anxiety, Depression Smoking Status: Never smoker Past Alcohol Use History: None Reported Past Drug Use History: None Reported - Past Family History Father Family Medical History: Myocardial Infarction ([place]) Mother Family Medical History: Congestive Heart Failure (CHF) General Exam - General Exam Comments Initial Comments: GENERAL: Patient is well-developed and well-nourished. Patient is nontoxic and in no acute distress. HEAD: Patient does have a small hematoma to the posterior aspect of her skull, this is black and blue in color and tender to palpation. No signs of basal skull fracture. EYES: Pupils equal round and reactive to light, extraocular movements intact, sclera a nicteric, conjunctiva are normal. Eyelids were unremarkable. ENT: TMs normal, nares patent, oropharynx clear without exudates. Moist mucous membranes. NECK: Normal range of motion, supple without lymphadenopathy or JVD. There is no midline tenderness. LUNGS: Unlabored respirations. Breath sounds clear to auscultation bilaterally and equal. No wheezes rales or rhonchi. HEART: Regular rate and rhythm without murmurs, rubs or gallops. ABDOMEN: Soft, nontender, normoactive bowel sounds. No guarding, no rebound. No masses appreciated. : Deferred MUSCULOSKELETAL: Normal extremities with adequate strength and normal range of motion, no pitting or edema. No clubbing or cyanosis. NEUROLOGICAL: Patient is alert and oriented x 3. Motor and sensory are also intact. Cranial nerves II through XII grossly intact. Symmetrical smile. Normal speech, normal gait. PSYCH: Normal mood, normal affect. SKIN: Warm, Dry, normal turgor, no rashes or lesions noted. Limitations: no limitations Course Vital Signs 05/03/21 16:03 Temperature 98.3 F Pulse Rate 72 Respiratory 20 Rate Blood Pressure 147/68 O2 Sat by Pulse 100 Oximetry EKG Findings - EKG Comments: EKG Findings:: Normal sinus rhythm, right bundle renzo block, no signs of acute process. This is similar to previous EKG on 10/31/2019. Ventricular rate 68, WI interval 138, QTC 426. Medical Decision Making - Medical Decision Making Patient is a 70-year-old female here after having a syncopal episode yesterday morning, she is on Plavix. She does have a hematoma to the posterior skull. Other than a mild headache today, she has no other symptoms today. Her exam is unremarkable, no acute neuro deficits. EKG shows no acute process. CT of the brain and C-spine show no acute abnormality, chest x-ray is normal. Labs are within normal limits, urine is normal. Patient has been asymptomatic here in the ER. Her vital signs remained stable. Discussed with her that this is most likely a syncopal event due to blood pressure changes with positional changes. She does have an appointment with her PCP tomorrow. She is stable for discharge. Return parameters were discussed with her and her and they both verbalized understanding. Case discussed with Dr. Arteaga. - Lab Data Result diagrams: 05/03/21 17:06 05/03/21 17:06 Lab Results 05/03/21 05/03/21 05/03/21 Range/Units 17:06 17:06 17:06 WBC 7.0 (3.8-10.6) k/uL RBC 4.05 (3.80-5.40) m/uL Hgb 13.2 (11.4-16.0) gm/dL Hct 36.9 (34.0-46.0) % MCV 91.1 (80.0-100.0) fL MCH 32.6 (25.0-35.0) pg MCHC 35.8 (31.0-37.0) g/dL RDW 12.9 (11.5-15.5) % Plt Count 212 (150-450) k/uL MPV 6.5 Neutrophils % 72 % Lymphocytes % 21 % Monocytes % 5 % Eosinophils % 0 % Basophils % 1 % Neutrophils # 5.0 (1.3-7.7) k/uL Lymphocytes # 1.4 (1.0-4.8) k/uL Monocytes # 0.3 (0-1.0) k/uL Eosinophils # 0.0 (0-0.7) k/uL Basophils # 0.0 (0-0.2) k/uL Hyperchromasia Slight PT (9.0-12.0) sec INR (<1.2) APTT (22.0-30.0) sec Sodium 131 L (137-145) mmol/L Potassium 3.9 (3.5-5.1) mmol/L Chloride 95 L (98-107) mmol/L Carbon Dioxide 28 (22-30) mmol/L Anion Gap 8 mmol/L BUN 16 (7-17) mg/dL Creatinine 0.65 (0.52-1.04) mg/dL Est GFR (CKD-EPI)AfAm >90 (>60 ml/min/1.73 sqM) Est GFR (CKD-EPI)NonAf 89 (>60 ml/min/1.73 sqM) Glucose 94 (74-99) mg/dL Calcium 9.2 (8.4-10.2) mg/dL Total Bilirubin 0.3 (0.2-1.3) mg/dL AST 18 (14-36) U/L ALT 14 (4-34) U/L Alkaline Phosphatase 31 L (38-126) U/L Troponin I (0.000-0.034) ng/mL Total Protein 6.5 (6.3-8.2) g/dL Albumin 4.1 (3.5-5.0) g/dL Urine Color Light Yellow Urine Appearance Clear (Clear) Urine pH 6.5 (5.0-8.0) Ur Specific [place] 1.007 (1.001-1.035) Urine Protein Negative (Negative) Urine Glucose (UA) Negative (Negative) Urine Ketones Negative (Negative) Urine Blood Negative (Negative) Urine Nitrite Negative (Negative) Urine Bilirubin Negative (Negative) Urine Urobilinogen <2.0 (<2.0) mg/dL Ur Leukocyte Esterase Negative (Negative) 05/03/21 05/03/21 Range/Units 17:06 17:06 WBC (3.8-10.6) k/uL RBC (3.80-5.40) m/uL Hgb (11.4-16.0) gm/dL Hct (34.0-46.0) % MCV (80.0-100.0) fL MCH (25.0-35.0) pg MCHC (31.0-37.0) g/dL RDW (11.5-15.5) % Plt Count (150-450) k/uL MPV Neutrophils % % Lymphocytes % % Monocytes % % Eosinophils % % Basophils % % Neutrophils # (1.3-7.7) k/uL Lymphocytes # (1.0-4.8) k/uL Monocytes # (0-1.0) k/uL Eosinophils # (0-0.7) k/uL Basophils # (0-0.2) k/uL Hyperchromasia PT 9.9 (9.0-12.0) sec INR 0.9 (<1.2) APTT 23.1 (22.0-30.0) sec Sodium (137-145) mmol/L Potassium (3.5-5.1) mmol/L Chloride (98-107) mmol/L Carbon Dioxide (22-30) mmol/L Anion Gap mmol/L BUN (7-17) mg/dL Creatinine (0.52-1.04) mg/dL Est GFR (CKD-EPI)AfAm (>60 ml/min/1.73 sqM) Est GFR (CKD-EPI)NonAf (>60 ml/min/1.73 sqM) Glucose (74-99) mg/dL Calcium (8.4-10.2) mg/dL Total Bilirubin (0.2-1.3) mg/dL AST (14-36) U/L ALT (4-34) U/L Alkaline Phosphatase (38-126) U/L Troponin I <0.012 (0.000-0.034) ng/mL Total Protein (6.3-8.2) g/dL Albumin (3.5-5.0) g/dL Urine Color Urine Appearance (Clear) Urine pH (5.0-8.0) Ur Specific [place] (1.001-1.035) Urine Protein (Negative) Urine Glucose (UA) (Negative) Urine Ketones (Negative) Urine Blood (Negative) Urine Nitrite (Negative) Urine Bilirubin (Negative) Urine Urobilinogen (<2.0) mg/dL Ur Leukocyte Esterase (Negative) Disposition Clinical Impression: Syncope, Fall Disposition: HOME SELF-CARE Condition: Stable Instructions (If sedation given, give patient instructions): Syncope (ED) Additional Instructions: Please return to the Emergency Department if symptoms worsen or any other concerns. Please follow-up with your primary care physician as discussed in 1-3 days. Is patient prescribed a controlled substance at d/c from ED?: No Referrals: Parvez Villarreal MD [Primary Care Provider] - 1-2 days Time of Disposition: 18:17
--- NOTE | 2021-05-03 17:36 | CT ---
EXAMINATION TYPE: CT brain leonel chambers con DATE OF EXAM: 05/03/2021 COMPARISON: CT brain 10/31/2019 HISTORY: Fall with injury. CT DLP: 1296.7 mGycm Automated exposure control for dose reduction was used. There is some cerebral atrophy. There is hypodensity in the periventricular white matter and more not iceable in the frontal parietal lobes. There is no mass effect nor midline shift. There is no sign of intracranial hemorrhage. Calvarium is intact. There is normal aeration of the mastoid sinuses. Skull base is intact. Cervical vertebra have normal alignment. There is narrowing of the C5-6 disc space with moderate spur ring of the endplates anteriorly and posteriorly. There is mild multilevel cervical hypertrophic face t arthropathy. The skull base is intact. Sphenoid bone is intact. I see no bony destructive process. IMPRESSION: Cerebral atrophy. Chronic small vessel ischemia. No change compared to old exam. No acute intracrania l abnormality. No acute abnormality of the cervical spine. Spondylosis at C5-6.
--- NOTE | 2021-05-03 18:06 | XR ---
EXAMINATION TYPE: XR chest 2V DATE OF EXAM: 05/03/2021 COMPARISON: 04/05/2019 HISTORY: Chest pain TECHNIQUE: 2 views FINDINGS: Heart and mediastinum are normal. Lungs are clear. Diaphragm is normal. Bony thorax is inta ct. IMPRESSION: No active cardiopulmonary disease. No change.
[2021-05-03 18:28] VITALS: BP 142/78; PULSE 76; RESP 16; TEMP 98.4
== END 2021-05-03 18:28 | disposition home or self-care (01) ==
LOC: EC 15:07
DX: S00.03XA Contusion of scalp, initial encounter (principal); R55 Syncope and collapse; I10 Essential (primary) hypertension; E78.5 Hyperlipidemia, unspecified; K21.9 Gastro-esophageal reflux disease without esophagitis; M19.90 Unspecified osteoarthritis, unspecified site; M81.0 Age-related osteoporosis without current pathological fracture; F32.9 Major depressive disorder, single episode, unspecified; F41.9 Anxiety disorder, unspecified; Z86.73 Personal history of transient ischemic attack (TIA), and cerebral infarction without residual deficits; Z79.02 Long term (current) use of antithrombotics/antiplatelets; Z79.899 Other long term (current) drug therapy; Z88.1 Allergy status to other antibiotic agents; Z88.5 Allergy status to narcotic agent; Z88.8 Allergy status to other drugs, medicaments and biological substances; Z88.0 Allergy status to penicillin; W18.39XA Other fall on same level, initial encounter
CPT/HCPCS: 96374 ×2; 99285 ×2; 36415; 93005; 80053; 84484; 85025; 85610; 85730; 81003; 71046; 72125; 70450; J2060

== ENCOUNTER → 2021-08-04 | Outpatient (CLI) | payer MEDICARE, BC ==
[2021-08-04 13:56] VITALS: BP 128/49; PULSE 63; RESP 16; TEMP 98.5
== END ==
LOC: PROCWHC3 13:05
PROVIDERS: ATTEND Family Medicine
DX: M81.0 Age-related osteoporosis without current pathological fracture (principal); Z88.1 Allergy status to other antibiotic agents; Z88.6 Allergy status to analgesic agent; Z88.8 Allergy status to other drugs, medicaments and biological substances; Z87.891 Personal history of nicotine dependence
CPT/HCPCS: 96372; J0897

== ENCOUNTER → 2022-02-01 | Outpatient (CLI) | payer MEDICARE, BC ==
[2022-02-01 10:39] VITALS: BP 126/61; PULSE 71; RESP 15; TEMP 71
== END ==
LOC: PROCWHC3 10:18
PROVIDERS: ATTEND Family Medicine
DX: M81.0 Age-related osteoporosis without current pathological fracture (principal); Z87.891 Personal history of nicotine dependence; Z88.1 Allergy status to other antibiotic agents; Z88.2 Allergy status to sulfonamides; Z88.5 Allergy status to narcotic agent
CPT/HCPCS: 96372; J0897

== ENCOUNTER → 2022-08-09 | Outpatient (CLI) | payer MEDICARE, BC ==
[2022-08-09 12:51] VITALS: BP 119/64; PULSE 64; RESP 16; TEMP 98.5
== END ==
LOC: PROCWHC3 12:23
PROVIDERS: ATTEND Family Medicine
DX: M81.0 Age-related osteoporosis without current pathological fracture (principal); Z88.1 Allergy status to other antibiotic agents; Z88.8 Allergy status to other drugs, medicaments and biological substances; Z88.9 Allergy status to unspecified drugs, medicaments and biological substances; Z88.3 Allergy status to other anti-infective agents; Z88.5 Allergy status to narcotic agent; Z88.0 Allergy status to penicillin; Z87.891 Personal history of nicotine dependence
CPT/HCPCS: 96372; J0897

== ENCOUNTER → 2022-08-09 | Outpatient (CLI) | payer MEDICARE, BC ==
--- NOTE | 2022-08-10 07:23 | MM ---
Reason for Exam: Screening (asymptomatic). Last mammogram was performed 3 year(s) and 0 month(s) ago. Patient History: Menarche at age 10. First Full-Term at age 19. Postmenopausal. Estrogen for 11 years, 9 months, until age 61. Progesterone for 11 years, 9 months, until age 61. Benign Excisional Biopsy on the left side. Benign Excisional Biopsy on the left side. Risk Values: Elvira 5 year model risk: 2.4%. NCI Lifetime model risk: 5.8%. Prior Study Comparison: 03/21/2017 Bilateral Screening Mammogram, [facility]. 08/06/2018 Bilateral Screening Mammogram, [facility]. 08/07/2019 Bilateral Screening Mammogram, [facility]. Tissue Density: The breast tissue is heterogeneously dense. This may lower the sensitivity of mammography. Findings: Analyzed By CAD. There is no suspicious group of microcalcifications or new suspicious mass in either breast. Chronic nodularity seen. Overall Assessment: Benign, BI-RAD 2 Management: Screening Mammogram of both breasts in 1 year. A clinical breast exam by your physician is recommended on an annual basis and results should be correlated with mammographic findings. Electronically signed and approved by: Jimenez Pereira M.D. Radiologis
== END | disposition home or self-care (01) ==
LOC: RADMAMWWP 12:59
PROVIDERS: ATTEND Family Medicine
DX: Z12.31 Encounter for screening mammogram for malignant neoplasm of breast (principal); Z78.0 Asymptomatic menopausal state; Z98.890 Other specified postprocedural states
CPT/HCPCS: 77063; 77067

== ENCOUNTER 2023-01-23 10:01 | Day surgery (SDC) | payer MEDICARE, BC ==
[2023-01-18 11:00] VITALS: BMI 21.9
[2023-01-23] MEDS ORDERED: LACTATED RINGERS 1,000 ML IV SCH (10:35)
[2023-01-23] MEDS ORDERED: ONDANSETRON 4 MG/2 ML VIAL IVP PRN (10:35)
[2023-01-23] MEDS ORDERED: LIDOCAINE 1% (10MG/ML) FOR IV START INTRADERMA PRN (10:35)
[2023-01-23 11:01] VITALS: TEMP 98.8
[2023-01-23] MEDS ORDERED: PROPOFOL 10 MG/ML 20 ML VIAL IV ONE (12:12)
--- NOTE | 2023-01-23 12:28 | P.PCN ---
Date of Procedure: 01/23/23 Procedure(s) Performed: BRIEF HISTORY: Patient is a 72-year-old pleasant female scheduled for an elective colonoscopy as a part of screening for colon cancer. PROCEDURE PERFORMED: Colonoscopy. PREOPERATIVE DIAGNOSIS: Screening for colon cancer. IV sedation per Anesthesia. PROCEDURE: After informed consent was obtained, the patient, was brought into the endoscopy unit. IV sedation was administered by Anesthesia under continuous monitoring. Digital rectal examination was normal. Initially the Olympus CF-160 flexible video colonoscope was then inserted in the rectum, gradually advanced into the cecum without any difficulty. Careful examination was performed as the scope was gradually being withdrawn. Ileocecal valve and the appendiceal orifice were visualized and appeared normal. Prep was excellent. Mucosa of the cecum, ascending colon, transverse colon, descending colon, sigmoid colon, and rectum appeared normal. Scattered sigmoid diverticulosis Retroflexion was performed in the rectum and no lesions were seen. The patient tolerated the procedure well. IMPRESSION: Normal-appearing colon from rectum to cecum with no evidence of colorectal neoplasia Scattered sigmoid diverticulosis. RECOMMENDATIONS: Findings of this examination were discussed with the patient as well as a family. She was advised to have a repeat screening colonoscopy in 10 years..
[2023-01-23 12:34] VITALS: PULSE 68; RESP 16
[2023-01-23 12:54] VITALS: BP 161/87
== END 2023-01-23 13:20 | disposition home or self-care (01) ==
LOC: ORWHC2ENDO 10:01
PROVIDERS: ATTEND Internal Medicine Gastroenterology
DX: Z12.11 Encounter for screening for malignant neoplasm of colon (principal); K57.30 Diverticulosis of large intestine without perforation or abscess without bleeding; I10 Essential (primary) hypertension; E78.5 Hyperlipidemia, unspecified; M19.90 Unspecified osteoarthritis, unspecified site; K21.9 Gastro-esophageal reflux disease without esophagitis; Z79.899 Other long term (current) drug therapy
CPT/HCPCS: G0121; J2704; 45378

== ENCOUNTER → 2023-03-08 | Outpatient (CLI) | payer MEDICARE, BC ==
[2023-03-08 13:52] VITALS: BP 147/76; PULSE 60; RESP 16; TEMP 97.5
== END ==
LOC: PROCWHC3 13:38
PROVIDERS: ATTEND Family Medicine
DX: M81.0 Age-related osteoporosis without current pathological fracture (principal); Z88.8 Allergy status to other drugs, medicaments and biological substances; Z87.891 Personal history of nicotine dependence
CPT/HCPCS: 96372; J0897

== ENCOUNTER → 2023-09-24 | Outpatient (CLI) | payer MEDICARE, BC ==
[2023-09-24 13:11] VITALS: BP 146/68; PULSE 59; RESP 16; TEMP 98.9
--- NOTE | 2023-09-25 20:11 | MM ---
Reason for Exam: Screening (asymptomatic). Last mammogram was performed 1 year(s) and 2 month(s) ago. Patient History: Menarche at age 10. First Full-Term at age 19. Postmenopausal. Estrogen for 11 years, 9 months, until age 61. Progesterone for 11 years, 9 months, until age 61. Benign Excisional Biopsy on the left side. Benign Excisional Biopsy on the left side. Risk Values: Elvira 5 year model risk: 2.4%. NCI Lifetime model risk: 5.5%. Prior Study Comparison: 08/06/2018 Bilateral Screening Mammogram, [facility]. 08/07/2019 Bilateral Screening Mammogram, [facility]. 08/09/2022 Bilateral MG 3D screening mammo w/cad, [facility]. Tissue Density: There are scattered fibroglandular densities. Findings: Analyzed By CAD. Chronic bilateral nodularity. Also, benign bilateral round calcifications are redemonstrated. There is no suspicious group of microcalcifications or new suspicious mass in either breast. Overall Assessment: Benign, BI-RAD 2 Management: Screening Mammogram of both breasts in 1 year. . Patient should continue monthly self-breast exams. A clinical breast exam by your physician is recommended on an annual basis. This exam should not preclude additional follow-up of suspicious palpable abnormalities. Note on Elvira scores and lifetime risk: 1. A Elvira score greater than 3% is considered moderate risk. If this is the case, consider specialist referral to assess eligibility for a risk reducing agent. 2. If overall lifetime risk for the development of breast cancer is 20% or higher, the patient may qualify for future screening with alternating mammogram and breast MRI. Electronically signed and approved by: Eyad Fritz M.D. Radiologist
== END | disposition home or self-care (01) ==
LOC: PROCWHC3 12:26
PROVIDERS: ATTEND Family Medicine
DX: M81.0 Age-related osteoporosis without current pathological fracture (principal); Z12.31 Encounter for screening mammogram for malignant neoplasm of breast; Z78.0 Asymptomatic menopausal state
CPT/HCPCS: 77067; 77063; 96372; J0897

== ENCOUNTER → 2024-06-11 | Outpatient (CLI) | payer MEDICARE, BC ==
[2024-06-11] MEDS: DENOSUMAB 60 MG/ML 1 ML SYRINGE SQ ONE (13:45)
[2024-06-11 13:49] VITALS: BP 123/51; PULSE 67; RESP 16; TEMP 98.2
== END ==
LOC: PROCWHC3 13:34
PROVIDERS: ATTEND Physician Assistant Medical
DX: M81.0 Age-related osteoporosis without current pathological fracture (principal)
CPT/HCPCS: 96372; J0897

== ENCOUNTER → 2025-04-22 | Outpatient (CLI) | payer MEDICARE, BC ==
--- NOTE | 2025-04-22 15:18 | MM ---
Reason for Exam: Screening (asymptomatic). Last mammogram was performed 1 year(s) and 7 month(s) ago. Patient History: Menarche at age 10. First Full-Term at age 19. Postmenopausal. Estrogen for 11 years, 9 months, until age 61. Progesterone for 11 years, 9 months, until age 61. Benign Excisional Biopsy on the left side. Benign Excisional Biopsy on the left side. Risk Values: Elvira 5 year model risk: 2.4%. NCI Lifetime model risk: 4.8%. Prior Study Comparison: 08/07/2019 Bilateral Screening Mammogram, [facility]. 08/09/2022 Bilateral MG 3D screening mammo w/cad, [facility]. 09/24/2023 Bilateral MG 3D screening mammo w/cad, [facility]. Tissue Density: The breasts are heterogeneously dense, which may obscure small masses. Findings: Analyzed By CAD. There is no suspicious group of microcalcifications or new suspicious mass in either breast. Benign-appearing calcifications. Stable bilateral chronic nodularity. Benign-appearing lymph nodes. Overall Assessment: Benign, BI-RAD 2 Management: Screening Mammogram of both breasts in 1 year. . Patient should continue monthly self-breast exams. A clinical breast exam by your physician is recommended on an annual basis. This exam should not preclude additional follow-up of suspicious palpable abnormalities. Note on Elvira scores and lifetime risk: 1. A Elvira score greater than 3% is considered moderate risk. If this is the case, consider specialist referral to assess eligibility for a risk reducing agent. 2. If overall lifetime risk for the development of breast cancer is 20% or higher, the patient may qualify for future screening with alternating mammogram and breast MRI. [facility], , 04/22/2025 3:16 PM. Electronically signed and approved by: Devin Allison M.D. Radiologis
== END | disposition home or self-care (01) ==
LOC: RADMAMWWP 14:47
PROVIDERS: ATTEND Family Medicine
DX: Z12.31 Encounter for screening mammogram for malignant neoplasm of breast (principal); R92.333 Mammographic heterogeneous density, bilateral breasts; R92.1 Mammographic calcification found on diagnostic imaging of breast; Z78.0 Asymptomatic menopausal state
CPT/HCPCS: 77063; 77067

== ENCOUNTER → 2025-05-21 | Outpatient (CLI) | payer MEDICARE, BC ==
[2025-05-21 12:55] VITALS: BP 154/79; PULSE 54; RESP 16; TEMP 98.4
[2025-05-21] MEDS: DENOSUMAB 60 MG/ML 1 ML SYRINGE SQ NR (12:55)
== END ==
LOC: PROCWHC3 12:25
PROVIDERS: ATTEND Physician Assistant
DX: M81.0 Age-related osteoporosis without current pathological fracture (principal)
CPT/HCPCS: 96372; J0897